=== PATIENT | female | born 1940 | race Caucasian/White ===

== ENCOUNTER → 2017-12-18 16:07 | Outpatient (CLI) | payer MEDICARE, OTHER, SELFPAY ==
[2017-12-18 17:40] LABS: Anion Gap 6 (5-15); BUN 26 mg/dL (7-18); Chloride 103 mmol/L (98-107); Creatinine, Serum 1.04 mg/dL (0.55-1.02); EST Glomerular Filtration Rate 54 mL/min (>60); Est Glom Filt Rate - Afr Amer 66 mL/min (>60); Glucose 92 mg/dL (74-106); Potassium 4.2 mmol/L (3.5-5.1); Sodium Level 139 mmol/L (136-145)
== END ==
PROVIDERS: Family Provider Family Medicine; PCP Family Medicine; Visit Provider Family Medicine
DX: I10 Essential (primary) hypertension (principal)
CPT/HCPCS: 36415; 80048

== ENCOUNTER 2018-02-28 15:30 | Outpatient (RCR) | payer MEDICARE, OTHER, SELFPAY ==
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
--- NOTE | 2018-02-05 16:53 | HP.PTREVAL_ITS ---
Gamal Rey, It has been my pleasure to treat LUANA LITTLE over the last 8 visits for DDD /LBP. Please see the progress note below for an update on the physical therapy plan of care! Subjective: Pt feels that she has made a little bit of improvement. She feels her improvement has been made as far as posture. Her pain is still there when if she sits down and does not have back support so she puts a blanket back there. She wants to continue with therapy as she still feels she is making improvements. Pt reports that she does exercises on the days when she feels good. Pt reports that her balance has been pretty good. Objective/Function: Pt still walks with decrease stride and decreased foot clearance. She also walks with knees bent. She is I HEP and does it when she feels well. FGA: 10. LE MMT: B hip flex 3+/5, Knee flex 4-/5, knee ext 4-/ 5. Pt was standing in the hallway and all the sudden she scissored and corrected balance as she stepped toward the wall. Plan Plan: 2X/ week for 4 weeks to Work on Postural strength, and core stability. Continue to work on LE strength and balance as well especially with gait. Goals Goal 1:: I HEP Goal Time Frame: 4-6 Weeks Goal Progress: Goal Met Goal 2:: Increase B LE strength to 4/5 hip abd, hip flex, knee flex and knee ext Goal Time Frame: 4-6 Weeks Goal 3:: Increase FGA by 5 points to decrease fall risk (improve to score of 13) . Goal Time Frame: 4-6 Weeks Goal Progress: Progressing Goal 4:: Increase gait to be able to walk with increase stride and less vearing with gait Goal Time Frame: 4-6 Weeks Goal Progress: Progressing Goal 5:: Decrease back pain to 1/10 with ADL's Goal Time Frame: 4-6 Weeks Anticipated Interventions Patient/Client Instruction: Educate patient on: Plan of Care For the Purpose of:: To decrease pain, To increase ROM, To improve muscle performance and motor function, To increase tolerance to activity/condition/ position Therapeutic Exercise to Include: Strength training, Balance training, Coordination, Body mechanics, Postural training, Flexibilty training, Gait and locomotor training, Neuromotor development, Passive ROM, Active ROM, Dynamic Lumbar Stabilization, Scapular Strength/Stabilization For the Purpose of:: To decrease pain, To increase ROM, To improve nutrient delivery to tissue, To improve muscle performance and motor function, To improve ability to perform ADL's, To increase tolerance to activity/condition/ position, To improve performance and independence with ADL's, To decrease level of supervision to perform tasks, To improve ability of physical actions for home /community/work/leisure, To improve gait and locomotor functions, To increase flexibility/ROM, To improve balance, To improve safety with gait Functional Training to Include: Gait training For the Purpose of:: To improve gait and locomotor functions, To improve safety with gait Manual Therapy Techniques to Include: Passive ROM, Soft tissue mobilization For the Purpose of:: To decrease pain, To decrease swelling/inflammation, To increase ROM, To improve nutrient delivery to tissue, To improve muscle performance and motor function Thermo therapy (hot pack): Yes For the Purpose of:: To decrease pain, To increase ROM, To improve nutrient delivery to tissue Please do not hesitate to contact me at [phone] by phone or Fax: if you have questions or concerns regarding this new plan of care! Sincerely, Pat Bowen
--- NOTE | 2018-06-14 13:45 | HP.PTDCNRP_ITS ---
HP - Discharge Summary (1) - Patient Information LUNAA LITTLE was seen in my office for initial evaluation on 01/01/18. The following Plan of Care was established for this patient: Initial Frequency: 2x /Week Initial Duration: 4 Weeks - Anticipated Interventions Patient/Client Instruction: Educate patient on: Plan of Care For the Purpose of:: To decrease pain, To increase ROM, To improve muscle performance and motor function, To increase tolerance to activity/condition/ position Therapeutic Exercise to Include: Strength training, Balance training, Coordination, Body mechanics, Postural training, Flexibilty training, Gait and locomotor training, Neuromotor development, Passive ROM, Active ROM, Dynamic Lumbar Stabilization, Scapular Strength/Stabilization For the Purpose of:: To decrease pain, To increase ROM, To improve nutrient delivery to tissue, To improve muscle performance and motor function, To improve ability to perform ADL's, To increase tolerance to activity/condition/ position, To improve performance and independence with ADL's, To decrease level of supervision to perform tasks, To improve ability of physical actions for home /community/work/leisure, To improve gait and locomotor functions, To increase flexibility/ROM, To improve balance, To improve safety with gait Functional Training to Include: Gait training For the Purpose of:: To improve gait and locomotor functions, To improve safety with gait Manual Therapy Techniques to Include: Passive ROM, Soft tissue mobilization For the Purpose of:: To decrease pain, To decrease swelling/inflammation, To increase ROM, To improve nutrient delivery to tissue, To improve muscle performance and motor function Thermo therapy (hot pack): Yes For the Purpose of:: To decrease pain, To increase ROM, To improve nutrient delivery to tissue This patient was last seen in our office 02/28/18. Pertinent comments regarding their Physical therapy will appear below: DC PT as pt will be doing some home health until she gets stronger. DC PT At this point I will be discontinuing this patient from physical therapy. I would be happy to see this patient again in the future if found appropriate by the physician. Thank you! Pat Bowen
== END 2018-02-28 19:00 | disposition home or self-care (01) ==
LOC: PT 15:30
PROVIDERS: Family Provider Family Medicine; PCP Family Medicine; Visit Provider Family Medicine
DX: M50.30 Other cervical disc degeneration, unspecified cervical region (principal); M54.5 Low back pain
CPT/HCPCS: 97110; 97116; 97162

== ENCOUNTER → 2018-03-06 14:46 | Outpatient (CLI) | payer MEDICARE, OTHER, SELFPAY ==
--- NOTE | 2018-03-06 14:51 | RAD_ITS ---
STUDY: X-RAY - LEFT KNEE REASON FOR EXAM: Female, 77 years old. Right-sided knee pain after fall one month ago. TECHNIQUE: Four view(s) of the knee. COMPARISON: None. FINDINGS: There is demineralization of the visualized distal femur. There is demineralization of the tibia and fibula. Normal proximal tibiofibular articulation. There is no demonstrated fracture. Normal medial femorotibial compartment. Normal lateral femorotibial compartment. Normal patellofemoral articulation. There is no demonstrated joint effusion. The soft tissue structures are unremarkable. RAD/Knee 4 or More Views IMPRESSION: Osteopenia without radiographic evidence for healing fracture. Electronically Signed: Jeanette Arnold MD at 9:17 EDT , Service support ,
--- NOTE | 2018-03-06 14:51 | RAD_ITS ---
STUDY: X-RAY - RIGHT KNEE REASON FOR EXAM: Female, 77 years old. Pain, fall TECHNIQUE: 4 view(s) of the knee. COMPARISON: None. FINDINGS: Normal visualized distal femur. Normal visualized proximal tibia and fibula. Normal proximal tibiofibular articulation. Normal medial femorotibial compartment. Normal lateral femorotibial compartment. Normal patellofemoral articulation. The soft tissue structures are unremarkable. RAD/Knee 4 or More Views IMPRESSION: Normal x-ray examination of the knee. Electronically Signed: Papo Vidal DO at 0:01 EDT , Service support ,
== END ==
PROVIDERS: Family Provider Family Medicine; PCP Family Medicine; Visit Provider Family Medicine
DX: M25.561 Pain in right knee (principal); M25.562 Pain in left knee
CPT/HCPCS: 73564

== ENCOUNTER → 2018-04-10 15:10 | Outpatient (CLI) | payer MEDICARE, OTHER, SELFPAY ==
--- NOTE | 2018-04-10 15:13 | BI_ITS ---
MAMMOGRAPHY - BILATERAL SCREENING REASON FOR EXAM: Female, 77 years old. Routine annual screening examination. PERTINENT HISTORY: Sister with breast cancer. Mother with breast cancer. History renal cell carcinoma. TECHNIQUE: Digital bilateral breast yesika (3D mammographic acquisition) in the CC and MLO projections. 2-D mediolateral oblique (MLO) and craniocaudad (CC) views of both breasts were obtained. CAD: Full Field Digital Mammography with Computer Added Detection was performed. COMPARISON: Comparison is made with prior study dated February 28, 2017 and February 07, 2016. FINDINGS: Breast Composition: There are scattered areas of fibroglandular density. There are no dominant masses or suspicious calcifications. No other significant abnormalities are identified. There has been no significant change since the prior study. BI/SCREENING MAMM (CAD), BILAT IMPRESSION: Stable bilateral screening mammogram. Yearly follow-up mammogram recommended. (A) ASSESSMENT CATEGORY: BIRADS Category 1: Negative. A letter regarding these results will be sent to the patient by the facility within 30 days. Approximately 10% of breast cancers are not detected by mammography. A normal mammogram should not delay biopsy of a clinically suspicious abnormality. [id number] Electronically Signed: Tyler Mcdonough MD at 12:41 EDT Tel [phone], Service support ,
== END ==
PROVIDERS: Family Provider Family Medicine; PCP Family Medicine; Visit Provider Family Medicine
DX: Z12.31 Encounter for screening mammogram for malignant neoplasm of breast (principal)
CPT/HCPCS: 77063; 77067

== ENCOUNTER → 2018-04-17 16:46 | Outpatient (CLI) | payer MEDICARE, OTHER, SELFPAY ==
[2018-04-17 18:00] LABS: Hematocrit 42.5 % (37-47); Mean Corp Hgb Conc 32.9 g/gl (32-36); Mean Corpuscular Hgb 30.6 pg (27.0-32.0); Mean Platelet Vol. 13.3 fl (6.2-12.0); Platelet Count 110 K/mm3 (150-450); RBC Distribution Width CV 12.3 % (11.6-14.6); RBC Distribution Width SD 41.3 fl (35.1-43.9); Red Blood Count 4.57 M/mm3 (4.2-5.4)
[2018-04-17 18:11] LABS: Scan Indicated on CBC? Y/N NO
[2018-04-17 18:12] LABS: Anion Gap 9 (5-15); BUN 29 mg/dL (7-18); BUN/Creat Ratio 29.7 RATIO (10-20); Calcium,Total 9.2 mg/dL (8.5-10.1); Chloride 103 mmol/L (98-107); Creatinine, Serum 0.98 mg/dL (0.55-1.02); EST Glomerular Filtration Rate 59 mL/min (>60); Est Glom Filt Rate - Afr Amer 71 mL/min (>60); Glucose 90 mg/dL (74-106); Potassium 3.8 mmol/L (3.5-5.1); Sodium Level 143 mmol/L (136-145)
== END ==
PROVIDERS: Family Provider Family Medicine; PCP Family Medicine; Visit Provider Family Medicine
DX: R60.0 Localized edema (principal)
CPT/HCPCS: 36415; 80048; 85027

== ENCOUNTER → 2018-04-22 10:28 | Outpatient (CLI) | payer MEDICARE, OTHER, SELFPAY ==
--- NOTE | 2018-04-22 10:35 | RAD_ITS ---
STUDY: X-RAY - RIGHT FOOT CLINICAL: Female, 77 years old. Pain TECHNIQUE: 3 view(s) of the foot. COMPARISON: None. FINDINGS: Normal talus, calcaneus, and tarsal bones. Normal visualized subtalar, talonavicular, calcaneocuboid, tarsal and tarsometatarsal articulations. Normal metatarsi. Normal metatarsophalangeal joint of the great toe. Normal tibial and fibular sesamoid bones. Normal interphalangeal joint of the great toe. Normal phalanges of the great toe. Normal second through fifth metatarsophalangeal joints. Normal interphalangeal joints and phalanges of the lesser toes. The soft tissue structures are unremarkable. RAD/Foot min 3 Views IMPRESSION: No fracture. Mild swelling of the dorsum of the foot Electronically Signed: Nicholas Neil, at 7:15 EDT Tel , Service support ,
--- NOTE | 2018-04-22 10:35 | RAD_ITS ---
STUDY: X-RAY - RIGHT ANKLE REASON FOR EXAM: Female, 77 years old. Patient fell. Pain TECHNIQUE: Swelling of the ankle. No fracture. view(s) of the ankle. COMPARISON: None. FINDINGS: There is mild swelling of the ankle especially around the lateral malleolus but no acute fractures or dislocations. The ankle mortise and the subtalar joints are normal RAD/Ankle min 3 Views IMPRESSION: Normal x-ray examination of the ankle. Electronically Signed: Nicholas Neil, at 7:16 EDT Tel , Service support ,
== END ==
PROVIDERS: Family Provider Family Medicine; PCP Family Medicine; Visit Provider Family Medicine
DX: M25.579 Pain in unspecified ankle and joints of unspecified foot (principal)
CPT/HCPCS: 73610; 73630

== ENCOUNTER 2018-06-27 08:00 | Outpatient (RCR) | payer MEDICARE, OTHER, SELFPAY ==
[2018-06-07 10:39] VITALS: BP 144/76; PULSE 67; RESP 16; TEMP 36.7; BMI 29.5
--- NOTE | 2018-06-07 11:34 | PCM.WC.HP ---
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 History of Wound: 27-year-old white female who suffers from extreme GERD that cannot lay flat at all in bed. She sits in a recliner all day and has developed a tiny sore on her left buttocks cheek. From sitting so much she is actually developed a scar tissue area on the edge of her buttocks that has been getting the sores. Have tried to use numerous ointments and treatments without success. We discussed offloading with a pillow under her 1 hip while she sitting in her recliner chair. Patient is on able to tolerate laying in bed with her head elevated and on her side. The area around the sore is not have cellulitis or infection noted. Ghost with family after healing closed the DuoDERM would help every 3 days to keep that from breaking down on her skin. Past Medical History Past Medical History: Decubitus ulcer stage II left buttocks Allergies/Adverse Reactions: Allergies nitrofurantoin macrocrystalline [From Macrodantin] Allergy (Verified 08/25/16 15:17) Unknown phenazopyridine HCl [From Azo] Allergy (Verified 08/25/16 15:17) Unknown Sulfa (Sulfonamide Antibiotics) Allergy (Verified 08/25/16 15:17) Swelling bacitracin [From Neosporin ([id number])] Adverse Reaction (Verified 08/25/16 15:17) Rash neomycin [From Neosporin ([id number])] Adverse Reaction (Verified 08/25/16 15:17) Rash polymyxin B [From Neosporin ([id number])] Adverse Reaction (Verified 08/25/16 15:17) Rash Home Medications: Ambulatory Orders Medication Instructions Recorded Atenolol [Tenormin (beta Chato)] 25 mg PO DAILY 08/25/16 Bacillus/Protease/Amylas/Lipas 1 each PO DAILY 08/25/16 [Digest Adv Intensive Bowel Cap] Calcium Carbonate/Vitamin D3 1 each PO DAILY 08/25/16 [Calcium 600-Vit D3 200 Tablet] Cephalexin [Keflex] 500 mg PO Q6 #20 capsule 08/25/16 Cholecalciferol (Vitamin D3) 2,000 unit PO DAILY 08/25/16 [D3-2000] Cranberry 1 tab PO DAILY 08/25/16 Hydrochlorothiazide [Hctz] 25 mg PO DAILY 08/25/16 Multivit-Min/FA/Lycopen/Lutein 1 each PO DAILY 08/25/16 [Adults 50+ Multivitamin Tablet] Oxybutynin Chloride [Ditropan Xl] 10 mg PO DAILY 08/25/16 Simvastatin [Zocor] 10 mg PO QHS 08/25/16 Vit C/E/Zn/Coppr/Lutein/Zeaxan 1 each PO DAILY 08/25/16 [Preservision Areds 2 Softgel] Lives: With Family Smoking Status: Never smoker Tobacco Use: Non-smoker Alcohol: None Drugs: None Review of Systems Constitutional: Denies: Chills, Fever Eyes: Denies: Blurred vision, Drainage, Pain HEENT: Denies: Difficulty Hearing, Difficulty Swallowing, Sore Throat, Visual Changes Cardiovascular: Denies: Chest Pain, Palpitations, Syncope Respiratory: Denies: Cough, Shortness of Breath Gastrointestinal: Denies: Abdominal Pain, Nausea, Vomiting Genitourinary: Denies: Dysuria, Frequency Musculoskeletal: Denies: Joint Pain, Muscle pain Skin: Reports: Wounds - Cubitus ulcer left buttocks. Denies: Jaundice, Rash Neurological: Denies: Balance problems, Change in Speech, Difficulty swallowing, Focal weakness Psychiatric: Denies: Anxiety, Depression Endocrine: Denies: Change in Body Habitus Hematologic/ Lymphatic: Denies: Adenopathy - Physical Exam Vital Signs Temp Pulse Resp BP 98.0 F 67 16 144/76 H 06/07/18 10:39 06/07/18 10:39 06/07/18 10:39 06/07/18 10:39 General: Oriented x3, Cooperative, Well developed HEENT: Atraumatic, PERRLA Oral: Moist Mucosa Neck: Supple, No JVD Lungs: Clear to auscultation, Normal air movement Cardiovascular: Regular rate, Regular Rhythm Abdomen: Bowel Sounds Present, Soft, Non Tender, No Hepato-splenomegaly Extremities: No clubbing, No edema Skin: Ulcer/ Wound - Decubitus ulcer left buttocks stage II Wound Measurements and Assessment - Nurse 1 - General Ulcer Measurement Start: 06/07/18 10:38 Freq: Status: Active Protocol: Activity Type Activity Date Activity User E-Sign Co-Sign Detail Recorded Client Recorded Date Recorded By Document 06/07/18 10:39 [id number] 06/07/18 11:00 06/07/18 10:39 Wound Center Nurse 1 [Ulcer Assessment] #1 left buttocks -Combined with other wound No -Current Size (cm) - Length 0.2 -Current Size (cm) - Width 0.1 -Current Size (cm) - Depth 0.1 -Total Square Cm 0.02 -Date of Last Picture (Recall this 06/07/18 field) -Photo Taken Yes -Epithelialization Large 67-100% -Tunneling No -Undermining/Tunneling No -Circular Undermining No -Exudate Amt None Present (0 %) -Wound Margin Thickened -Granulation Amt None Present (0 %) -Slough/Fibrin Yes -Necrosis Amt Large (67-100%) -Necrotic Tissue Type Adherent Slough -Moisture (Natalie-wound Skin Appearance Dry/Scaly ) -Color (Natalie-wound Skin Appearance) Assessed -Temperature (Natalie-wound Skin No Abnormality Appearance) (Pt Warm) -Tenderness on Palpation (Natalie-wound No Skin Appearance) -Ulcer Cleansing Rinsed/ Irrigated with Saline -Foul Odor after Cleansing No -Anesthetic Used 4% Lidocaine Solution - Nurse 2 - General Ulcer CM Notes Start: 06/07/18 10:38 Freq: Status: Active Protocol: Activity Type Activity Date Activity User E-Sign Co-Sign Detail Recorded Client Recorded Date Recorded By Document 06/07/18 11:08 JS [id number] 06/07/18 11:10 06/07/18 11:08 Wound Center Nurse 2 [Procedure/Treatment] -Time 11:10 -Correct Patient Yes -Correct Side, Site, Position Yes -Correct Procedure Yes -Procedure Performed Yes -Type of Procedure Debridement -Clinical Debridement Subcutaneous -Post Debridement Size (cm) - Length 0.3 -Post Debridement Size (cm) - Width 0.4 -Post Debridement Size (cm) - Depth 0.2 -Total Square Cm 0.12 -Wound/Ulcer Outcome Not Healed -Ulcer Cleansing Rinsed/ Irrigated with Saline -Foul Odor after Cleansing No -Bioengineered Tissue No -Bleeding Controlled with NA -Treatment Response Procedure Tolerated Well [See Physician Procedure note for Specifics] Pain Scale: 0-10 Numeric [Pain] -Is Patient Pain Free? Yes Musculoskeletal: No Tenderness to Palpation of Joints or Extremities Lymphatic: No Cervical, Supraclavicular, or Inguinal Adenopathy Neurological: Cranial nerves II-XII grossly intact, Neuro grossly intact Psych/Mental Status: Normal Affect, Appropriate, Alert and oriented to time, place, person, mood and affect Debridement Note Post-Debridement Measurements/Treatment WC - Nurse 2 - General Ulcer CM Notes Start: 06/07/18 10:38 Freq: Status: Active Protocol: Activity Type Activity Date Activity User E-Sign Co-Sign Detail Recorded Client Recorded Date Recorded By Document 06/07/18 11:08 TAI [id number] 06/07/18 11:10 TAI 06/07/18 11:08 Wound Center Nurse 2 #1 left buttocks -Time 11:10 -Correct Patient Yes -Correct Side, Site, Position Yes -Correct Procedure Yes -Procedure Performed Yes -Type of Procedure Debridement -Clinical Debridement Subcutaneous -Post Debridement Size (cm) - Length 0.3 -Post Debridement Size (cm) - Width 0.4 -Post Debridement Size (cm) - Depth 0.2 -Total Square Cm 0.12 -Wound/Ulcer Outcome Not Healed -Ulcer Cleansing Rinsed/ Irrigated with Saline -Foul Odor after Cleansing No -Bioengineered Tissue No -Bleeding Controlled with NA -Treatment Response Procedure Tolerated Well Pain Scale: 0-10 Numeric Is Patient Pain Free? Yes Wound debrided: Decubitus ulcer left buttocks cheek Type of Debridement: Excisional debridement Anesthesia Used: 5% Lidocaine Gel Depth: Down to and including healthy tissue, in the subcutaneous layer Percentage of wound debrided: 100 Instrument Used: 5mm curette Tissue Removed: Devitalized tissue Severity: Limited To Skin Breakdown Amount of bleeding with debridement: Mild Bleeding Controlled with: Compression and gauze Patient tolerated procedure well Assessment/Plan Active Problems Decubitus ulcer of left buttock, stage 2 (Acute) GERD (gastroesophageal reflux disease) (Acute) Urine incontinence (Acute) Assessment: Decubitus ulcer left buttocks cheek. Pain in buttocks. Gastric reflux. Urine incontinence Plan: Wash area with Hibiclens. Apply Aquacel silver to the base moistened cover with a 2 x 2 and OpSite twice daily. Offload with pillows under hips and chair follow-up in 1 week. Transfer care to a doctor because patient is getting home health care for residential
--- NOTE | 2018-06-07 11:38 | HP.PCM_ITS ---
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 History of Wound: 27-year-old white female who suffers from extreme GERD that cannot lay flat at all in bed. She sits in a recliner all day and has developed a tiny sore on her left buttocks cheek. From sitting so much she is actually developed a scar tissue area on the edge of her buttocks that has been getting the sores. Have tried to use numerous ointments and treatments without success. We discussed offloading with a pillow under her 1 hip while she sitting in her recliner chair. Patient is on able to tolerate laying in bed with her head elevated and on her side. The area around the sore is not have cellulitis or infection noted. Ghost with family after healing closed the DuoDERM would help every 3 days to keep that from breaking down on her skin. Past Medical History Past Medical History: Decubitus ulcer stage II left buttocks Allergies/Adverse Reactions: Allergies nitrofurantoin macrocrystalline [From Macrodantin] Allergy (Verified 08/25/16 15 :17) Unknown phenazopyridine HCl [From Azo] Allergy (Verified 08/25/16 15:17) Unknown Sulfa (Sulfonamide Antibiotics) Allergy (Verified 08/25/16 15:17) Swelling bacitracin [From Neosporin ([id number])] Adverse Reaction (Verified 08/25/16 15:17) Rash neomycin [From Neosporin ([id number])] Adverse Reaction (Verified 08/25/16 15 :17) Rash polymyxin B [From Neosporin ([id number])] Adverse Reaction (Verified 15:17) Rash Home Medications: Ambulatory Orders Medication Instructions Recorded Atenolol [Tenormin (beta Chato)] 25 mg PO DAILY 08/25/16 Bacillus/Protease/Amylas/Lipas 1 each PO DAILY 08/25/16 [Digest Adv Intensive Bowel Cap] Calcium Carbonate/Vitamin D3 1 each PO DAILY 08/25/16 [Calcium 600-Vit D3 200 Tablet] Cephalexin [Keflex] 500 mg PO Q6 #20 capsule 08/25/16 Cholecalciferol (Vitamin D3) 2,000 unit PO DAILY 08/25/16 [D3-2000] Cranberry 1 tab PO DAILY 08/25/16 Hydrochlorothiazide [Hctz] 25 mg PO DAILY 08/25/16 Multivit-Min/FA/Lycopen/Lutein 1 each PO DAILY 08/25/16 [Adults 50+ Multivitamin Tablet] Oxybutynin Chloride [Ditropan Xl] 10 mg PO DAILY 08/25/16 Simvastatin [Zocor] 10 mg PO QHS 08/25/16 Vit C/E/Zn/Coppr/Lutein/Zeaxan 1 each PO DAILY 08/25/16 [Preservision Areds 2 Softgel] Lives: With Family Smoking Status: Never smoker Tobacco Use: Non-smoker Alcohol: None Drugs: None Review of Systems Constitutional: Denies: Chills, Fever Eyes: Denies: Blurred vision, Drainage, Pain HEENT: Denies: Difficulty Hearing, Difficulty Swallowing, Sore Throat, Visual Changes Cardiovascular: Denies: Chest Pain, Palpitations, Syncope Respiratory: Denies: Cough, Shortness of Breath Gastrointestinal: Denies: Abdominal Pain, Nausea, Vomiting Genitourinary: Denies: Dysuria, Frequency Musculoskeletal: Denies: Joint Pain, Muscle pain Skin: Reports: Wounds - Cubitus ulcer left buttocks. Denies: Jaundice, Rash Neurological: Denies: Balance problems, Change in Speech, Difficulty swallowing , Focal weakness Psychiatric: Denies: Anxiety, Depression Endocrine: Denies: Change in Body Habitus Hematologic/ Lymphatic: Denies: Adenopathy - Physical Exam Vital Signs Temp Pulse Resp BP 98.0 F 67 16 144/76 H 06/07/18 10:39 06/07/18 10:39 06/07/18 10:39 06/07/18 10:39 General: Oriented x3, Cooperative, Well developed HEENT: Atraumatic, PERRLA Oral: Moist Mucosa Neck: Supple, No JVD Lungs: Clear to auscultation, Normal air movement Cardiovascular: Regular rate, Regular Rhythm Abdomen: Bowel Sounds Present, Soft, Non Tender, No Hepato-splenomegaly Extremities: No clubbing, No edema Skin: Ulcer/ Wound - Decubitus ulcer left buttocks stage II Wound Measurements and Assessment - Nurse 1 - General Ulcer Measurement Start: 06/07/18 10:38 Freq: Status: Active Protocol: Activity Type Activity Date Activity User E-Sign Co-Sign Detail Recorded Client Recorded Date Recorded By Document 06/07/18 10:39 [id number] 06/07/18 11:00 06/07/18 10:39 Wound Center Nurse 1 [Ulcer Assessment] #1 left buttocks -Combined with other wound No -Current Size (cm) - Length 0.2 -Current Size (cm) - Width 0.1 -Current Size (cm) - Depth 0.1 -Total Square Cm 0.02 -Date of Last Picture (Recall this 06/07/18 field) -Photo Taken Yes -Epithelialization Large 67-100% -Tunneling No -Undermining/Tunneling No -Circular Undermining No -Exudate Amt None Present (0 %) -Wound Margin Thickened -Granulation Amt None Present (0 %) -Slough/Fibrin Yes -Necrosis Amt Large (67-100%) -Necrotic Tissue Type Adherent Slough -Moisture (Natalie-wound Skin Appearance Dry/Scaly ) -Color (Natalie-wound Skin Appearance) Assessed -Temperature (Natalie-wound Skin No Abnormality Appearance) (Pt Warm) -Tenderness on Palpation (Natalie-wound No Skin Appearance) -Ulcer Cleansing Rinsed/ Irrigated with Saline -Foul Odor after Cleansing No -Anesthetic Used 4% Lidocaine Solution - Nurse 2 - General Ulcer CM Notes Start: 06/07/18 10:38 Freq: Status: Active Protocol: Activity Type Activity Date Activity User E-Sign Co-Sign Detail Recorded Client Recorded Date Recorded By Document 06/07/18 11:08 JS [id number] 06/07/18 11:10 06/07/18 11:08 Wound Center Nurse 2 [Procedure/Treatment] -Time 11:10 -Correct Patient Yes -Correct Side, Site, Position Yes -Correct Procedure Yes -Procedure Performed Yes -Type of Procedure Debridement -Clinical Debridement Subcutaneous -Post Debridement Size (cm) - Length 0.3 -Post Debridement Size (cm) - Width 0.4 -Post Debridement Size (cm) - Depth 0.2 -Total Square Cm 0.12 -Wound/Ulcer Outcome Not Healed -Ulcer Cleansing Rinsed/ Irrigated with Saline -Foul Odor after Cleansing No -Bioengineered Tissue No -Bleeding Controlled with NA -Treatment Response Procedure Tolerated Well [See Physician Procedure note for Specifics] Pain Scale: 0-10 Numeric [Pain] -Is Patient Pain Free? Yes Musculoskeletal: No Tenderness to Palpation of Joints or Extremities Lymphatic: No Cervical, Supraclavicular, or Inguinal Adenopathy Neurological: Cranial nerves II-XII grossly intact, Neuro grossly intact Psych/Mental Status: Normal Affect, Appropriate, Alert and oriented to time, place, person, mood and affect Debridement Note Post-Debridement Measurements/Treatment WC - Nurse 2 - General Ulcer CM Notes Start: 06/07/18 10:38 Freq: Status: Active Protocol: Activity Type Activity Date Activity User E-Sign Co-Sign Detail Recorded Client Recorded Date Recorded By Document 06/07/18 11:08 [email or web address] [id number] 06/07/18 11:10 TAI 06/07/18 11:08 Wound Center Nurse 2 #1 left buttocks -Time 11:10 -Correct Patient Yes -Correct Side, Site, Position Yes -Correct Procedure Yes -Procedure Performed Yes -Type of Procedure Debridement -Clinical Debridement Subcutaneous -Post Debridement Size (cm) - Length 0.3 -Post Debridement Size (cm) - Width 0.4 -Post Debridement Size (cm) - Depth 0.2 -Total Square Cm 0.12 -Wound/Ulcer Outcome Not Healed -Ulcer Cleansing Rinsed/ Irrigated with Saline -Foul Odor after Cleansing No -Bioengineered Tissue No -Bleeding Controlled with NA -Treatment Response Procedure Tolerated Well Pain Scale: 0-10 Numeric Is Patient Pain Free? Yes Wound debrided: Decubitus ulcer left buttocks cheek Type of Debridement: Excisional debridement Anesthesia Used: 5% Lidocaine Gel Depth: Down to and including healthy tissue, in the subcutaneous layer Percentage of wound debrided: 100 Instrument Used: 5mm curette Tissue Removed: Devitalized tissue Severity: Limited To Skin Breakdown Amount of bleeding with debridement: Mild Bleeding Controlled with: Compression and gauze Patient tolerated procedure well Assessment/Plan Active Problems Decubitus ulcer of left buttock, stage 2 (Acute) GERD (gastroesophageal reflux disease) (Acute) Urine incontinence (Acute) Assessment: Decubitus ulcer left buttocks cheek. Pain in buttocks. Gastric reflux. Urine incontinence Plan: Wash area with Hibiclens. Apply Aquacel silver to the base moistened cover with a 2 x 2 and OpSite twice daily. Offload with pillows under hips and chair follow-up in 1 week. Transfer care to a doctor because patient is getting home health care for longterm
[2018-06-13 08:04] VITALS: BP 167/88; PULSE 69; RESP 18; TEMP 37.1; BMI 29.5
--- NOTE | 2018-06-13 08:25 | PCM.WC.HP ---
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 History of Wound: Transfer of care from Kim Diaz NP. Ms Price is a 77yo with PMH significant for sever GERD and Urinary Incontinence who has been managed for Left buttock pressure ulcer. Her ulcers are said to be a result of prolonged sitting due to worsening GERD on laying down. So far, she has had significant progress on current wound care regimen and denies any new complaints at this time. She denoies chils, fever, nausea, vomitting or any change in her bowel habit. Past Medical History Allergies/Adverse Reactions: Allergies nitrofurantoin macrocrystalline [From Macrodantin] Allergy (Verified 08/25/16 15:17) Unknown phenazopyridine HCl [From Azo] Allergy (Verified 08/25/16 15:17) Unknown Sulfa (Sulfonamide Antibiotics) Allergy (Verified 08/25/16 15:17) Swelling bacitracin [From Neosporin ([id number])] Adverse Reaction (Verified 08/25/16 15:17) Rash neomycin [From Neosporin ([id number])] Adverse Reaction (Verified 08/25/16 15:17) Rash polymyxin B [From Neosporin ([id number])] Adverse Reaction (Verified 08/25/16 15:17) Rash Home Medications: Ambulatory Orders Medication Instructions Recorded Atenolol [Tenormin (beta Chato)] 25 mg PO DAILY 08/25/16 Bacillus/Protease/Amylas/Lipas 1 each PO DAILY 08/25/16 [Digest Adv Intensive Bowel Cap] Calcium Carbonate/Vitamin D3 1 each PO DAILY 08/25/16 [Calcium 600-Vit D3 200 Tablet] Cephalexin [Keflex] 500 mg PO Q6 #20 capsule 08/25/16 Cholecalciferol (Vitamin D3) 2,000 unit PO DAILY 08/25/16 [D3-2000] Cranberry 1 tab PO DAILY 08/25/16 Hydrochlorothiazide [Hctz] 25 mg PO DAILY 08/25/16 Multivit-Min/FA/Lycopen/Lutein 1 each PO DAILY 08/25/16 [Adults 50+ Multivitamin Tablet] Oxybutynin Chloride [Ditropan Xl] 10 mg PO DAILY 08/25/16 Simvastatin [Zocor] 10 mg PO QHS 08/25/16 Vit C/E/Zn/Coppr/Lutein/Zeaxan 1 each PO DAILY 08/25/16 [Preservision Areds 2 Softgel] Lives: With Family Smoking Status: Never smoker Tobacco Use: Non-smoker Alcohol: None Drugs: None Review of Systems Constitutional: Denies: Anorexia, Chills, Malaise, Weakness Eyes: Denies: Blurred vision, Pain, Redness HEENT: Denies: Difficulty Hearing, Difficulty Swallowing Cardiovascular: Denies: Chest Pain, Chest Tightness Respiratory: Denies: Cough, Shortness of Breath Gastrointestinal: Denies: Hematemesis, Vomiting Genitourinary: Denies: Hematuria Skin: Denies: Jaundice - Physical Exam Vital Signs Temp Pulse Resp BP 98.8 F 69 18 167/88 H 06/13/18 08:04 06/13/18 08:04 06/13/18 08:04 06/13/18 08:04 General: Alert, Oriented x3, Cooperative, No apparent distress HEENT: Atraumatic Oral: Moist Mucosa Neck: Supple Lungs: Normal air movement Abdomen: Non Tender Extremities: No cyanosis Skin: Ulcer/ Wound Wound Measurements and Assessment WC - Nurse 1 - General Ulcer Measurement Start: 06/07/18 10:38 Freq: Status: Active Protocol: Activity Type Activity Date Activity User E-Sign Co-Sign Detail Recorded Client Recorded Date Recorded By Document 06/13/18 08:04 [facility] [id number] 06/13/18 08:07 [facility] 06/13/18 08:04 Wound Center Nurse 1 [Ulcer Assessment] #1 left buttocks -Combined with other wound No -Current Size (cm) - Length 0.1 -Current Size (cm) - Width 0.1 -Current Size (cm) - Depth 0.1 -Total Square Cm 0.01 -Photo Taken No -Epithelialization Large 67-100% -Texture (Natalie-wound Skin Appearance) Scarring -Moisture (Natalie-wound Skin Appearance Dry/Scaly ) -Color (Natalie-wound Skin Appearance) Erythema -Temperature (Natalie-wound Skin No Abnormality Appearance) (Pt Warm) -Tenderness on Palpation (Natalie-wound No Skin Appearance) -Ulcer Cleansing Rinsed/ Irrigated with Saline -Foul Odor after Cleansing No -Anesthetic Used 4% Lidocaine Solution - Nurse 2 - General Ulcer CM Notes Start: 06/07/18 10:38 Freq: Status: Active Protocol: Activity Type Activity Date Activity User E-Sign Co-Sign Detail Recorded Client Recorded Date Recorded By Document 06/13/18 08:24 [id number] 06/13/18 08:25 06/13/18 08:24 Wound Center Nurse 2 [Procedure/Treatment] -Time 08:24 -Correct Patient Yes -Correct Side, Site, Position Yes -Correct Procedure Yes -Procedure Performed Yes -Type of Procedure Debridement -Clinical Debridement Subcutaneous -Post Debridement Size (cm) - Length 0.1 -Post Debridement Size (cm) - Width 0.1 -Post Debridement Size (cm) - Depth 0.1 -Total Square Cm 0.01 -Wound/Ulcer Outcome Not Healed -Ulcer Cleansing Rinsed/ Irrigated with Saline -Foul Odor after Cleansing No -Bioengineered Tissue No -Bleeding Controlled with NA -Treatment Response Procedure Tolerated Well [See Physician Procedure note for Specifics] Pain Scale: 0-10 Numeric [Pain] -Is Patient Pain Free? Yes Musculoskeletal: No Muscle Wasting Neurological: Cranial nerves II-XII grossly intact Psych/Mental Status: Normal Affect Debridement Note Post-Debridement Measurements/Treatment - Nurse 2 - General Ulcer CM Notes Start: 06/07/18 10:38 Freq: Status: Active Protocol: Activity Type Activity Date Activity User E-Sign Co-Sign Detail Recorded Client Recorded Date Recorded By Document 06/07/18 11:08 [id number] 06/07/18 11:10 Document 06/13/18 08:24 [id number] 06/13/18 08:25 06/07/18 06/13/18 11:08 08:24 Wound Center Nurse 2 #1 left buttocks -Time 11:10 08:24 -Correct Patient Yes Yes -Correct Side, Site, Position Yes Yes -Correct Procedure Yes Yes -Procedure Performed Yes Yes -Type of Procedure Debridement Debridement -Clinical Debridement Subcutaneous Subcutaneous -Post Debridement Size (cm) - Length 0.3 0.1 -Post Debridement Size (cm) - Width 0.4 0.1 -Post Debridement Size (cm) - Depth 0.2 0.1 -Total Square Cm 0.12 0.01 -Wound/Ulcer Outcome Not Healed Not Healed -Ulcer Cleansing Rinsed/ Rinsed/ Irrigated with Irrigated with Saline Saline -Foul Odor after Cleansing No No -Bioengineered Tissue No No -Bleeding Controlled with NA NA -Treatment Response Procedure Procedure Tolerated Well Tolerated Well Pain Scale: 0-10 Numeric Is Patient Pain Free? Yes Yes Wound debrided: Left Buttock Wound Grade/Stage: Stage II Type of Debridement: Excisional debridement Anesthesia Used: 4% Lidocaine Solution Depth: Down to and including healthy tissue, in the subcutaneous layer Percentage of wound debrided: 100 Instrument Used: 3mm curette Tissue Removed: Devitalized tissue Severity: Fat Layer Exposed Amount of bleeding with debridement: Mild Bleeding Controlled with: Pressure Patient tolerated procedure well Assessment/Plan Active Problems Decubitus ulcer of left buttock, stage 2 (Acute) GERD (gastroesophageal reflux disease) (Acute) Urine incontinence (Acute) Assessment: Left Buttocks Decubitus ulcer due to prolonged sitting. Sever GERD. Urinary Incontinence. Plan: Debridement done as documeneted above, procedure was well tolerated. Continue aquacel ag with adaptic over top. Continue barrier dressing and powder for moisture control. Gel Cushions for sitting and low loss air mattress. Increased protein intake recommended. Follow up in 1 week. Advised to call with any questions or concerns.
--- NOTE | 2018-06-13 08:31 | HP.PCM_ITS ---
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 History of Wound: Transfer of care from Kim Diaz NP. Ms Price is a 77yo with PMH significant for sever GERD and Urinary Incontinence who has been managed for Left buttock pressure ulcer. Her ulcers are said to be a result of prolonged sitting due to worsening GERD on laying down. So far, she has had significant progress on current wound care regimen and denies any new complaints at this time. She denoies chils, fever, nausea, vomitting or any change in her bowel habit. Past Medical History Allergies/Adverse Reactions: Allergies nitrofurantoin macrocrystalline [From Macrodantin] Allergy (Verified 08/25/16 15 :17) Unknown phenazopyridine HCl [From Azo] Allergy (Verified 08/25/16 15:17) Unknown Sulfa (Sulfonamide Antibiotics) Allergy (Verified 08/25/16 15:17) Swelling bacitracin [From Neosporin ([id number])] Adverse Reaction (Verified 08/25/16 15:17) Rash neomycin [From Neosporin ([id number])] Adverse Reaction (Verified 08/25/16 15 :17) Rash polymyxin B [From Neosporin ([id number])] Adverse Reaction (Verified 15:17) Rash Home Medications: Ambulatory Orders Medication Instructions Recorded Atenolol [Tenormin (beta Chato)] 25 mg PO DAILY 08/25/16 Bacillus/Protease/Amylas/Lipas 1 each PO DAILY 08/25/16 [Digest Adv Intensive Bowel Cap] Calcium Carbonate/Vitamin D3 1 each PO DAILY 08/25/16 [Calcium 600-Vit D3 200 Tablet] Cephalexin [Keflex] 500 mg PO Q6 #20 capsule 08/25/16 Cholecalciferol (Vitamin D3) 2,000 unit PO DAILY 08/25/16 [D3-2000] Cranberry 1 tab PO DAILY 08/25/16 Hydrochlorothiazide [Hctz] 25 mg PO DAILY 08/25/16 Multivit-Min/FA/Lycopen/Lutein 1 each PO DAILY 08/25/16 [Adults 50+ Multivitamin Tablet] Oxybutynin Chloride [Ditropan Xl] 10 mg PO DAILY 08/25/16 Simvastatin [Zocor] 10 mg PO QHS 08/25/16 Vit C/E/Zn/Coppr/Lutein/Zeaxan 1 each PO DAILY 08/25/16 [Preservision Areds 2 Softgel] Lives: With Family Smoking Status: Never smoker Tobacco Use: Non-smoker Alcohol: None Drugs: None Review of Systems Constitutional: Denies: Anorexia, Chills, Malaise, Weakness Eyes: Denies: Blurred vision, Pain, Redness HEENT: Denies: Difficulty Hearing, Difficulty Swallowing Cardiovascular: Denies: Chest Pain, Chest Tightness Respiratory: Denies: Cough, Shortness of Breath Gastrointestinal: Denies: Hematemesis, Vomiting Genitourinary: Denies: Hematuria Skin: Denies: Jaundice - Physical Exam Vital Signs Temp Pulse Resp BP 98.8 F 69 18 167/88 H 06/13/18 08:04 06/13/18 08:04 06/13/18 08:04 06/13/18 08:04 General: Alert, Oriented x3, Cooperative, No apparent distress HEENT: Atraumatic Oral: Moist Mucosa Neck: Supple Lungs: Normal air movement Abdomen: Non Tender Extremities: No cyanosis Skin: Ulcer/ Wound Wound Measurements and Assessment WC - Nurse 1 - General Ulcer Measurement Start: 06/07/18 10:38 Freq: Status: Active Protocol: Activity Type Activity Date Activity User E-Sign Co-Sign Detail Recorded Client Recorded Date Recorded By Document 06/13/18 08:04 [facility] [id number] 06/13/18 08:07 [facility] 06/13/18 08:04 Wound Center Nurse 1 [Ulcer Assessment] #1 left buttocks -Combined with other wound No -Current Size (cm) - Length 0.1 -Current Size (cm) - Width 0.1 -Current Size (cm) - Depth 0.1 -Total Square Cm 0.01 -Photo Taken No -Epithelialization Large 67-100% -Texture (Natalie-wound Skin Appearance) Scarring -Moisture (Natalie-wound Skin Appearance Dry/Scaly ) -Color (Natalie-wound Skin Appearance) Erythema -Temperature (Natalie-wound Skin No Abnormality Appearance) (Pt Warm) -Tenderness on Palpation (Natalie-wound No Skin Appearance) -Ulcer Cleansing Rinsed/ Irrigated with Saline -Foul Odor after Cleansing No -Anesthetic Used 4% Lidocaine Solution - Nurse 2 - General Ulcer CM Notes Start: 06/07/18 10:38 Freq: Status: Active Protocol: Activity Type Activity Date Activity User E-Sign Co-Sign Detail Recorded Client Recorded Date Recorded By Document 06/13/18 08:24 [id number] 06/13/18 08:25 06/13/18 08:24 Wound Center Nurse 2 [Procedure/Treatment] -Time 08:24 -Correct Patient Yes -Correct Side, Site, Position Yes -Correct Procedure Yes -Procedure Performed Yes -Type of Procedure Debridement -Clinical Debridement Subcutaneous -Post Debridement Size (cm) - Length 0.1 -Post Debridement Size (cm) - Width 0.1 -Post Debridement Size (cm) - Depth 0.1 -Total Square Cm 0.01 -Wound/Ulcer Outcome Not Healed -Ulcer Cleansing Rinsed/ Irrigated with Saline -Foul Odor after Cleansing No -Bioengineered Tissue No -Bleeding Controlled with NA -Treatment Response Procedure Tolerated Well [See Physician Procedure note for Specifics] Pain Scale: 0-10 Numeric [Pain] -Is Patient Pain Free? Yes Musculoskeletal: No Muscle Wasting Neurological: Cranial nerves II-XII grossly intact Psych/Mental Status: Normal Affect Debridement Note Post-Debridement Measurements/Treatment - Nurse 2 - General Ulcer CM Notes Start: 06/07/18 10:38 Freq: Status: Active Protocol: Activity Type Activity Date Activity User E-Sign Co-Sign Detail Recorded Client Recorded Date Recorded By Document 06/07/18 11:08 [id number] 06/07/18 11:10 Document 06/13/18 08:24 [id number] 06/13/18 08:25 06/07/18 06/13/18 11:08 08:24 Wound Center Nurse 2 #1 left buttocks -Time 11:10 08:24 -Correct Patient Yes Yes -Correct Side, Site, Position Yes Yes -Correct Procedure Yes Yes -Procedure Performed Yes Yes -Type of Procedure Debridement Debridement -Clinical Debridement Subcutaneous Subcutaneous -Post Debridement Size (cm) - Length 0.3 0.1 -Post Debridement Size (cm) - Width 0.4 0.1 -Post Debridement Size (cm) - Depth 0.2 0.1 -Total Square Cm 0.12 0.01 -Wound/Ulcer Outcome Not Healed Not Healed -Ulcer Cleansing Rinsed/ Rinsed/ Irrigated with Irrigated with Saline Saline -Foul Odor after Cleansing No No -Bioengineered Tissue No No -Bleeding Controlled with NA NA -Treatment Response Procedure Procedure Tolerated Well Tolerated Well Pain Scale: 0-10 Numeric Is Patient Pain Free? Yes Yes Wound debrided: Left Buttock Wound Grade/Stage: Stage II Type of Debridement: Excisional debridement Anesthesia Used: 4% Lidocaine Solution Depth: Down to and including healthy tissue, in the subcutaneous layer Percentage of wound debrided: 100 Instrument Used: 3mm curette Tissue Removed: Devitalized tissue Severity: Fat Layer Exposed Amount of bleeding with debridement: Mild Bleeding Controlled with: Pressure Patient tolerated procedure well Assessment/Plan Active Problems Decubitus ulcer of left buttock, stage 2 (Acute) GERD (gastroesophageal reflux disease) (Acute) Urine incontinence (Acute) Assessment: Left Buttocks Decubitus ulcer due to prolonged sitting. Sever GERD. Urinary Incontinence. Plan: Debridement done as documeneted above, procedure was well tolerated. Continue aquacel ag with adaptic over top. Continue barrier dressing and powder for moisture control. Gel Cushions for sitting and low loss air mattress. Increased protein intake recommended. Follow up in 1 week. Advised to call with any questions or concerns.
[2018-06-19 12:38] VITALS: BP 145/71; PULSE 62; RESP 16; TEMP 36.4; BMI 29.5
--- NOTE | 2018-06-19 13:04 | PCM.WC.PN ---
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 History of Wound: Transfer of care from Kim Diaz NP. Ms Price is a 77yo with PMH significant for sever GERD and Urinary Incontinence who has been managed for Left buttock pressure ulcer. Her ulcers are said to be a result of prolonged sitting due to worsening GERD on laying down. So far, she has had significant progress on current wound care regimen and denies any new complaints at this time. She denies chils, fever, nausea, vomitting or any change in her bowel habit. Progress of Wound: Improving. - Physical Exam Vital Signs Temp Pulse Resp BP 97.5 F L 62 16 145/71 H 06/19/18 12:38 06/19/18 12:38 06/19/18 12:38 06/19/18 12:38 General: Alert, Oriented x3, Cooperative, No apparent distress HEENT: Atraumatic Oral: Moist Mucosa Neck: Supple Lungs: Normal air movement Abdomen: Non Tender Extremities: No cyanosis Skin: Ulcer/ Wound Wound Measurements and Assessment - Nurse 1 - General Ulcer Measurement Start: 06/07/18 10:38 Freq: Status: Active Protocol: Activity Type Activity Date Activity User E-Sign Co-Sign Detail Recorded Client Recorded Date Recorded By Document 06/19/18 12:38 [id number] 06/19/18 12:49 06/19/18 12:38 Wound Center Nurse 1 [Ulcer Assessment] #1 left buttocks -Combined with other wound No -Current Size (cm) - Length 0.1 -Current Size (cm) - Width 0.1 -Current Size (cm) - Depth 0.1 -Total Square Cm 0.01 -Photo Taken No -Epithelialization Large 67-100% [Edema Assessment] -Lower Limb Edema Present NA WC - Nurse 2 - General Ulcer CM Notes Start: 06/07/18 10:38 Freq: Status: Active Protocol: Activity Type Activity Date Activity User E-Sign Co-Sign Detail Recorded Client Recorded Date Recorded By Document 06/19/18 12:59 MW [id number] 06/19/18 13:02 MW 06/19/18 12:59 Wound Center Nurse 2 [Procedure/Treatment] #1 left buttocks -Time 12:59 -Correct Patient Yes -Correct Side, Site, Position Yes -Correct Procedure No -Procedure Performed No -Post Debridement Size (cm) - Length 0.1 -Post Debridement Size (cm) - Width 0.1 -Post Debridement Size (cm) - Depth 0.1 -Total Square Cm 0.01 -Wound/Ulcer Outcome Not Healed -Ulcer Cleansing Not Cleansed -Foul Odor after Cleansing No -Bioengineered Tissue No -Bleeding Controlled with NA -Treatment Response Procedure Tolerated Well [See Physician Procedure note for Specifics] Pain Scale: 0-10 Numeric [Pain] -Is Patient Pain Free? Yes Musculoskeletal: No Muscle Wasting Neurological: Cranial nerves II-XII grossly intact Psych/Mental Status: Normal Affect Debridement Note Post-Debridement Measurements/Treatment WC - Nurse 2 - General Ulcer CM Notes Start: 06/07/18 10:38 Freq: Status: Active Protocol: Activity Type Activity Date Activity User E-Sign Co-Sign Detail Recorded Client Recorded Date Recorded By Document 06/07/18 11:08 [id number] 06/07/18 11:10 JS Document 06/13/18 08:24 [id number] 06/13/18 08:25 Document 06/19/18 12:59 [id number] 06/19/18 13:02 MW 06/07/18 06/13/18 08 11:08 08:24 12:59 Wound Center Nurse 2 #1 left buttocks -Time 11:10 08:24 12:59 -Correct Patient Yes Yes Yes -Correct Side, Site, Position Yes Yes Yes -Correct Procedure Yes Yes No -Procedure Performed Yes Yes No -Type of Procedure Debridement Debridement -Clinical Debridement Subcutaneous Subcutaneous -Post Debridement Size (cm) - Length 0.3 0.1 0.1 -Post Debridement Size (cm) - Width 0.4 0.1 0.1 -Post Debridement Size (cm) - Depth 0.2 0.1 0.1 -Total Square Cm 0.12 0.01 0.01 -Wound/Ulcer Outcome Not Healed Not Healed Not Healed -Ulcer Cleansing Rinsed/ Rinsed/ Not Cleansed Irrigated with Irrigated with Saline Saline -Foul Odor after Cleansing No No No -Bioengineered Tissue No No No -Bleeding Controlled with NA NA NA -Treatment Response Procedure Procedure Procedure Tolerated Well Tolerated Well Tolerated Well Pain Scale: 0-10 Numeric Is Patient Pain Free? Yes Yes Yes No debridement was completed today Assessment/Plan Active Problems Decubitus ulcer of left buttock, stage 2 (Acute) GERD (gastroesophageal reflux disease) (Acute) Urine incontinence (Acute) Assessment: Left Buttocks Decubitus ulcer due to prolonged sitting. Severe GERD. Urinary Incontinence. Plan: Good improvement in the past week and wound has essentially healed. Mild periwound erythema/Stage 1 pressure ulcer. Continue Moistened aquacel ag to small open area left with adpatic over top. Continue pressure dressing. Zince oxide to peiwound area/ Stage I pressure ulcer areas. Gel Cushions for sitting and low loss air mattress. Increased protein intake recommended. Follow up in 1 week. Advised to call with any questions or concerns.
--- NOTE | 2018-06-19 13:08 | PN.PCM_ITS ---
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 History of Wound: Transfer of care from Kim Diaz NP. Ms Price is a 77yo with PMH significant for sever GERD and Urinary Incontinence who has been managed for Left buttock pressure ulcer. Her ulcers are said to be a result of prolonged sitting due to worsening GERD on laying down. So far, she has had significant progress on current wound care regimen and denies any new complaints at this time. She denies chils, fever, nausea, vomitting or any change in her bowel habit. Progress of Wound: Improving. - Physical Exam Vital Signs Temp Pulse Resp BP 97.5 F L 62 16 145/71 H 06/19/18 12:38 06/19/18 12:38 06/19/18 12:38 06/19/18 12:38 General: Alert, Oriented x3, Cooperative, No apparent distress HEENT: Atraumatic Oral: Moist Mucosa Neck: Supple Lungs: Normal air movement Abdomen: Non Tender Extremities: No cyanosis Skin: Ulcer/ Wound Wound Measurements and Assessment - Nurse 1 - General Ulcer Measurement Start: 06/07/18 10:38 Freq: Status: Active Protocol: Activity Type Activity Date Activity User E-Sign Co-Sign Detail Recorded Client Recorded Date Recorded By Document 06/19/18 12:38 [id number] 06/19/18 12:49 06/19/18 12:38 Wound Center Nurse 1 [Ulcer Assessment] #1 left buttocks -Combined with other wound No -Current Size (cm) - Length 0.1 -Current Size (cm) - Width 0.1 -Current Size (cm) - Depth 0.1 -Total Square Cm 0.01 -Photo Taken No -Epithelialization Large 67-100% [Edema Assessment] -Lower Limb Edema Present NA WC - Nurse 2 - General Ulcer CM Notes Start: 06/07/18 10:38 Freq: Status: Active Protocol: Activity Type Activity Date Activity User E-Sign Co-Sign Detail Recorded Client Recorded Date Recorded By Document 06/19/18 12:59 MW [id number] 06/19/18 13:02 MW 06/19/18 12:59 Wound Center Nurse 2 [Procedure/Treatment] #1 left buttocks -Time 12:59 -Correct Patient Yes -Correct Side, Site, Position Yes -Correct Procedure No -Procedure Performed No -Post Debridement Size (cm) - Length 0.1 -Post Debridement Size (cm) - Width 0.1 -Post Debridement Size (cm) - Depth 0.1 -Total Square Cm 0.01 -Wound/Ulcer Outcome Not Healed -Ulcer Cleansing Not Cleansed -Foul Odor after Cleansing No -Bioengineered Tissue No -Bleeding Controlled with NA -Treatment Response Procedure Tolerated Well [See Physician Procedure note for Specifics] Pain Scale: 0-10 Numeric [Pain] -Is Patient Pain Free? Yes Musculoskeletal: No Muscle Wasting Neurological: Cranial nerves II-XII grossly intact Psych/Mental Status: Normal Affect Debridement Note Post-Debridement Measurements/Treatment WC - Nurse 2 - General Ulcer CM Notes Start: 06/07/18 10:38 Freq: Status: Active Protocol: Activity Type Activity Date Activity User E-Sign Co-Sign Detail Recorded Client Recorded Date Recorded By Document 06/07/18 11:08 [id number] 06/07/18 11:10 JS Document 06/13/18 08:24 [id number] 06/13/18 08:25 Document 06/19/18 12:59 [id number] 06/19/18 13:02 MW 06/07/18 06/13/18 08 11:08 08:24 12:59 Wound Center Nurse 2 #1 left buttocks -Time 11:10 08:24 12:59 -Correct Patient Yes Yes Yes -Correct Side, Site, Position Yes Yes Yes -Correct Procedure Yes Yes No -Procedure Performed Yes Yes No -Type of Procedure Debridement Debridement -Clinical Debridement Subcutaneous Subcutaneous -Post Debridement Size (cm) - Length 0.3 0.1 0.1 -Post Debridement Size (cm) - Width 0.4 0.1 0.1 -Post Debridement Size (cm) - Depth 0.2 0.1 0.1 -Total Square Cm 0.12 0.01 0.01 -Wound/Ulcer Outcome Not Healed Not Healed Not Healed -Ulcer Cleansing Rinsed/ Rinsed/ Not Cleansed Irrigated with Irrigated with Saline Saline -Foul Odor after Cleansing No No No -Bioengineered Tissue No No No -Bleeding Controlled with NA NA NA -Treatment Response Procedure Procedure Procedure Tolerated Well Tolerated Well Tolerated Well Pain Scale: 0-10 Numeric Is Patient Pain Free? Yes Yes Yes No debridement was completed today Assessment/Plan Active Problems Decubitus ulcer of left buttock, stage 2 (Acute) GERD (gastroesophageal reflux disease) (Acute) Urine incontinence (Acute) Assessment: Left Buttocks Decubitus ulcer due to prolonged sitting. Severe GERD. Urinary Incontinence. Plan: Good improvement in the past week and wound has essentially healed. Mild periwound erythema/Stage 1 pressure ulcer. Continue Moistened aquacel ag to small open area left with adpatic over top. Continue pressure dressing. Zince oxide to peiwound area/ Stage I pressure ulcer areas. Gel Cushions for sitting and low loss air mattress. Increased protein intake recommended. Follow up in 1 week. Advised to call with any questions or concerns.
[2018-06-27 08:11] VITALS: BP 153/53; PULSE 66; RESP 18; TEMP 37; BMI 29.5
--- NOTE | 2018-06-27 08:29 | PCM.WC.PN ---
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 History of Wound: Transfer of care from Kim Diaz NP. Ms Price is a 77yo with PMH significant for sever GERD and Urinary Incontinence who has been managed for Left buttock pressure ulcer. Her ulcers are said to be a result of prolonged sitting due to worsening GERD on laying down. So far, she has had significant progress on current wound care regimen and denies any new complaints at this time. She denies chils, fever, nausea, vomitting or any change in her bowel habit. Progress of Wound: Healed. - Physical Exam Vital Signs Temp Pulse Resp BP 98.6 F 66 18 153/53 H 06/27/18 08:11 06/27/18 08:11 06/27/18 08:11 06/27/18 08:11 General: Alert, Oriented x3, Cooperative, No apparent distress HEENT: Atraumatic Oral: Moist Mucosa Neck: Supple Lungs: Normal air movement Abdomen: Non Tender Extremities: No cyanosis Wound Measurements and Assessment WC - Nurse 1 - General Ulcer Measurement Start: 06/07/18 10:38 Freq: Status: Active Protocol: Activity Type Activity Date Activity User E-Sign Co-Sign Detail Recorded Client Recorded Date Recorded By Document 06/27/18 08:11 [id number] 06/27/18 08:19 DL 06/27/18 08:11 Wound Center Nurse 1 [Ulcer Assessment] #1 left buttocks -Current Size (cm) - Length 0 -Current Size (cm) - Width 0 -Current Size (cm) - Depth 0 -Total Square Cm 0 -Photo Taken Yes -Exudate Amt None Present (0 %) -Wound Margin Flat & Intact -Granulation Amt Large (67-100%) -Granulation Quality [place] -Necrosis Amt None Present (0 %) -Structure Exposed N/A -Texture (Natalie-wound Skin Appearance) Scarring -Moisture (Natalie-wound Skin Appearance Weeping ) -Color (Natalie-wound Skin Appearance) No Abnormality -Temperature (Natalie-wound Skin No Abnormality Appearance) (Pt Warm) -Ulcer Cleansing Rinsed/ Irrigated with Saline -Foul Odor after Cleansing No WC - Nurse 2 - General Ulcer CM Notes Start: 06/07/18 10:38 Freq: Status: Active Protocol: Activity Type Activity Date Activity User E-Sign Co-Sign Detail Recorded Client Recorded Date Recorded By Document 06/27/18 08:25 MW [id number] 06/27/18 08:26 MW 06/27/18 08:25 Wound Center Nurse 2 [Procedure/Treatment] -Time 08:25 -Correct Patient Yes -Correct Side, Site, Position Yes -Correct Procedure No -Procedure Performed No -Post Debridement Size (cm) - Length 0 -Post Debridement Size (cm) - Width 0 -Post Debridement Size (cm) - Depth 0 -Total Square Cm 0 -Wound/Ulcer Outcome Healed- Epithelialized -Ulcer Cleansing Not Cleansed -Foul Odor after Cleansing No -Bleeding Controlled with NA -Treatment Response Procedure Tolerated Well [See Physician Procedure note for Specifics] Pain Scale: 0-10 Numeric [Pain] -Is Patient Pain Free? Yes Musculoskeletal: No Muscle Wasting Neurological: Cranial nerves II-XII grossly intact Psych/Mental Status: Normal Affect Debridement Note Post-Debridement Measurements/Treatment WC - Nurse 2 - General Ulcer CM Notes Start: 06/07/18 10:38 Freq: Status: Active Protocol: Activity Type Activity Date Activity User E-Sign Co-Sign Detail Recorded Client Recorded Date Recorded By Document 06/07/18 11:08 JS [id number] 06/07/18 11:10 JS Document 06/13/18 08:24 JS [id number] 06/13/18 08:25 JS Document 06/19/18 12:59 MW [id number] 06/19/18 13:02 MW Document 06/27/18 08:25 MW [id number] 06/27/18 08:26 MW 06/07/18 06/13/18 06/19/18 11:08 08:24 12:59 Wound Center Nurse 2 #1 left buttocks -Time 11:10 08:24 12:59 -Correct Patient Yes Yes Yes -Correct Side, Site, Position Yes Yes Yes -Correct Procedure Yes Yes No -Procedure Performed Yes Yes No -Type of Procedure Debridement Debridement -Clinical Debridement Subcutaneous Subcutaneous -Post Debridement Size (cm) - Length 0.3 0.1 0.1 -Post Debridement Size (cm) - Width 0.4 0.1 0.1 -Post Debridement Size (cm) - Depth 0.2 0.1 0.1 -Total Square Cm 0.12 0.01 0.01 -Wound/Ulcer Outcome Not Healed Not Healed Not Healed -Ulcer Cleansing Rinsed/ Rinsed/ Not Cleansed Irrigated with Irrigated with Saline Saline -Foul Odor after Cleansing No No No -Bioengineered Tissue No No No -Bleeding Controlled with NA NA NA -Treatment Response Procedure Procedure Procedure Tolerated Well Tolerated Well Tolerated Well Pain Scale: 0-10 Numeric Is Patient Pain Free? Yes Yes Yes 06/27/18 08:25 Wound Center Nurse 2 #1 left buttocks -Time 08:25 -Correct Patient Yes -Correct Side, Site, Position Yes -Correct Procedure No -Procedure Performed No -Type of Procedure -Clinical Debridement -Post Debridement Size (cm) - Length 0 -Post Debridement Size (cm) - Width 0 -Post Debridement Size (cm) - Depth 0 -Total Square Cm 0 -Wound/Ulcer Outcome Healed- Epithelialized -Ulcer Cleansing Not Cleansed -Foul Odor after Cleansing No -Bioengineered Tissue -Bleeding Controlled with NA -Treatment Response Procedure Tolerated Well Pain Scale: 0-10 Numeric Is Patient Pain Free? Yes No debridement was completed today Assessment/Plan Active Problems Decubitus ulcer of left buttock, stage 2 (Acute) GERD (gastroesophageal reflux disease) (Acute) Urine incontinence (Acute) Assessment: Left Buttocks Decubitus ulcer due to prolonged sitting. Severe GERD. Urinary Incontinence. Plan: Wound has healed. Continue Zinc Oxide cream/ointment with toiletting. Clean with moist wipes. Gel Cushions for sitting and low loss air mattress. Increased protein intake recommended. Discharged from the wound center. Advised to call with any questions or concerns.
--- NOTE | 2018-06-27 08:33 | PN.PCM_ITS ---
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 History of Wound: Transfer of care from Kim Diaz NP. Ms Price is a 77yo with PMH significant for sever GERD and Urinary Incontinence who has been managed for Left buttock pressure ulcer. Her ulcers are said to be a result of prolonged sitting due to worsening GERD on laying down. So far, she has had significant progress on current wound care regimen and denies any new complaints at this time. She denies chils, fever, nausea, vomitting or any change in her bowel habit. Progress of Wound: Healed. - Physical Exam Vital Signs Temp Pulse Resp BP 98.6 F 66 18 153/53 H 06/27/18 08:11 06/27/18 08:11 06/27/18 08:11 06/27/18 08:11 General: Alert, Oriented x3, Cooperative, No apparent distress HEENT: Atraumatic Oral: Moist Mucosa Neck: Supple Lungs: Normal air movement Abdomen: Non Tender Extremities: No cyanosis Wound Measurements and Assessment WC - Nurse 1 - General Ulcer Measurement Start: 06/07/18 10:38 Freq: Status: Active Protocol: Activity Type Activity Date Activity User E-Sign Co-Sign Detail Recorded Client Recorded Date Recorded By Document 06/27/18 08:11 [id number] 06/27/18 08:19 DL 06/27/18 08:11 Wound Center Nurse 1 [Ulcer Assessment] #1 left buttocks -Current Size (cm) - Length 0 -Current Size (cm) - Width 0 -Current Size (cm) - Depth 0 -Total Square Cm 0 -Photo Taken Yes -Exudate Amt None Present (0 %) -Wound Margin Flat & Intact -Granulation Amt Large (67-100%) -Granulation Quality [place] -Necrosis Amt None Present (0 %) -Structure Exposed N/A -Texture (Natalie-wound Skin Appearance) Scarring -Moisture (Natalie-wound Skin Appearance Weeping ) -Color (Natalie-wound Skin Appearance) No Abnormality -Temperature (Natalie-wound Skin No Abnormality Appearance) (Pt Warm) -Ulcer Cleansing Rinsed/ Irrigated with Saline -Foul Odor after Cleansing No WC - Nurse 2 - General Ulcer CM Notes Start: 06/07/18 10:38 Freq: Status: Active Protocol: Activity Type Activity Date Activity User E-Sign Co-Sign Detail Recorded Client Recorded Date Recorded By Document 06/27/18 08:25 MW [id number] 06/27/18 08:26 MW 06/27/18 08:25 Wound Center Nurse 2 [Procedure/Treatment] -Time 08:25 -Correct Patient Yes -Correct Side, Site, Position Yes -Correct Procedure No -Procedure Performed No -Post Debridement Size (cm) - Length 0 -Post Debridement Size (cm) - Width 0 -Post Debridement Size (cm) - Depth 0 -Total Square Cm 0 -Wound/Ulcer Outcome Healed- Epithelialized -Ulcer Cleansing Not Cleansed -Foul Odor after Cleansing No -Bleeding Controlled with NA -Treatment Response Procedure Tolerated Well [See Physician Procedure note for Specifics] Pain Scale: 0-10 Numeric [Pain] -Is Patient Pain Free? Yes Musculoskeletal: No Muscle Wasting Neurological: Cranial nerves II-XII grossly intact Psych/Mental Status: Normal Affect Debridement Note Post-Debridement Measurements/Treatment WC - Nurse 2 - General Ulcer CM Notes Start: 06/07/18 10:38 Freq: Status: Active Protocol: Activity Type Activity Date Activity User E-Sign Co-Sign Detail Recorded Client Recorded Date Recorded By Document 06/07/18 11:08 JS [id number] 06/07/18 11:10 JS Document 06/13/18 08:24 JS [id number] 06/13/18 08:25 JS Document 06/19/18 12:59 MW [id number] 06/19/18 13:02 MW Document 06/27/18 08:25 MW [id number] 06/27/18 08:26 MW 06/07/18 06/13/18 06/19/18 11:08 08:24 12:59 Wound Center Nurse 2 #1 left buttocks -Time 11:10 08:24 12:59 -Correct Patient Yes Yes Yes -Correct Side, Site, Position Yes Yes Yes -Correct Procedure Yes Yes No -Procedure Performed Yes Yes No -Type of Procedure Debridement Debridement -Clinical Debridement Subcutaneous Subcutaneous -Post Debridement Size (cm) - Length 0.3 0.1 0.1 -Post Debridement Size (cm) - Width 0.4 0.1 0.1 -Post Debridement Size (cm) - Depth 0.2 0.1 0.1 -Total Square Cm 0.12 0.01 0.01 -Wound/Ulcer Outcome Not Healed Not Healed Not Healed -Ulcer Cleansing Rinsed/ Rinsed/ Not Cleansed Irrigated with Irrigated with Saline Saline -Foul Odor after Cleansing No No No -Bioengineered Tissue No No No -Bleeding Controlled with NA NA NA -Treatment Response Procedure Procedure Procedure Tolerated Well Tolerated Well Tolerated Well Pain Scale: 0-10 Numeric Is Patient Pain Free? Yes Yes Yes 06/27/18 08:25 Wound Center Nurse 2 #1 left buttocks -Time 08:25 -Correct Patient Yes -Correct Side, Site, Position Yes -Correct Procedure No -Procedure Performed No -Type of Procedure -Clinical Debridement -Post Debridement Size (cm) - Length 0 -Post Debridement Size (cm) - Width 0 -Post Debridement Size (cm) - Depth 0 -Total Square Cm 0 -Wound/Ulcer Outcome Healed- Epithelialized -Ulcer Cleansing Not Cleansed -Foul Odor after Cleansing No -Bioengineered Tissue -Bleeding Controlled with NA -Treatment Response Procedure Tolerated Well Pain Scale: 0-10 Numeric Is Patient Pain Free? Yes No debridement was completed today Assessment/Plan Active Problems Decubitus ulcer of left buttock, stage 2 (Acute) GERD (gastroesophageal reflux disease) (Acute) Urine incontinence (Acute) Assessment: Left Buttocks Decubitus ulcer due to prolonged sitting. Severe GERD. Urinary Incontinence. Plan: Wound has healed. Continue Zinc Oxide cream/ointment with toiletting. Clean with moist wipes. Gel Cushions for sitting and low loss air mattress. Increased protein intake recommended. Discharged from the wound center. Advised to call with any questions or concerns.
== END 2018-06-28 23:59 ==
LOC: WC 08:00
PROVIDERS: Family Provider Family Medicine; PCP Family Medicine; Visit Provider Internal Medicine
DX: L89.322 Pressure ulcer of left buttock, stage 2 (principal); R32 Unspecified urinary incontinence; K21.9 Gastro-esophageal reflux disease without esophagitis
CPT/HCPCS: 11042; 99212; G0463

== ENCOUNTER → 2018-07-15 13:18 | Outpatient (CLI) | payer MEDICARE, OTHER, SELFPAY ==
--- NOTE | 2018-07-15 13:40 | MRI_ITS ---
STUDY: MRI BRAIN WITHOUT CONTRAST REASON FOR EXAM: Female, 77 years old. Difficulty with word retrieval TECHNIQUE: Standardized multiplanar fat and water weighted pulse sequences were obtained. COMPARISON: CT of the brain on August 25, 2016. FINDINGS: Moderate central atrophy and mild periventricular white matter ischemic changes without evidence for acute infarct. There is disproportionate dilatation of the ventricles to cortical sulci raising question of communicating hydrocephalus or NPH. Normal bilateral basal ganglia. Normal thalami. There is no extra-axial fluid accumulation. Normal flow voids within the major intracranial circulation suggesting patency by spin echo criteria. Normal sella turcica, pituitary gland, infundibular stalk, optic chiasm and hypothalamus. Normal tectal plate and pineal gland. Normal midbrain, phillip and medulla. Normal cerebellum. Normal basal cisterns. Normal bilateral temporal bones. Normal bilateral internal auditory canals. Postsurgical changes of the orbits. Minor mucosal thickening of the ethmoid air cells.. Normal calvarium and skull base. Normal visualized soft tissue structures. Normal visualized upper cervical spine. MRI/Brain without Contrast IMPRESSION: Atrophy and minor periventricular white matter ischemic changes without evidence for acute infarct. Finding which also may be consistent with normal pressure hydrocephalus however clinical correlation is recommended. Electronically Signed: Sharif Bhatt MD at 16:17 EDT , Service support ,
== END ==
PROVIDERS: Family Provider Family Medicine; PCP Family Medicine; Visit Provider Family Medicine
DX: R47.89 Other speech disturbances (principal)
CPT/HCPCS: 70551

== ENCOUNTER → 2018-08-14 11:25 | Outpatient (CLI) | payer MEDICARE, OTHER, SELFPAY ==
--- NOTE | 2018-08-14 11:30 | RAD_ITS ---
STUDY: X-RAY - RIGHT KNEE REASON FOR EXAM: Female, 77 years old. Right knee pain after fall TECHNIQUE: 3 view(s) of the knee. Weight-bearing COMPARISON: None. FINDINGS: Normal visualized distal femur. Normal visualized proximal tibia and fibula. Normal proximal tibiofibular articulation. Normal medial femorotibial compartment. Normal lateral femorotibial compartment. Normal patellofemoral articulation. There is no demonstrated joint effusion. No significant joint space height loss. The soft tissue structures are unremarkable. RAD/Knee 1 or 2 Views IMPRESSION: No acute findings Electronically Signed: Manuel Padilla DO at 11:19 EDT Tel , Service support ,
--- NOTE | 2018-08-14 11:30 | RAD_ITS ---
STUDY: X-RAY - LUMBAR SPINE REASON FOR EXAM: Female, 77 years old. Back pain after fall TECHNIQUE: 4 view(s) of the lumbar spine were obtained. COMPARISON: None FINDINGS: There is an exaggerated lumbar lordosis. There is no substantial scoliosis. There is multilevel endplate spondylosis of the lumbar vertebrae. There is multi-level degenerative disc disease with multi-level disc space narrowing. There is no demonstrated fracture. The soft tissue structures are unremarkable. RAD/L/S Spine Min 4 Views IMPRESSION: Severely exaggerated lumbar lordosis. No evidence of acute findings Electronically Signed: Manuel Padilla DO at 11:51 EDT Tel , Service support ,
--- NOTE | 2018-08-14 11:30 | RAD_ITS ---
STUDY: X-RAY - THORACIC SPINE REASON FOR EXAM: Female, 77 years old. Back pain after fall TECHNIQUE: 2 view(s) of the thoracic spine were obtained. COMPARISON: None. FINDINGS: There is an increase in the normal thoracic kyphosis. There is no substantial scoliosis. There is multilevel endplate spondylosis of the thoracic vertebrae. There is multilevel disc space narrowing of the thoracic spine. The soft tissue structures are unremarkable. RAD/Thoracic Spine 2 Views IMPRESSION: No acute findings Electronically Signed: Manuel Padilla DO at 11:51 EDT Tel , Service support ,
== END ==
PROVIDERS: Family Provider Family Medicine; PCP Family Medicine; Referring Provider Family Medicine; Visit Provider Family Medicine
DX: M54.9 Dorsalgia, unspecified (principal); M25.561 Pain in right knee; W19.XXXA Unspecified fall, initial encounter
CPT/HCPCS: 72070; 72110; 73560

== ENCOUNTER 2018-08-22 11:00 | Outpatient (RCR) | payer MEDICARE, OTHER, SELFPAY ==
[2018-08-08 10:39] VITALS: BP 143/45; PULSE 62; RESP 16; TEMP 36.4; BMI 25.6
--- NOTE | 2018-08-08 15:55 | PCM.WC.HP ---
(1) Decubitus ulcer of left buttock, stage 2 Status: Acute Current Visit: No Code(s): L89.322 - Pressure ulcer of left buttock, stage 2 History of Present Illness Chief Complaint: Decubitus ulcer of buttock. History of Wound: Ms Price is a 77yo with PMH significant for severe GERD and Urinary Incontinence who has been managed for Left buttock said to be a result of prolonged sitting due to worsening GERD on laying down. She was discharged from the wound center over a month ago however now represents with a new ulcer. Has had at home wound care nurse, over with minimal improvement. She feels well otherwise denies chills, fever or any change in her bowel habit. Past Medical History Allergies/Adverse Reactions: Allergies nitrofurantoin macrocrystalline [From Macrodantin] Allergy (Verified 08/25/16 15:17) Unknown phenazopyridine HCl [From Azo] Allergy (Verified 08/25/16 15:17) Unknown Sulfa (Sulfonamide Antibiotics) Allergy (Verified 08/25/16 15:17) Swelling bacitracin [From Neosporin ([id number])] Adverse Reaction (Verified 08/25/16 15:17) Rash neomycin [From Neosporin ([id number])] Adverse Reaction (Verified 08/25/16 15:17) Rash polymyxin B [From Neosporin ([id number])] Adverse Reaction (Verified 08/25/16 15:17) Rash Home Medications: Ambulatory Orders Medication Instructions Recorded Atenolol [Tenormin (beta Chato)] 25 mg PO DAILY 08/25/16 Multivit-Min/FA/Lycopen/Lutein 1 each PO DAILY 08/25/16 [Adults 50+ Multivitamin Tablet] Oxybutynin Chloride [Ditropan Xl] 10 mg PO DAILY 08/25/16 Simvastatin [Zocor] 10 mg PO QHS 08/25/16 Escitalopram Oxalate [Lexapro] 10 mg PO DAILY 08/08/18 Fexofenadine HCl 60 mg PO BID 08/08/18 Furosemide [Lasix] 20 mg PO BIDLX 08/08/18 Potassium Chloride [Klor-Con] 20 meq PO DAILY 08/08/18 Smoking Status: Never smoker Review of Systems Constitutional: Denies: Anorexia, Chills, Fever Eyes: Denies: Blurred vision, Pain, Redness HEENT: Denies: Difficulty Hearing Cardiovascular: Denies: Chest Pain, Chest Tightness Respiratory: Denies: Cough, Hemoptysis Gastrointestinal: Denies: Abdominal Pain, Hematemesis, Vomiting Skin: Denies: Jaundice - Physical Exam Vital Signs Temp Pulse Resp BP 97.5 F L 62 16 143/45 H 08/08/18 10:39 08/08/18 10:39 08/08/18 10:39 08/08/18 10:39 General: Alert, Oriented x3, Cooperative, No apparent distress HEENT: Atraumatic Oral: Moist Mucosa Neck: Supple Lungs: Normal air movement Abdomen: Soft, Non Tender Extremities: No cyanosis Skin: Ulcer/ Wound Wound Measurements and Assessment WC - Nurse 1 - General Ulcer Measurement Start: 08/08/18 10:38 Freq: Status: Active Protocol: Activity Type Activity Date Activity User E-Sign Co-Sign Detail Recorded Client Recorded Date Recorded By Document 08/08/18 10:39 [facility] [id number] 08/08/18 10:53 [facility] 08/08/18 10:39 Wound Center Nurse 1 [Ulcer Assessment] #2- LT BUTTOCKS -Combined with other wound No -Current Size (cm) - Length 0.1 -Current Size (cm) - Width 0.1 -Current Size (cm) - Depth 0.1 -Total Square Cm 0.01 -Date of Last Picture (Recall this 08/08/18 field) -Photo Taken Yes -Tunneling No -Undermining/Tunneling No -Circular Undermining No -Structure Exposed N/A -Texture (Natalie-wound Skin Appearance) Scarring Rash -Moisture (Natalie-wound Skin Appearance Dry/Scaly ) -Color (Natalie-wound Skin Appearance) Assessed -Temperature (Natalie-wound Skin No Abnormality Appearance) (Pt Warm) -Tenderness on Palpation (Natalie-wound No Skin Appearance) -Ulcer Cleansing Rinsed/ Irrigated with Saline -Foul Odor after Cleansing No -Anesthetic Used 5% Lidocaine Gel WC - Nurse 2 - General Ulcer CM Notes Start: 08/08/18 10:38 Freq: Status: Active Protocol: Activity Type Activity Date Activity User E-Sign Co-Sign Detail Recorded Client Recorded Date Recorded By Document 08/08/18 11:09 [id number] 08/08/18 11:14 MW 08/08/18 11:09 Wound Center Nurse 2 [Procedure/Treatment] -Time 11:09 -Correct Patient Yes -Correct Side, Site, Position Yes -Correct Procedure Yes -Procedure Performed Yes -Type of Procedure Debridement -Clinical Debridement Subcutaneous -Post Debridement Size (cm) - Length 1.0 -Post Debridement Size (cm) - Width 1.0 -Post Debridement Size (cm) - Depth 0.1 -Total Square Cm 1.00 -Wound/Ulcer Outcome Not Healed -Ulcer Cleansing Rinsed/ Irrigated with Saline -Foul Odor after Cleansing No -Bioengineered Tissue No -Bleeding Controlled with Pressure -Treatment Response Procedure Tolerated Well [See Physician Procedure note for Specifics] Pain Scale: 0-10 Numeric [Pain] -Is Patient Pain Free? Yes Musculoskeletal: No Muscle Wasting Neurological: Cranial nerves II-XII grossly intact Psych/Mental Status: Normal Affect Debridement Note Post-Debridement Measurements/Treatment WC - Nurse 2 - General Ulcer CM Notes Start: 08/08/18 10:38 Freq: Status: Active Protocol: Activity Type Activity Date Activity User E-Sign Co-Sign Detail Recorded Client Recorded Date Recorded By Document 08/08/18 11:09 MW [id number] 08/08/18 11:14 MW 08/08/18 11:09 Wound Center Nurse 2 #2- LT BUTTOCKS -Time 11:09 -Correct Patient Yes -Correct Side, Site, Position Yes -Correct Procedure Yes -Procedure Performed Yes -Type of Procedure Debridement -Clinical Debridement Subcutaneous -Post Debridement Size (cm) - Length 1.0 -Post Debridement Size (cm) - Width 1.0 -Post Debridement Size (cm) - Depth 0.1 -Total Square Cm 1.00 -Wound/Ulcer Outcome Not Healed -Ulcer Cleansing Rinsed/ Irrigated with Saline -Foul Odor after Cleansing No -Bioengineered Tissue No -Bleeding Controlled with Pressure -Treatment Response Procedure Tolerated Well Pain Scale: 0-10 Numeric Is Patient Pain Free? Yes Wound debrided: Left buttock Wound Grade/Stage: Stage II Type of Debridement: Excisional debridement Anesthesia Used: 4% Lidocaine Solution Depth: Down to and including healthy tissue, in the subcutaneous layer Percentage of wound debrided: 100 Instrument Used: 7mm curette, #15 blade, Forceps Tissue Removed: Devitalized tissue Severity: Fat Layer Exposed Amount of bleeding with debridement: Mild Bleeding Controlled with: Pressure Patient tolerated procedure well Assessment/Plan Assessment: Left Buttocks Decubitus ulcer due to prolonged sitting. Severe GERD. Urinary Incontinence. Plan: Returns with new decubitus left buttock ulcer. Home care with no significant improvement. Debridement done as documented above. Procedure was well-tolerated. Promogran with Adaptic over top. OptiForm over top. Change daily. Offload area regularly. Gel cushions for sitting and low loss air mattress. Optimal/increased protein intake recommended. Follow-up in 2 weeks. All her questions were answered and they were advised to call with any further questions or concerns. This note was generated with [employer] dictation software. It may contain incorrect words, spelling, and punctuation that were not noted in checking the note before signing.
--- NOTE | 2018-08-08 16:00 | HP.PCM_ITS ---
(1) Decubitus ulcer of left buttock, stage 2 Status: Acute Current Visit: No Code(s): L89.322 - Pressure ulcer of left buttock, stage 2 History of Present Illness Chief Complaint: Decubitus ulcer of buttock. History of Wound: Ms Price is a 77yo with PMH significant for severe GERD and Urinary Incontinence who has been managed for Left buttock said to be a result of prolonged sitting due to worsening GERD on laying down. She was discharged from the wound center over a month ago however now represents with a new ulcer. Has had at home wound care nurse, over with minimal improvement. She feels well otherwise denies chills, fever or any change in her bowel habit. Past Medical History Allergies/Adverse Reactions: Allergies nitrofurantoin macrocrystalline [From Macrodantin] Allergy (Verified 08/25/16 15:17) Unknown phenazopyridine HCl [From Azo] Allergy (Verified 08/25/16 15:17) Unknown Sulfa (Sulfonamide Antibiotics) Allergy (Verified 08/25/16 15:17) Swelling bacitracin [From Neosporin ([id number])] Adverse Reaction (Verified 08/25/16 15:17) Rash neomycin [From Neosporin ([id number])] Adverse Reaction (Verified 08/25/16 15:17) Rash polymyxin B [From Neosporin ([id number])] Adverse Reaction (Verified 08/25/16 15:17) Rash Home Medications: Ambulatory Orders Medication Instructions Recorded Atenolol [Tenormin (beta Chato)] 25 mg PO DAILY 08/25/16 Multivit-Min/FA/Lycopen/Lutein 1 each PO DAILY 08/25/16 [Adults 50+ Multivitamin Tablet] Oxybutynin Chloride [Ditropan Xl] 10 mg PO DAILY 08/25/16 Simvastatin [Zocor] 10 mg PO QHS 08/25/16 Escitalopram Oxalate [Lexapro] 10 mg PO DAILY 08/08/18 Fexofenadine HCl 60 mg PO BID 08/08/18 Furosemide [Lasix] 20 mg PO BIDLX 08/08/18 Potassium Chloride [Klor-Con] 20 meq PO DAILY 08/08/18 Smoking Status: Never smoker Review of Systems Constitutional: Denies: Anorexia, Chills, Fever Eyes: Denies: Blurred vision, Pain, Redness HEENT: Denies: Difficulty Hearing Cardiovascular: Denies: Chest Pain, Chest Tightness Respiratory: Denies: Cough, Hemoptysis Gastrointestinal: Denies: Abdominal Pain, Hematemesis, Vomiting Skin: Denies: Jaundice - Physical Exam Vital Signs Temp Pulse Resp BP 97.5 F L 62 16 143/45 H 08/08/18 10:39 08/08/18 10:39 08/08/18 10:39 08/08/18 10:39 General: Alert, Oriented x3, Cooperative, No apparent distress HEENT: Atraumatic Oral: Moist Mucosa Neck: Supple Lungs: Normal air movement Abdomen: Soft, Non Tender Extremities: No cyanosis Skin: Ulcer/ Wound Wound Measurements and Assessment WC - Nurse 1 - General Ulcer Measurement Start: 08/08/18 10:38 Freq: Status: Active Protocol: Activity Type Activity Date Activity User E-Sign Co-Sign Detail Recorded Client Recorded Date Recorded By Document 08/08/18 10:39 [facility] [id number] 08/08/18 10:53 [facility] 08/08/18 10:39 Wound Center Nurse 1 [Ulcer Assessment] #2- LT BUTTOCKS -Combined with other wound No -Current Size (cm) - Length 0.1 -Current Size (cm) - Width 0.1 -Current Size (cm) - Depth 0.1 -Total Square Cm 0.01 -Date of Last Picture (Recall this 08/08/18 field) -Photo Taken Yes -Tunneling No -Undermining/Tunneling No -Circular Undermining No -Structure Exposed N/A -Texture (Natalie-wound Skin Appearance) Scarring Rash -Moisture (Natalie-wound Skin Appearance Dry/Scaly ) -Color (Natalie-wound Skin Appearance) Assessed -Temperature (Natalie-wound Skin No Abnormality Appearance) (Pt Warm) -Tenderness on Palpation (Natalie-wound No Skin Appearance) -Ulcer Cleansing Rinsed/ Irrigated with Saline -Foul Odor after Cleansing No -Anesthetic Used 5% Lidocaine Gel WC - Nurse 2 - General Ulcer CM Notes Start: 08/08/18 10:38 Freq: Status: Active Protocol: Activity Type Activity Date Activity User E-Sign Co-Sign Detail Recorded Client Recorded Date Recorded By Document 08/08/18 11:09 [id number] 08/08/18 11:14 MW 08/08/18 11:09 Wound Center Nurse 2 [Procedure/Treatment] -Time 11:09 -Correct Patient Yes -Correct Side, Site, Position Yes -Correct Procedure Yes -Procedure Performed Yes -Type of Procedure Debridement -Clinical Debridement Subcutaneous -Post Debridement Size (cm) - Length 1.0 -Post Debridement Size (cm) - Width 1.0 -Post Debridement Size (cm) - Depth 0.1 -Total Square Cm 1.00 -Wound/Ulcer Outcome Not Healed -Ulcer Cleansing Rinsed/ Irrigated with Saline -Foul Odor after Cleansing No -Bioengineered Tissue No -Bleeding Controlled with Pressure -Treatment Response Procedure Tolerated Well [See Physician Procedure note for Specifics] Pain Scale: 0-10 Numeric [Pain] -Is Patient Pain Free? Yes Musculoskeletal: No Muscle Wasting Neurological: Cranial nerves II-XII grossly intact Psych/Mental Status: Normal Affect Debridement Note Post-Debridement Measurements/Treatment WC - Nurse 2 - General Ulcer CM Notes Start: 08/08/18 10:38 Freq: Status: Active Protocol: Activity Type Activity Date Activity User E-Sign Co-Sign Detail Recorded Client Recorded Date Recorded By Document 08/08/18 11:09 MW [id number] 08/08/18 11:14 MW 08/08/18 11:09 Wound Center Nurse 2 #2- LT BUTTOCKS -Time 11:09 -Correct Patient Yes -Correct Side, Site, Position Yes -Correct Procedure Yes -Procedure Performed Yes -Type of Procedure Debridement -Clinical Debridement Subcutaneous -Post Debridement Size (cm) - Length 1.0 -Post Debridement Size (cm) - Width 1.0 -Post Debridement Size (cm) - Depth 0.1 -Total Square Cm 1.00 -Wound/Ulcer Outcome Not Healed -Ulcer Cleansing Rinsed/ Irrigated with Saline -Foul Odor after Cleansing No -Bioengineered Tissue No -Bleeding Controlled with Pressure -Treatment Response Procedure Tolerated Well Pain Scale: 0-10 Numeric Is Patient Pain Free? Yes Wound debrided: Left buttock Wound Grade/Stage: Stage II Type of Debridement: Excisional debridement Anesthesia Used: 4% Lidocaine Solution Depth: Down to and including healthy tissue, in the subcutaneous layer Percentage of wound debrided: 100 Instrument Used: 7mm curette, #15 blade, Forceps Tissue Removed: Devitalized tissue Severity: Fat Layer Exposed Amount of bleeding with debridement: Mild Bleeding Controlled with: Pressure Patient tolerated procedure well Assessment/Plan Assessment: Left Buttocks Decubitus ulcer due to prolonged sitting. Severe GERD. Urinary Incontinence. Plan: Returns with new decubitus left buttock ulcer. Home care with no significant improvement. Debridement done as documented above. Procedure was well-tolerated. Promogran with Adaptic over top. OptiForm over top. Change daily. Offload area regularly. Gel cushions for sitting and low loss air mattress. Optimal/increased protein intake recommended. Follow-up in 2 weeks. All her questions were answered and they were advised to call with any further questions or concerns. This note was generated with [employer] dictation software. It may contain incorrect words, spelling, and punctuation that were not noted in checking the note before signing.
[2018-08-22 11:19] VITALS: BP 147/84; PULSE 67; RESP 16; TEMP 37.2; BMI 25.6
--- NOTE | 2018-08-22 12:19 | PCM.WC.PN ---
(1) Decubitus ulcer of left buttock, stage 2 Status: Acute Current Visit: No Code(s): L89.322 - Pressure ulcer of left buttock, stage 2 Type of Wound Chief Complaint: Decubitus ulcer of buttock. History of Wound: Ms Price is a 77yo with PMH significant for severe GERD and Urinary Incontinence who has been managed for Left buttock said to be a result of prolonged sitting due to worsening GERD on laying down. She was discharged from the wound center over a month ago however now represents with a new ulcer. Has had at home wound care nurse, over with minimal improvement. She feels well otherwise denies chills, fever or any change in her bowel habit. Progress of Wound: Healed. - Physical Exam Vital Signs Temp Pulse Resp BP 98.9 F 67 16 147/84 H 08/22/18 11:19 08/22/18 11:19 08/22/18 11:19 08/22/18 11:19 General: Alert, Oriented x3, Cooperative, No apparent distress HEENT: Atraumatic Neck: Supple Lungs: Normal air movement Abdomen: Non Tender Extremities: No cyanosis Wound Measurements and Assessment WC - Nurse 1 - General Ulcer Measurement Start: 08/08/18 10:38 Freq: Status: Active Protocol: Activity Type Activity Date Activity User E-Sign Co-Sign Detail Recorded Client Recorded Date Recorded By Document 08/22/18 11:19 [id number] 08/22/18 11:21 08/22/18 11:19 Wound Center Nurse 1 [Ulcer Assessment] #2- LT BUTTOCKS -Combined with other wound No -Current Size (cm) - Length 0.1 -Current Size (cm) - Width 0.1 -Current Size (cm) - Depth 0.1 -Total Square Cm 0.01 -Epithelialization Large 67-100% -Tunneling No -Undermining/Tunneling No -Circular Undermining No -Exudate Amt None Present (0 %) -Wound Margin Flat & Intact -Granulation Amt None Present (0 %) -Slough/Fibrin No -Necrosis Amt None Present (0 %) -Structure Exposed N/A -Texture (Natalie-wound Skin Appearance) Assessed Scarring -Moisture (Natalie-wound Skin Appearance Assessed ) Dry/Scaly -Color (Natalie-wound Skin Appearance) No Abnormality Assessed -Temperature (Natalie-wound Skin No Abnormality Appearance) (Pt Warm) -Tenderness on Palpation (Natalie-wound No Skin Appearance) -Ulcer Cleansing Rinsed/ Irrigated with Saline -Foul Odor after Cleansing No [Edema Assessment] -Lower Limb Edema Present No WC - Nurse 2 - General Ulcer CM Notes Start: 08/08/18 10:38 Freq: Status: Active Protocol: Activity Type Activity Date Activity User E-Sign Co-Sign Detail Recorded Client Recorded Date Recorded By Document 08/22/18 11:23 MW [id number] 08/22/18 11:28 MW 08/22/18 11:23 Wound Center Nurse 2 [Procedure/Treatment] #2- LT BUTTOCKS -Time 11:24 -Correct Patient Yes -Correct Side, Site, Position Yes -Correct Procedure Yes -Procedure Performed No -Post Debridement Size (cm) - Length 0 -Post Debridement Size (cm) - Width 0 -Post Debridement Size (cm) - Depth 0 -Total Square Cm 0 -Wound/Ulcer Outcome Healed- Epithelialized -Ulcer Cleansing Not Cleansed -Foul Odor after Cleansing No -Bioengineered Tissue No -Bleeding Controlled with NA -Treatment Response Procedure Tolerated Well [See Physician Procedure note for Specifics] Pain Scale: 0-10 Numeric [Pain] -Is Patient Pain Free? Yes Musculoskeletal: No Muscle Wasting Neurological: Cranial nerves II-XII grossly intact Psych/Mental Status: Normal Affect Debridement Note Post-Debridement Measurements/Treatment WC - Nurse 2 - General Ulcer CM Notes Start: 08/08/18 10:38 Freq: Status: Active Protocol: Activity Type Activity Date Activity User E-Sign Co-Sign Detail Recorded Client Recorded Date Recorded By Document 08/08/18 11:09 MW [id number] 08/08/18 11:14 MW Document 08/22/18 11:23 MW [id number] 08/22/18 11:28 MW 08/08/18 08/22/18 11:09 11:23 Wound Center Nurse 2 #2- LT BUTTOCKS -Time 11:09 11:24 -Correct Patient Yes Yes -Correct Side, Site, Position Yes Yes -Correct Procedure Yes Yes -Procedure Performed Yes No -Type of Procedure Debridement -Clinical Debridement Subcutaneous -Post Debridement Size (cm) - Length 1.0 0 -Post Debridement Size (cm) - Width 1.0 0 -Post Debridement Size (cm) - Depth 0.1 0 -Total Square Cm 1.00 0 -Wound/Ulcer Outcome Not Healed Healed- Epithelialized -Ulcer Cleansing Rinsed/ Not Cleansed Irrigated with Saline -Foul Odor after Cleansing No No -Bioengineered Tissue No No -Bleeding Controlled with Pressure NA -Treatment Response Procedure Procedure Tolerated Well Tolerated Well Pain Scale: 0-10 Numeric Is Patient Pain Free? Yes Yes No debridement was completed today Assessment/Plan Assessment: Left Buttocks Decubitus ulcer due to prolonged sitting. Severe GERD. Urinary Incontinence. Plan: Wound is healed. Moisturize area with Aquaphor/Vaseline. OptiForm over area for 2 more weeks. Continue to offload area regularly. Gel cushions for sitting and low loss air mattress. Optimal/increased protein intake recommended. All her questions were answered and they were advised to call with any further questions or concerns. Discharged from the wound clinic. This note was generated with [employer] software. It may contain incorrect words, spelling, and punctuation that were not noted in checking the note before signing.
== END 2018-08-28 23:59 ==
LOC: WC 11:00
PROVIDERS: Family Provider Family Medicine; PCP Family Medicine; Visit Provider Internal Medicine
DX: L89.322 Pressure ulcer of left buttock, stage 2 (principal); K21.9 Gastro-esophageal reflux disease without esophagitis; R32 Unspecified urinary incontinence; Z79.899 Other long term (current) drug therapy
CPT/HCPCS: 11042; 99213; G0463

== ENCOUNTER → 2018-12-25 16:33 | Outpatient (CLI) | payer MEDICARE, OTHER, SELFPAY ==
[2018-12-25 18:20] LABS: Absolute Lymphocyte Count 1.36 X10^3/ul (0.83-4.51); Absolute Neutrophil Count 2.6 X10^3/uL (2.0-7.7); Basophil# 0.02 X10^3/uL; Basophil% 0.4 % (0-1); Eosinophil# 0.07 X10^3/uL; Eosinophils% 1.6 % (0-5); Hematocrit 44.2 % (37-47); Lymphocyte # 1.36 X10^3/ul (4.0); Lymphocyte % 30.2 % (19-41); Mean Corp Hgb Conc 31.7 g/gl (32-36); Mean Corpuscular Volume 94.8 fL (81-99); Mean Platelet Vol. 13.4 fl (6.2-12.0); Monocyte# 0.46 X10^3/uL; Monocyte% 10.2 % (0-10); Neutrophil # 2.58 X10^3/uL (2.7-7.7); Neutrophil % 57.4 % (47-70); Platelet Count 109 K/mm3 (150-450); RBC Distribution Width CV 12.8 % (11.6-14.6); Red Blood Count 4.66 M/mm3 (4.2-5.4); White Blood Count 4.5 K/mm3 (4.4-11.0)
[2018-12-25 18:22] LABS: POSITIVE COUNT NO; POSITIVE DIFFERENTIAL NO; POSITIVE MORPHOLOGY NO
[2018-12-25 18:54] LABS: Vitamin B12 1084 pg/mL (211-911); Vitamin D,25 Hydroxy 59.4 ng/mL (29.95-100.01)
[2018-12-25 19:13] LABS: ALB/GLOB Ratio 1.2 RATIO (0.9-2.4); AST(SGOT) 14 U/L (15-37); Alanine Aminotransfer ALT/SGPT 23 U/L (13-56); Albumin, Serum 3.8 g/dL (3.2-5.0); Alkaline Phosphatase 49 U/L (45-117); Anion Gap 9 (5-15); BUN 29 mg/dL (7-18); BUN/Creat Ratio 32.2 RATIO (10-20); Calcium,Total 8.9 mg/dL (8.5-10.1); Chloride 105 mmol/L (98-107); EST Glomerular Filtration Rate 64 mL/min (>60); Est Glom Filt Rate - Afr Amer 77 mL/min (>60); Globulin 3.1 g/dL (2.2-4.2); Glucose 84 mg/dL (74-106); Potassium 3.7 mmol/L (3.5-5.1); Protein, Total 6.9 g/dL (6.4-8.2); Sodium Level 145 mmol/L (136-145); Thyroid Stim Hormone (TSH) 2.53 uIU/mL (0.358-3.74)
== END ==
PROVIDERS: Family Provider Family Medicine; PCP Family Medicine; Referring Provider Family Medicine; Visit Provider Family Medicine
DX: R41.3 Other amnesia (principal); M85.80 Other specified disorders of bone density and structure, unspecified site; I10 Essential (primary) hypertension; L98.429 Non-pressure chronic ulcer of back with unspecified severity
CPT/HCPCS: 36415; 80053; 82306; 82607; 84443; 85025

== ENCOUNTER → 2019-02-19 | Outpatient (CLI) | payer MEDICARE, OTHER, SELFPAY ==
--- NOTE | 2019-02-19 15:37 | RAD_ITS ---
STUDY: X-RAY - THORACIC SPINE REASON FOR EXAM: Female, 78 years old. Follow-up week ago. Severe mid back pain. TECHNIQUE: 2 view(s) of the thoracic spine were obtained. COMPARISON: None. FINDINGS: Normal kyphosis of the thoracic spine. There is no substantial scoliosis. There is demineralization of the thoracic spine with endplate spondylosis. There is multilevel disc space narrowing of the thoracic spine. There is no evidence of acute fracture or loss of vertebral axial height. There are calcified lymph nodes in the AP window. RAD/Thoracic Spine 2 Views IMPRESSION: Degenerative changes of the thoracic spine without fracture or subluxation. Electronically Signed: Babak Rivera DO at 23:52 EDT Tel [phone], Service support ,
--- NOTE | 2019-02-19 15:38 | RAD_ITS ---
STUDY: X-RAY - LUMBAR SPINE REASON FOR EXAM: Female, 78 years old. Fall one week ago. Severe mid back pain. TECHNIQUE: 3 view(s) of the lumbar spine were obtained. COMPARISON: August 14, 2018. FINDINGS: There is an exaggerated lumbar lordosis. There is a mild dextroscoliosis of the thoracolumbar spine with convexity at T12. There is a normal alignment of the vertebrae. There is generalized demineralization of the vertebral bodies. There is minimal disc space narrowing, most marked at L2-3. There is no evidence of acute fracture or loss of vertebral axial height. There is diffuse surgical clips in the left retroperitoneum and pelvis RAD/Lumbar Spine 2 or 3 Views IMPRESSION: Stable degenerative changes of the lumbar lordosis with exaggerated stenosis. Findings appear essentially unchanged. Electronically Signed: Babak Rivera DO at 23:43 EDT Tel [phone], Service support ,
== END | disposition home or self-care (01) ==
LOC: MTRAD 15:32
PROVIDERS: Family Provider Family Medicine; PCP Family Medicine; Referring Provider Family Medicine; Visit Provider Family Medicine
DX: M54.5 Low back pain (principal); M54.6 Pain in thoracic spine
CPT/HCPCS: 72070; 72100

== ENCOUNTER → 2019-04-03 | Outpatient (CLI) | payer MEDICARE, OTHER, SELFPAY | END | disposition home or self-care (01) | PROVIDERS: Family Provider Family Medicine; PCP Family Medicine; Referring Provider Family Medicine; Visit Provider Family Medicine | DX: R30.0 Dysuria (principal) | CPT/HCPCS: 87086; 87088 ==

== ENCOUNTER → 2019-05-22 | Outpatient (CLI) | payer MEDICARE, OTHER, SELFPAY ==
--- NOTE | 2019-05-22 14:46 | BI_ITS ---
MAMMOGRAPHY - BILATERAL SCREENING 3-D TOMOSYNTHESIS REASON FOR EXAM: Female, 78 years old. Bilateral Screening 3-D tomosynthesis PERTINENT HISTORY: Sister and mother with breast cancer.. TECHNIQUE: 2-D mammograms and 3-D Tomosynthesis of the breast (s) were performed. CAD was performed. COMPARISON: 04/10/2018 FINDINGS: The breast composition is composed of scattered fibroglandular density. Scattered benign calcifications are seen. No dense spiculated masses or suspicious microcalcifications are identified. No architectural distortion is identified. There is no skin thickening or retraction. There has been no significant change since the prior study. BI/SCREEN MAMM (CAD) W/REGINALD BILAT IMPRESSION: No mammographic signs of malignancy. Routine yearly mammograms recommended. ASSESSMENT CATEGORY: BIRADS Category 1: Negative. A letter regarding these results will be sent to the patient by the facility within 30 days. FOLLOW UP RECOMMENDATION: Yearly follow up mammogram recommended. (A) Approximately 10% of breast cancers are not detected by mammography. A normal mammogram should not delay biopsy of a clinically suspicious abnormality. Electronically Signed: Hiram Brooks MD at 7:51 EDT , Service support ,
== END | disposition home or self-care (01) ==
PROVIDERS: Family Provider Family Medicine; PCP Family Medicine; Referring Provider Family Medicine; Visit Provider Family Medicine
DX: Z12.31 Encounter for screening mammogram for malignant neoplasm of breast (principal)
CPT/HCPCS: 77063; 77067

== ENCOUNTER → 2019-06-26 | Outpatient (CLI) | payer MEDICARE, OTHER, SELFPAY ==
[2019-06-26 15:50] LABS: Absolute Lymphocyte Count 1.09 X10^3/uL (0.83-4.51); Absolute Neutrophil Count 3.3 X10^3/uL (2.0-7.7); Basophil# 0.02 X10^3/uL; Basophil% 0.4 % (0-1); Eosinophil# 0.13 X10^3/uL; Eosinophils% 2.5 % (0-5); Hematocrit 40.7 % (37-47); Lymphocyte # 1.09 X10^3/ul (4.0); Lymphocyte % 20.9 % (19-41); Mean Corp Hgb Conc 31.9 g/dL (32-36); Mean Corpuscular Hgb 30.2 pg (27.0-32.0); Mean Corpuscular Volume 94.7 fL (81-99); Mean Platelet Vol. 13.7 fl (6.2-12.0); Monocyte# 0.63 X10^3/uL; Monocyte% 12.1 % (0-10); NRBC Flagged by Analyzer 0 % (0-5); Neutrophil # 3.33 X10^3/uL (2.7-7.7); Neutrophil % 63.9 % (47-70); Platelet Count 100 K/mm3 (150-450); RBC Distribution Width CV 12.3 % (11.6-14.6); RBC Distribution Width SD 42.7 fl (35.1-43.9); White Blood Count 5.2 K/mm3 (4.4-11.0)
[2019-06-26 16:11] LABS: AST(SGOT) 11 U/L (15-37); Alanine Aminotransfer ALT/SGPT 24 U/L (13-56); Albumin, Serum 3.6 g/dL (3.2-5.0); Alkaline Phosphatase 45 U/L (45-117); Anion Gap 3 (5-15); BUN 36 mg/dL (7-18); BUN/Creat Ratio 41.4 RATIO (10-20); Calcium,Total 8.9 mg/dL (8.5-10.1); Chloride 108 mmol/L (98-107); Creatinine, Serum 0.87 mg/dL (0.55-1.02); EST Glomerular Filtration Rate 67 mL/min (>60); Est Glom Filt Rate - Afr Amer 81 mL/min (>60); Globulin 3.7 g/dL (2.2-4.2); Glucose 84 mg/dL (74-106); Potassium 3.7 mmol/L (3.5-5.1); Protein, Total 7.3 g/dL (6.4-8.2); Sodium Level 142 mmol/L (136-145); Thyroid Stim Hormone (TSH) 2.55 uIU/mL (0.358-3.74)
== END | disposition home or self-care (01) ==
LOC: MFPLAB 14:23
PROVIDERS: Family Provider Family Medicine; PCP Family Medicine; Referring Provider Family Medicine; Visit Provider Family Medicine
DX: R10.9 Unspecified abdominal pain (principal); R60.0 Localized edema
CPT/HCPCS: 36415; 80053; 84443; 85025

== ENCOUNTER → 2019-07-08 | Outpatient (CLI) | payer MEDICARE, OTHER, SELFPAY ==
--- NOTE | 2019-07-08 13:57 | CT_ITS ---
STUDY: CT BRAIN WITHOUT CONTRAST REASON FOR EXAM: Female, 78 years old. Mental status change RADIATION DOSAGE (If Supplied By Facility): CTDIvol = ( 44.99 ) mGy, DLP = ( 812.98 ) mGycm TECHNIQUE: Transaxial CT imaging of the brain was performed without administration of intravenous contrast material. Individualized dose optimization techniques were used for this CT. COMPARISON: 08/25/2016 FINDINGS: Normal soft tissue structures. Normal calvarium. There is mild cerebral atrophy with widening of the extra-axial spaces and ventricular dilatation. There is mild diffuse white matter disease, stable. Normal basal ganglia and thalami. Normal brainstem. There is mild cerebellar atrophy. There is no intracranial hemorrhage. There are no findings of an acute ischemic infarction. Normal visualized paranasal sinuses. CT/Brain/Head without Contrast IMPRESSION: Chronic involutional changes of the brain, stable. No abnormality. Electronically Signed: Herbert Hudson MD at 15:40 EDT , Service support ,
== END | disposition home or self-care (01) ==
LOC: CT 13:53
PROVIDERS: Family Provider Family Medicine; PCP Family Medicine; Referring Provider Family Medicine; Visit Provider Family Medicine
DX: G91.2 (Idiopathic) normal pressure hydrocephalus (principal)
CPT/HCPCS: 70450

== ENCOUNTER → 2019-07-09 | Outpatient (CLI) | payer MEDICARE, OTHER, SELFPAY | END | disposition home or self-care (01) | LOC: LABSPEC 10:27 | PROVIDERS: Family Provider Family Medicine; PCP Family Medicine; Referring Provider Nurse Practitioner Adult Health; Visit Provider Nurse Practitioner Adult Health | DX: N76.0 Acute vaginitis (principal) | CPT/HCPCS: 87070; 87077; 87205 ==

== ENCOUNTER 2019-07-17 12:20 | Inpatient (IN) | payer MEDICARE, OTHER, SELFPAY ==
[2019-07-17 12:22] VITALS: BP 139/68; PULSE 59; RESP 18; TEMP 37.2; O2SAT 96; BMI 22.3
--- NOTE | 2019-07-17 12:58 | EKG12_ITS ---
Test Reason : ALT LOC Blood Pressure : / mmHG Vent. Rate : 061 BPM Atrial Rate : 061 BPM P-R Int : 124 ms QRS Dur : 132 ms QT Int : 458 ms P-R-T Axes : -20 -55 090 degrees QTc Int : 461 ms Normal sinus rhythm Left axis deviation Left bundle branch block Abnormal ECG Confirmed by DOUGLAS MCNALLY, BELLE ([id number]), city editor PIPO WHITE ([id number]) on 07/18/2019 1:25:21 PM Referred By: Vineet Mckay Confirmed By:PADMINI COLE MD
--- NOTE | 2019-07-17 12:58 | CT_ITS ---
STUDY: CT ABDOMEN AND PELVIS WITHOUT CONTRAST REASON FOR EXAM: Female, 78 years old. Abdominal pain. Hypertension. History of renal carcinoma. RADIATION DOSAGE (If Supplied By Facility): CTDIvol = ( 14.28 ) mGy, DLP = ( 745.49 ) mGycm TECHNIQUE: Transaxial images were obtained from the dome of the diaphragm to the symphysis pubis without oral contrast, and without intravenous contrast. Sagittal and coronal images were reconstructed. Individualized dose optimization techniques were used for this CT. COMPARISON: None. FINDINGS: Increased markings with areas of confluence in the lower lobe suggestive of atelectasis and/or infiltrate. Coronary artery calcification. Normal liver. There are surgical clips in the gallbladder fossa consistent with a prior cholecystectomy. Normal spleen. Normal pancreas. Normal bilateral adrenal glands. Normal right kidney. Prior left nephrectomy. Normal visualized stomach. Normal small intestine. There are multiple colonic diverticula consistent with diverticulosis. The appendix is visualized and appears normal. There is diffuse atherosclerotic calcification of the abdominal aorta, without a demonstrated aneurysm. Normal inferior vena cava. Normal retroperitoneum. Distended urinary bladder. There is absence of the uterus consistent with a prior hysterectomy. Small benign-appearing bilateral inguinal lymph nodes. Normal abdominal wall. Increased lordosis. CT/Abdomen/Pelvis without Cont IMPRESSION: Status post left nephrectomy. Sigmoid diverticulosis. Electronically Signed: Tyler Mcdonough, at 13:53 EDT , Service support ,
--- NOTE | 2019-07-17 13:05 | RAD_ITS ---
STUDY: X-RAY CHEST REASON FOR EXAM: Female, 78 years old. Abdominal pain. Decreased level of consciousness. Recent switch and medication. TECHNIQUE: Single AP portable view of the chest. COMPARISON: None. FINDINGS: The lungs are clear and expanded. There is no demonstrated pleural abnormality. Normal size heart. Calcified left hilar lymph nodes. Normal visualized pulmonary arteries. There is atherosclerotic tortuosity of the aortic arch and descending thoracic aorta. Normal visualized thoracic spine. Normal visualized ribs, clavicles, and shoulders. Surgical clips are seen in the epigastric region. RAD/Chest 1 View (Portable) IMPRESSION: No acute abnormality is seen. Electronically Signed: Tyler Mcdonough, at 13:21 EDT , Service support ,
[2019-07-17 13:21] VITALS: BP 142/66; PULSE 71; RESP 18; O2SAT 95
[2019-07-17 13:22] LABS: Absolute Lymphocyte Count 1.12 X10^3/uL (0.83-4.51); Absolute Neutrophil Count 6.4 X10^3/uL (2.0-7.7); Basophil# 0.04 X10^3/uL; Basophil% 0.5 % (0-1); Eosinophil# 0.14 X10^3/uL; Eosinophils% 1.6 % (0-5); Hematocrit 43.1 % (37-47); Hemoglobin 13.9 g/dL (12.0-15.0); Lymphocyte # 1.12 X10^3/ul (4.0); Lymphocyte % 12.9 % (19-41); Mean Corp Hgb Conc 32.3 g/dL (32-36); Mean Corpuscular Hgb 30.6 pg (27.0-32.0); Mean Corpuscular Volume 94.9 fL (81-99); Mean Platelet Vol. 12.9 fl (6.2-12.0); Monocyte# 0.94 X10^3/uL; Monocyte% 10.8 % (0-10); NRBC Flagged by Analyzer 0 % (0-5); Neutrophil # 6.43 X10^3/uL (2.7-7.7); Neutrophil % 73.9 % (47-70); Platelet Count 116 K/mm3 (150-450); RBC Distribution Width CV 12.2 % (11.6-14.6); RBC Distribution Width SD 43.2 fl (35.1-43.9); Red Blood Count 4.54 M/mm3 (4.2-5.4); White Blood Count 8.7 K/mm3 (4.4-11.0)
[2019-07-17 13:36] LABS: BUN 27 mg/dL (7-18); Creatinine, Serum 1.03 mg/dL (0.55-1.02); Estimated Creatinine Clearance 46.28 ml/min; Glucose 103 mg/dL (74-106)
[2019-07-17 13:37] LABS: ALB/GLOB Ratio 0.9 RATIO (0.9-2.4); AST(SGOT) 11 U/L (15-37); Alanine Aminotransfer ALT/SGPT 20 U/L (13-56); Albumin, Serum 3.4 g/dL (3.2-5.0); Alkaline Phosphatase 45 U/L (45-117); Anion Gap 8 (5-15); BUN/Creat Ratio 26.2 RATIO (10-20); Calcium,Total 8.8 mg/dL (8.5-10.1); Chloride 110 mmol/L (98-107); EST Glomerular Filtration Rate 55 mL/min (>60); Est Glom Filt Rate - Afr Amer 66 mL/min (>60); Globulin 3.8 g/dL (2.2-4.2); Potassium 3.9 mmol/L (3.5-5.1); Protein, Total 7.2 g/dL (6.4-8.2); Sodium Level 145 mmol/L (136-145)
[2019-07-17] MEDS: 0.9% Normal Saline 1,000 ML 150 ML IV (13:55)
[2019-07-17 13:59] LABS: Bacteria 0 SEEN /hpf (None Seen); Mucous, Urine 0 SEEN /hpf (<or=2+); Red Blood Cells-Urine 0 SEEN /hpf (0-5); Squamous Epithelial Cells - UA 0 SEEN /hpf (5-10); White Blood Cells 0 SEEN /hpf (0-5)
[2019-07-17 14:00] VITALS: BP 129/93; PULSE 63; RESP 18; O2SAT 95
[2019-07-17 14:06] LABS: Color, Urine Yellow (Yellow); Glucose, Dipstick Normal (Normal); Ketone-Dipstick Negative (Negative); Leukocyte Esterase-Dipstick Negative /ul (Negative); Nitrite-Dipstick Negative (Negative); Occult Blood-Urine Negative /ul (Negative); Protein-Dipstick Negative (Negative); Specific Gravity, Urine 1.015 (1.002-1.030); Urine Bilirubin Dipstick Negative (Negative); Urine Clarity Clear (Clear); Urine Urobilinogen Normal (Normal)
--- NOTE | 2019-07-17 14:27 | ED.VISSUMM ---
- ER Visit Summary Date of Service: 07/17/19 Chief Complaint: [Weakness] History of Present Illness: The patient is a 78 F [presents to the emergency department with increased weakness and lethargy over the last 2 days. Patient states that this morning he could not feed herself which is unusual for her. Patient's been sleeping more. Patient lives with her daughter and states that over the last 2 days there is been a significant decline. Patient had no falls. No fevers. Patient was seen by her primary care physician yesterday and diagnosed with psychosis and depression. Patient is rather a poor historian and will open her eyes at times it really does not answer any questions. Patient is normally verbal but has not spoken any words last 24 hours. Daughter states the patient had a CT scan of her brain about 9 days ago that was unremarkable. Patient is not on any blood thinners. Patient does have history of dementia, UTIs, hypertension, high cholesterol.] Physical Examination: [HEENT-PERRLA, EOMI. Cranial nerves II through XII grossly intact. TMs clear. Mucous membranes moist. No adenopathy. Cardiovascular-regular rate and rhythm without murmur or ectopy Lungs-clear to auscultation, chest wall stable without crepitus or subcu emphysema Abdomen-normoactive bowel sounds, soft. Patient has some tenderness palpation over lower abdomen diffusely. There is no rebound, rigidity, or perineal signs. Patient does grimace when you palpate the abdomen. Extremities-intact ?4, normal range of motion, normal pulses, atraumatic] Test Results: [EKG obtained arrival shows sinus rhythm with a ventricular rate 61 bpm with left bundle branch block. CBC with differential was normal. Chemistries unremarkable. Urinalysis was normal. Troponin is less than 0.015.] Emergency Department Course and Treatment: [Patient had an IV line established and was given normal saline.] Treatment Plan: [Admit] Disposition: [Admit] Impression: [Generalized weakness Dementia Failure to thrive] This note was generated with [employer] dictation software. It may contain incorrect words, spelling, and punctuation that were not noted in review of the chart prior to signing ED Disposition - Plan for ED Patient: Referrals: Arik Rey MD [Primary Care Provider] -
[2019-07-17 14:46] VITALS: BMI 22.3
[2019-07-17 15:22] VITALS: BMI 23.1
[2019-07-17] MEDS: 0.9% Normal Saline 1,000 ML 100 ML IV ×2 (17:16→20:46)
[2019-07-17 17:26] LABS: Vitamin B12 874 pg/mL (211-911)
--- NOTE | 2019-07-17 17:54 | PCM.HP.STD ---
Problem List (1) Dementia Status: Acute (2) Hypertension Status: Chronic (3) Depression Status: Acute (4) GERD (gastroesophageal reflux disease) Status: Acute (5) Urine incontinence Status: Acute History of Present Illness Date of Admission: 07/17/19 Chief Complaint: Worsening dementia The patient is a 78 year old F with PMH as below who presents from home with worsening signs of dementia. She was a poor historian and noncommunicative and therefore the majority of the history was taken from the daughters, 1 of which is an CERTIFIED FIRST ASSISTANT in the community. Per the daughter's she has over the last 3 weeks had a significant decline where she had previously been stable. And today she required significant prompting to eat and even then would spit out her food and she has not been having great intake for the last couple of days. Over the last 3 weeks she is seen multiple physicians including her daughter who is an CERTIFIED FIRST ASSISTANT, in the office for a brain CT about 9 days ago for possible normal pressure hydrocephalus which was normal, and she was treated for yeast infection recently as well. Per the daughter, there is no new medications, other than a low dose Seroquel because of her , but she had only taken 1 pill yesterday. The daughter said also noticed that she had been having some grimacing in with abdominal palpation by the ER physician and therefore CT scan of the abdomen was obtained which was essentially normal, vital signs have also been normal and all lab work has been unremarkable. Past Medical History Past Medical History (Chronic Problems): Chronic Problems Hypertension (Chronic) Allergies nitrofurantoin macrocrystalline [From Macrodantin] Allergy (Verified 08/25/16 15:17) Unknown phenazopyridine HCl [From Azo] Allergy (Verified 08/25/16 15:17) Unknown Sulfa (Sulfonamide Antibiotics) Allergy (Verified 08/25/16 15:17) Swelling bacitracin [From Neosporin ([id number])] Adverse Reaction (Verified 08/25/16 15:17) Rash neomycin [From Neosporin ([id number])] Adverse Reaction (Verified 08/25/16 15:17) Rash polymyxin B [From Neosporin ([id number])] Adverse Reaction (Verified 08/25/16 15:17) Rash Home Medications: Ambulatory Orders Medication Instructions Recorded Atenolol [Tenormin (beta Chato)] 25 mg PO DAILY 08/25/16 Multivit-Min/FA/Lycopen/Lutein 1 each PO DAILY 08/25/16 [Adults 50+ Multivitamin Tablet] Oxybutynin Chloride [Ditropan Xl] 10 mg PO DAILY 08/25/16 Simvastatin [Zocor] 10 mg PO QHS 08/25/16 Fexofenadine HCl 60 mg PO BID 08/08/18 Furosemide [Lasix] 20 mg PO BIDLX 08/08/18 Potassium Chloride [Klor-Con] 20 meq PO DAILY 08/08/18 Bacillus Coagulans [Digestive 1 ea PO QODAY 07/17/19 Advantage] Biotin 5 mg PO QODAY 07/17/19 Calcitonin,[place],Synthetic 1 spray NARES QHS 07/17/19 [Calcitonin-[place]] Calcium Carb/Vitamin D 1 tab PO DAILY@0800 07/17/19 [Caltrate-600 With Vit D Tab] Cholecalciferol (Vitamin D3) 2,000 unit PO DAILY 07/17/19 [Vitamin D3] Escitalopram Oxalate 15 mg PO DAILY 07/17/19 Memantine HCl 10 mg PO BID 07/17/19 Omeprazole [Prilosec] 20 mg PO DAILY 07/17/19 Ondansetron HCl [Zofran] 4 mg PO DAILY PRN PRN 07/17/19 Quetiapine Fumarate [Seroquel] 12.5 mg PO DAILY 07/17/19 Vit A/Vit C/Vit E/Zinc/Copper 1 ea PO BID 07/17/19 [Preservision Areds Tablet] Surgical History: no surgical history Smoking Status: Never smoker Tobacco Use: Secondhand Alcohol: None Drugs: None - *Family History Maternal History Items: Cancer Paternal History Items: Heart Disease Review of Systems Unable to obtain accurate/complete ROS d/t: Dementia VTE Information - Inpt Only VTE Present on Admission: No Patient Problems: Active and Suspected Problems Dementia (Acute) Depression (Acute) - Physical Exam General: No apparent distress, Confused, Disoriented HEENT: Atraumatic, PERRLA, EOMI, Normocephalic Oral: Dry Mucosa Neck: Supple, No JVD Lungs: Clear to auscultation, Normal air movement, No rhonchi, No wheeze, No rales, Diminished Cardiovascular: Regular rate, Regular Rhythm, Normal S1, Normal S2, No murmurs Abdomen: Soft, Non-Distended, No Hepato-splenomegaly, Tender - Some grimacing with deep palpation in all quadrants Extremities: No edema, Capillary Refill Less than 3 Seconds Skin: No rashes, No breakdown Neurological: - - She was not alert enough to participate in any meaningful neurological exam Psych/Mental Status: - - She was not alert enough for mental status or psych exam Vital Signs Temp Pulse Resp BP Pulse Ox 98.9 F 63 18 129/93 H 95 07/17/19 12:22 07/17/19 14:00 07/17/19 14:00 07/17/19 14:00 07/17/19 14:00 Oxygen Delivery Method Room Air Weight: 157 lb Body Mass Index (BMI) 23.1 Intake and Output for Last 24 Hours 07/15/19 07/16/19 07/17/19 23:59 23:59 23:59 Intake Total 505 / 505 Balance 505 / 505 Laboratory Tests Past 24 Hrs 07/17/19 07/17/19 07/17/19 12:40 12:40 12:40 WBC 8.7 RBC 4.54 Hgb 13.9 Hct 43.1 MCV 94.9 MCH 30.6 MCHC 32.3 RDW Std Deviation 43.2 RDW Coeff of Michael 12.2 Plt Count 116 L MPV 12.9 H Immature Gran % (Auto) 0.300 Neut % (Auto) 73.9 H Lymph % (Auto) 12.9 L [place] % (Auto) 10.8 H Eos % (Auto) 1.6 Baso % (Auto) 0.5 Absolute Neuts (auto) 6.4 Absolute Lymphs (auto) 1.12 Nucleated RBC % 0 Sodium 145 Potassium 3.9 Chloride 110 H Carbon Dioxide 27.0 Anion Gap 8 BUN 27 H Creatinine 1.03 H Estim Creat Clear Calc 46.28 Est GFR (MDRD) Af Amer 66 Est GFR (MDRD) Non-Af 55 L BUN/Creatinine Ratio 26.2 H Glucose 103 Calcium 8.8 Total Bilirubin 0.50 AST 11 L ALT 20 Alkaline Phosphatase 45 Troponin I < 0.015 Total Protein 7.2 Albumin 3.4 Globulin 3.8 Albumin/Globulin Ratio 0.9 Vitamin B12 874 Urine Color Urine Clarity Urine pH Ur Specific [place] Urine Protein Urine Glucose (UA) Urine Ketones Urine Occult Blood Urine Nitrite Urine Bilirubin Urine Urobilinogen Ur Leukocyte Esterase Urine RBC Urine WBC Ur Squamous Epith Cells Urine Bacteria Urine Mucus 07/17/19 13:57 WBC RBC Hgb Hct MCV MCH MCHC RDW Std Deviation RDW Coeff of Michael Plt Count MPV Immature Gran % (Auto) Neut % (Auto) Lymph % (Auto) [place] % (Auto) Eos % (Auto) Baso % (Auto) Absolute Neuts (auto) Absolute Lymphs (auto) Nucleated RBC % Sodium Potassium Chloride Carbon Dioxide Anion Gap BUN Creatinine Estim Creat Clear Calc Est GFR (MDRD) Af Amer Est GFR (MDRD) Non-Af BUN/Creatinine Ratio Glucose Calcium Total Bilirubin AST ALT Alkaline Phosphatase Troponin I Total Protein Albumin Globulin Albumin/Globulin Ratio Vitamin B12 Urine Color Yellow Urine Clarity Clear Urine pH 6.0 Ur Specific [place] 1.015 Urine Protein Negative Urine Glucose (UA) Normal Urine Ketones Negative Urine Occult Blood Negative Urine Nitrite Negative Urine Bilirubin Negative Urine Urobilinogen Normal Ur Leukocyte Esterase Negative Urine RBC 0 SEEN Urine WBC 0 SEEN Ur Squamous Epith Cells 0 SEEN Urine Bacteria 0 SEEN Urine Mucus 0 SEEN Assessment/Plan All Active Problems Decubitus ulcer of left buttock, stage 2 (Acute) GERD (gastroesophageal reflux disease) (Acute) Urine incontinence (Acute) Dementia (Acute) Depression (Acute) 1. Worsening dementia/depression -Unsure as to the etiology, family is requesting an MRI to rule out stroke -I also ordered a B12 and a TSH, the B12 has come back as normal -CT scan as an outpatient 9 days ago was negative for any normal pressure hydrocephalus or any other findings other than chronic age-appropriate changes -Urine was negative for a UTI, and she had been recently treated for UTI empirically a couple weeks ago when this had all started -Had an extensive discussion for over 20 minutes about advanced care planning and the differences in CODE STATUS between full code, DNR CC and a DNR CCA. Discussed with the family that if the MRI is negative and even if it is positive for stroke and this becomes her new baseline that they may want to consider transitioning to hospice care which they do appear to be agreeable to, pending final studies. They also feel that given her extensive weakness debility and inability to follow commands anymore, that she has become too difficult to be able to manage at home. There is only has a daughter who lives with her and she is unable to keep up with 24-hour care and would like placement if possible. -We will discontinue the Seroquel for now -Would also hold her oxybutynin for now -Continue with Celexa and memantine 2. Hypertension/hyperlipidemia -Blood pressure is stable -Continue with atenolol and simvastatin -We will hold Lasix for now while she is receiving fluids for possible dehydration 3. GERD -Stable -continue with PPI DVT: SCDs Code Visit OBSV E&M: 79484 Initial observation care L3 Procedures: 10907 Advncd Care Plan 30 Min
[2019-07-17 20:26] VITALS: BP 165/67; PULSE 88; RESP 16; TEMP 37.1; O2SAT 98
[2019-07-17] MEDS: 0.9% NaCl Peripheral Flush Adult/Peds IV (20:36)
[2019-07-17] MEDS: Ketorolac 15 MG/ML Vial IV (20:36)
--- NOTE | 2019-07-17 22:55 | NURSING ---
Pt's daughter, who is a Nurse Practitioner, told Alyssa RIGGS that she felt that there were some subtle changes around the left side of her mother's mouth and also around her left eyelid. I went back to evaluate the pt as well and did not notice any obvious changes. The pt's hand grasps were strong and equal and she was able to raise her arms and hold them up. Some parts of the neurological assessment were difficult to complete because the pt would not always follow the commands that were requested. Neither Alyssa nor I were able to see the deficits to the left side of her mouth or the left eyelid. I told the family that I did not feel I could call a Stroke Alert based on what we were seeing but could certainly have the MD come look at the pt. They agreed that a Stroke Alert would not be appropriate and the Nurse Practitioner said an MRI was already scheduled for tomorrow. They felt that these changes were not acute and were uncertain as to when the alleged changes might have occurred. Dr. Haider did follow up and see the pt. No new orders.
[2019-07-18 02:30] VITALS: BP 164/95; PULSE 71; RESP 16; TEMP 36.5; O2SAT 94
[2019-07-18 02:33] VITALS: BP 148/81
--- NOTE | 2019-07-18 05:55 | MRI_ITS ---
STUDY: MRI BRAIN WITHOUT CONTRAST REASON FOR EXAM: Female, 78 years old. Cognitive decline x 3 weeks. TECHNIQUE: Standardized multiplanar fat and water weighted pulse sequences were obtained. COMPARISON: July 08, 2019 FINDINGS: There is disproportionate ventricular enlargement with prominence of the anterior horns and temporal tips of the bilateral lateral ventricles. There is confluent periventricular hyperintensity cloaking the lateral ventricles. There is thinning with bowing of the corpus callosum. . The findings are suggestive of normal pressure hydrocephalus (NPH). There are a limited number of small white matter hyperintensities, distributed throughout the deep white matter tracts of the cerebral hemispheres, consistent with mild chronic white matter ischemic changes. Normal bilateral basal ganglia. Normal thalami. There is no extra-axial fluid accumulation. Normal flow voids within the major intracranial circulation suggesting patency by spin echo criteria. Normal sella turcica, pituitary gland, infundibular stalk, optic chiasm and hypothalamus. Normal tectal plate and pineal gland. Normal midbrain, phillip and medulla. Normal cerebellum. Normal basal cisterns. MRI/Brain without Contrast IMPRESSION: No acute intracranial abnormality. Findings suggestive of NPH in the appropriate clinical setting. Electronically Signed: Guilherme Montes MD at 9:50 EDT Tel , Service support ,
[2019-07-18] MEDS: 0.9% Normal Saline 1,000 ML 100 ML IV ×2 (06:42→21:46)
[2019-07-18 07:59] LABS: Anion Gap 4 (5-15); BUN 18 mg/dL (7-18); BUN/Creat Ratio 26.9 RATIO (10-20); Calcium,Total 8.4 mg/dL (8.5-10.1); Chloride 113 mmol/L (98-107); Creatinine, Serum 0.67 mg/dL (0.55-1.02); EST Glomerular Filtration Rate 90 mL/min (>60); Est Glom Filt Rate - Afr Amer 109 mL/min (>60); Estimated Creatinine Clearance 47.67 ml/min; Glucose 81 mg/dL (74-106); Potassium 3.7 mmol/L (3.5-5.1); Sodium Level 144 mmol/L (136-145); Thyroid Stim Hormone (TSH) 3.32 uIU/mL (0.358-3.74)
[2019-07-18 08:20] VITALS: BP 163/76; PULSE 66; RESP 16; TEMP 36.9; O2SAT 92
[2019-07-18 08:30] LABS: Absolute Lymphocyte Count 1.29 X10^3/uL (0.83-4.51); Absolute Neutrophil Count 4.4 X10^3/uL (2.0-7.7); Basophil# 0.04 X10^3/uL; Basophil% 0.6 % (0-1); Eosinophil# 0.19 X10^3/uL; Eosinophils% 2.9 % (0-5); Hematocrit 42.4 % (37-47); Hemoglobin 13.8 g/dL (12.0-15.0); Lymphocyte # 1.29 X10^3/ul (4.0); Lymphocyte % 19.7 % (19-41); Mean Corp Hgb Conc 32.5 g/dL (32-36); Mean Corpuscular Hgb 30.5 pg (27.0-32.0); Mean Corpuscular Volume 93.6 fL (81-99); Mean Platelet Vol. 13.1 fl (6.2-12.0); Monocyte# 0.63 X10^3/uL; Monocyte% 9.6 % (0-10); NRBC Flagged by Analyzer 0 % (0-5); Platelet Count 101 K/mm3 (150-450); RBC Distribution Width SD 41.7 fl (35.1-43.9); Red Blood Count 4.53 M/mm3 (4.2-5.4); White Blood Count 6.6 K/mm3 (4.4-11.0)
[2019-07-18] MEDS: Acetaminophen 650 MG Suppository RECTAL ×2 (10:23→18:25)
--- NOTE | 2019-07-18 10:30 | CASEMGMT ---
RN CM CREATIVE ART THERAPIST CM to room to for initial transition planning/care coordination assessment. ONEIL MOREIRA introduced self and role at [facility]. Per H/P, pt has history of dementia. Daughter, Jaclyn, present in room and voices understanding and consents to assessment at this time. Pt resting in bed w/eyes closed and did not open eyes during RN CM assessment/conversation with Jaclyn. Care providers, pharmacy, and demographics verified/updated at this time. PCP: Krissy Specialists: None Preferred Pharmacy: [facility] Insurance: [facility], [facility] Prescription Benefit: Yes Living Will/HPOA: Jaclyn states pt has LW and HCPOA, who is pt's daughter, Bina Su. Jaclyn states thought that copies of AD were on file @ [facility]. She was made aware copies not found on e-chart and asked her if these could be brought in. She states she will try to have them brought in. LNOK: 3 daughters: Bina Su/HCPSOPHIA, Jaclyn Bocanegra, and Catie Price. Living Arrangements: Pt lives with daughter, Catie. Jaclyn states pt has been declining over the past 3 weeks, with even more of a decline the past 3 days. Prior to decline, pt was able to use a walker and was eating independently. Jaclyn states that her and her 2 sisters have had a discussion re: next level of care for patient. She states they are all in agreeance that they are not able to care for her in the home/provide 24-hr care and are interested in SNF @ discharge. Discussed 3 [place] qualifying stay per [facility] guidelines and that pt is currently OBS status. She states if pt does not get the 3 [place] qualifying stay, that they are able to pay [id number] for a SNF. She states TCU would be their 1st choice. She also states her and her sisters have been looking into Long-term care for pt and that pt is currently on a waiting list @ [facility]. Hilda UMRPHY, made aware that family requesting SNF placement @ discharge. Advised Jaclyn to ask for KATHERINE/LILLIE if she has any further questions/concerns/needs arise. Voices understanding. PLAN: SNF Alexis CONDON RN, CM
--- NOTE | 2019-07-18 10:59 | PCM.CONS.GEN ---
Reason for Consult Date of Consultation: 07/18/19 Reason for Consultation: confusion History of Present Illness: The patient is a 78 year old F lives at home with daughter, who reports quit driving several years ago due to minor incidents, minor errors with cooking several months ago, now admitted with sudden worsening of gait and speech over past 3 weeks, then accelerated over past 3 days. only recieved one dose of seroquel wed, 3 days ago. found to have urinary retention 500cc on bladder scan, also complaining of bladder pain over past three weeks. per admit note:The patient is a 78 year old F with PMH as below who presents from home with worsening signs of dementia. She was a poor historian and noncommunicative and therefore the majority of the history was taken from the daughters, 1 of which is an ETHICS INSTRUCTOR in the community. Per the daughter's she has over the last 3 weeks had a significant decline where she had previously been stable. And today she required significant prompting to eat and even then would spit out her food and she has not been having great intake for the last couple of days. Over the last 3 weeks she is seen multiple physicians including her daughter who is an ETHICS INSTRUCTOR, in the office for a brain CT about 9 days ago for possible normal pressure hydrocephalus which was normal, and she was treated for yeast infection recently as well. Per the daughter, there is no new medications, other than a low dose Seroquel because of her , but she had only taken 1 pill yesterday. The daughter said also noticed that she had been having some grimacing in with abdominal palpation by the ER physician and therefore CT scan of the abdomen was obtained which was essentially normal, vital signs have also been normal and all lab work has been unremarkable. Past Medical History Past Medical History (Chronic Problems): Chronic Problems Hypertension (Chronic) Allergies nitrofurantoin macrocrystalline [From Macrodantin] Allergy (Verified 08/25/16 15:17) Unknown phenazopyridine HCl [From Azo] Allergy (Verified 08/25/16 15:17) Unknown Sulfa (Sulfonamide Antibiotics) Allergy (Verified 08/25/16 15:17) Swelling bacitracin [From Neosporin ([id number])] Adverse Reaction (Verified 08/25/16 15:17) Rash neomycin [From Neosporin ([id number])] Adverse Reaction (Verified 08/25/16 15:17) Rash polymyxin B [From Neosporin ([id number])] Adverse Reaction (Verified 08/25/16 15:17) Rash Home Medications: Ambulatory Orders Medication Instructions Recorded Atenolol [Tenormin (beta Chato)] 25 mg PO DAILY 08/25/16 Multivit-Min/FA/Lycopen/Lutein 1 each PO DAILY 08/25/16 [Adults 50+ Multivitamin Tablet] Oxybutynin Chloride [Ditropan Xl] 10 mg PO DAILY 08/25/16 Simvastatin [Zocor] 10 mg PO QHS 08/25/16 Fexofenadine HCl 60 mg PO BID 08/08/18 Furosemide [Lasix] 20 mg PO BIDLX 08/08/18 Potassium Chloride [Klor-Con] 20 meq PO DAILY 08/08/18 Bacillus Coagulans [Digestive 1 ea PO QODAY 07/17/19 Advantage] Biotin 5 mg PO QODAY 07/17/19 Calcitonin,[place],Synthetic 1 spray NARES QHS 07/17/19 [Calcitonin-[place]] Calcium Carb/Vitamin D 1 tab PO DAILY@0800 07/17/19 [Caltrate-600 With Vit D Tab] Cholecalciferol (Vitamin D3) 2,000 unit PO DAILY 07/17/19 [Vitamin D3] Escitalopram Oxalate 15 mg PO DAILY 07/17/19 Memantine HCl 10 mg PO BID 07/17/19 Omeprazole [Prilosec] 20 mg PO DAILY 07/17/19 Ondansetron HCl [Zofran] 4 mg PO DAILY PRN PRN 07/17/19 Quetiapine Fumarate [Seroquel] 12.5 mg PO DAILY 07/17/19 Vit A/Vit C/Vit E/Zinc/Copper 1 ea PO BID 07/17/19 [Preservision Areds Tablet] Surgical History: no surgical history Smoking Status: Never smoker Tobacco Use: Secondhand Alcohol: None Drugs: None - *Family History Maternal History Items: Cancer Paternal History Items: Heart Disease Review of Systems Unable to obtain accurate/complete ROS d/t: see hpi obtained from daughter Patient Problems: Active and Suspected Problems Dementia (Acute) Depression (Acute) - Physical Exam General: Alert, No apparent distress, Confused HEENT: PERRMOLLY EOMI Neurological: Cranial nerves II-XII grossly intact - ble severe spasticity Vital Signs Temp Pulse Resp BP Pulse Ox 36.9 C 66 16 163/76 H 92 07/18/19 08:20 07/18/19 08:20 07/18/19 08:20 07/18/19 08:20 07/18/19 08:20 Oxygen Delivery Method Room Air Weight: 71.214 kg Body Mass Index (BMI) 23.1 Intake and Output for Last 24 Hours 07/16/19 07/17/19 07/18/19 23:59 23:59 23:59 Intake Total 855 / 855 1161.66 / 1161.66 Output Total 850 / 850 Balance 855 / 5 311.66 / 311.66 Laboratory Tests Past 24 Hrs 07/17/19 07/17/19 07/17/19 12:40 12:40 12:40 WBC 8.7 RBC 4.54 Hgb 13.9 Hct 43.1 MCV 94.9 MCH 30.6 MCHC 32.3 RDW Std Deviation 43.2 RDW Coeff of Michael 12.2 Plt Count 116 L MPV 12.9 H Immature Gran % (Auto) 0.300 Neut % (Auto) 73.9 H Lymph % (Auto) 12.9 L Cannon % (Auto) 10.8 H Eos % (Auto) 1.6 Baso % (Auto) 0.5 Absolute Neuts (auto) 6.4 Absolute Lymphs (auto) 1.12 Nucleated RBC % 0 Sodium 145 Potassium 3.9 Chloride 110 H Carbon Dioxide 27.0 Anion Gap 8 BUN 27 H Creatinine 1.03 H Estim Creat Clear Calc 46.28 Est GFR (MDRD) Af Amer 66 Est GFR (MDRD) Non-Af 55 L BUN/Creatinine Ratio 26.2 H Glucose 103 Calcium 8.8 Total Bilirubin 0.50 AST 11 L ALT 20 Alkaline Phosphatase 45 Troponin I < 0.015 Total Protein 7.2 Albumin 3.4 Globulin 3.8 Albumin/Globulin Ratio 0.9 Vitamin B12 874 TSH Urine Color Urine Clarity Urine pH Ur Specific [place] Urine Protein Urine Glucose (UA) Urine Ketones Urine Occult Blood Urine Nitrite Urine Bilirubin Urine Urobilinogen Ur Leukocyte Esterase Urine RBC Urine WBC Ur Squamous Epith Cells Urine Bacteria Urine Mucus 07/17/19 07/18/19 07/18/19 13:57 06:18 06:18 WBC 6.6 RBC 4.53 Hgb 13.8 Hct 42.4 MCV 93.6 MCH 30.5 MCHC 32.5 RDW Std Deviation 41.7 RDW Coeff of Michael 12.0 Plt Count 101 L MPV 13.1 H Immature Gran % (Auto) 0.200 Neut % (Auto) 67.0 Lymph % (Auto) 19.7 Cannon % (Auto) 9.6 Eos % (Auto) 2.9 Baso % (Auto) 0.6 Absolute Neuts (auto) 4.4 Absolute Lymphs (auto) 1.29 Nucleated RBC % 0 Sodium 144 Potassium 3.7 Chloride 113 H Carbon Dioxide 27.0 Anion Gap 4 L BUN 18 Creatinine 0.67 Estim Creat Clear Calc 47.67 Est GFR (MDRD) Af Amer 109 Est GFR (MDRD) Non-Af 90 BUN/Creatinine Ratio 26.9 H Glucose 81 Calcium 8.4 L Total Bilirubin AST ALT Alkaline Phosphatase Troponin I Total Protein Albumin Globulin Albumin/Globulin Ratio Vitamin B12 TSH 3.32 Urine Color Yellow Urine Clarity Clear Urine pH 6.0 Ur Specific [place] 1.015 Urine Protein Negative Urine Glucose (UA) Normal Urine Ketones Negative Urine Occult Blood Negative Urine Nitrite Negative Urine Bilirubin Negative Urine Urobilinogen Normal Ur Leukocyte Esterase Negative Urine RBC 0 SEEN Urine WBC 0 SEEN Ur Squamous Epith Cells 0 SEEN Urine Bacteria 0 SEEN Urine Mucus 0 SEEN Current Home Med List Medication Instructions Recorded Confirmed Type Atenolol [Tenormin (beta Chato)] 25 mg PO DAILY 08/25/16 07/17/19 History Multivit-Min/FA/Lycopen/Lutein 1 each PO DAILY 08/25/16 07/17/19 History [Adults 50+ Multivitamin Tablet] Oxybutynin Chloride [Ditropan Xl] 10 mg PO DAILY 08/25/16 07/17/19 History Simvastatin [Zocor] 10 mg PO QHS 08/25/16 07/17/19 History Fexofenadine HCl 60 mg PO BID 08/08/18 07/17/19 History Furosemide [Lasix] 20 mg PO BIDLX 08/08/18 07/17/19 History Potassium Chloride [Klor-Con] 20 meq PO DAILY 08/08/18 07/17/19 History Bacillus Coagulans [Digestive 1 ea PO QODAY 07/17/19 07/17/19 History Advantage] Biotin 5 mg PO QODAY 07/17/19 07/17/19 History Calcitonin,[place],Synthetic 1 spray NARES QHS 07/17/19 07/17/19 History [Calcitonin-[place]] Calcium Carb/Vitamin D 1 tab PO DAILY@0800 07/17/19 07/17/19 History [Caltrate-600 With Vit D Tab] Cholecalciferol (Vitamin D3) 2,000 unit PO DAILY 07/17/19 07/17/19 History [Vitamin D3] Escitalopram Oxalate 15 mg PO DAILY 07/17/19 07/17/19 History Memantine HCl 10 mg PO BID 07/17/19 07/17/19 History Omeprazole [Prilosec] 20 mg PO DAILY 07/17/19 07/17/19 History Ondansetron HCl [Zofran] 4 mg PO DAILY PRN PRN 07/17/19 07/17/19 History Quetiapine Fumarate [Seroquel] 12.5 mg PO DAILY 07/17/19 07/17/19 History Vit A/Vit C/Vit E/Zinc/Copper 1 ea PO BID 07/17/19 07/17/19 History [Preservision Areds Tablet] Current Medications Generic Name Dose Route Start Last Admin Trade Name Freq PRN Reason Stop Dose Admin Acetaminophen 650 mg 07/17/19 20:01 07/18/19 10:23 Tylenol RECTAL 650 mg Q6H PRN PRN Administration PAIN Atenolol 25 mg 07/18/19 10:00 Tenormin (Beta Chato) PO DAILY [facility] Atorvastatin Calcium 5 mg 07/17/19 22:00 07/17/19 23:00 Lipitor PO Not Given QHS [facility] Calcitonin [place] 1 spray 07/17/19 22:00 07/17/19 23:21 Miacalcin Nasal [place] NARES Not Given QHS [facility] Calcium/Vitamin D 1 tablet 07/18/19 08:00 Os-Preet 500mg + D PO DAILY@0800 [facility] Cholecalciferol 2,000 unit 07/18/19 10:00 Vitamin D PO DAILY [facility] Escitalopram Oxalate 15 mg 07/18/19 10:00 Lexapro PO DAILY [facility] Sodium Chloride 1,000 mls @ 100 mls/hr 07/17/19 16:53 07/18/19 09:50 IV 100 mls/hr .Q10H [facility] Infusion Sodium Chloride 250 mls @ 15 mls/hr 07/17/19 17:40 IV .[id number] PRN SALINE FLUSH Lactobacillus Acidophilus 1 tablet 07/19/19 10:00 Acidophilus PO QODAY [facility] Loratadine 10 mg 07/18/19 10:00 Claritin PO DAILY [facility] Memantine 10 mg 07/17/19 22:00 07/17/19 23:00 Namenda PO Not Given BID [facility] Multivitamins/Minerals 1 tablet 07/18/19 08:00 Multivitamin With Minerals PO DAILYCM [facility] Ondansetron HCl 4 mg 07/17/19 20:46 Zofran Odt PO DAILY PRN PRN NAUSEA Pantoprazole Sodium 20 mg 07/18/19 10:00 Protonix PO DAILY [facility] Sodium Chloride 10 - 40 ml 07/17/19 17:40 07/17/19 20:36 IV 10 ml UD PRN Administration SALINE FLUSH Assessment/Plan All Active Problems Decubitus ulcer of left buttock, stage 2 (Acute) GERD (gastroesophageal reflux disease) (Acute) Urine incontinence (Acute) Dementia (Acute) Depression (Acute) dementia with superimposed encephalopathy, concerned for underlying cervical stenosis recommend continued evaluation for underlying causes, including ammonia, mri c-spine. history and mri in my opinion are not consistent with NPH
--- NOTE | 2019-07-18 11:15 | MRI_ITS ---
STUDY: MRI CERVICAL SPINE WITHOUT CONTRAST REASON FOR EXAM: Female, 78 years old. Severe spinal stenosis functional decline TECHNIQUE: Standardized fat and water weighted pulse sequences were obtained in the sagittal and axial planes. COMPARISON: [address] FINDINGS: Examination is mildly to moderately degraded, in part due to motion artifact. Transverse pulse sequences are severely degraded. Diagnostic information is available from sagittal pulse sequences. Canal patency is assessable. Foraminal patency cannot be assessed. Paraspinous soft tissues cannot be seen. Craniocervical junction is intact and aligned. There is grade 1 degenerative anterolisthesis of C4 and C5, less than 2 mm. The rest of the spine is aligned. Diffuse marrow is normal. Spinal canal is patent at all levels. Spinal cord is normal in size and in shape likely with normal signal. Signal evaluation is mildly to moderately technically degraded. Appearance is similar to prior. MRI/Spine Cervical (Routine) IMPRESSION: 1. Patent spinal canal, no cervical spinal cord compression. Electronically Signed: Easton Barker, at 16:52 EDT Tel , Service support ,
--- NOTE | 2019-07-18 13:08 | CASEMGMT ---
Addendum entered by Hilda Lockwood 07/18/19 15:57: Pt daughter Jaclyn back in room and SW talked with her about discharge plan. She is agreeable to d/c to [facility] when medically ready and understanding of possible private pay. MAXINE Nelson Addendum entered by Hilda Lockwood 07/18/19 15:49: SW called [facility] and they state they can take pt and they have spoke with pt daughter Jaclyn about private pay. Pt can be discharged to [facility] over the weekend if she is medically ready. SW attempted to meet with dgt and pt however dgt and pt out of room at procedure. HENS 7000 completed and placed on chart. Plan: [facility] Original Note: Social Work Received referral from KIM Nagel. SW met with pt dgts Jaclyn and Catie. They state they are unable to care for pt any longer and vermin exterminator placement is needed. Per family, pt was placed on the waiting list last week at [facility]. [facility] is family's first choice and TCU second. SW explained that if pt does not have three day qualifying hospital stay, pt will be private pay. Family expresses understanding of this. Referral made to [facility]. Leslie stating that they may have a bed available, will review clinical information and let SW know if they can accept. Spoke with Yanel[facility] in TCU and they will not have a bed available until Sunday. SW will await determination from [facility]. MAXINE Nelson
[2019-07-18 14:20] VITALS: BP 150/73; PULSE 70; RESP 16; TEMP 37.1; O2SAT 94
--- NOTE | 2019-07-18 14:37 | PN_ITS ---
Patient Problems: Active and Suspected Problems Dementia (Acute) Depression (Acute) Subjective: Patient was seen and examined. Daughter at the bedside. She is nonverbal. MRI of the brain was done today and was suggestive of NPH. Neurology was consulted; does not think this is NPH. Recommend an MRI of the C-spine. Objective: Physical Exam General: No apparent distress, Confused, Disoriented HEENT: Atraumatic, PERRLA, EOMI, Normocephalic Oral: Dry Mucosa Neck: Supple, No JVD Lungs: Clear to auscultation, Normal air movement, No rhonchi, No wheeze, No rales, Diminished Cardiovascular: Regular rate, Regular Rhythm, Normal S1, Normal S2, No murmurs Abdomen: Soft, Non-Distended, No Hepato-splenomegaly, nontender on exam Extremities: No edema, Capillary Refill Less than 3 Seconds Skin: No rashes, No breakdown Neurological: - - She was not alert enough to participate in any meaningful neurological exam Psych/Mental Status: - - She was not alert enough for mental status or psych exam Vitals/I&O's: Vital Signs Temp Pulse Resp BP Pulse Ox 98.8 F 70 16 150/73 H 94 07/18/19 14:20 07/18/19 14:20 07/18/19 14:20 07/18/19 14:20 07/18/19 14:20 Oxygen Delivery Method Room Air Weight: 71.214 kg Body Mass Index (BMI) 23.1 Intake and Output for Last 24 Hours 07/16/19 07/17/19 07/18/19 23:59 23:59 23:59 Intake Total 855 / 855 1544.99 / 1544.99 Output Total 850 / 850 Balance 855 / 5 694.99 / 694.99 Laboratory Results 07/17/19 12:40: Vitamin B12 874 07/18/19 06:18: WBC 6.6, RBC 4.53, Hgb 13.8, Hct 42.4, MCV 93.6, MCH 30.5, MCHC 32.5, RDW Std Deviation 41.7, RDW Coeff of Michael 12.0, Plt Count 101 L, MPV 13.1 H , Immature Gran % (Auto) 0.200, Neut % (Auto) 67.0, Lymph % (Auto) 19.7, [place] % (Auto) 9.6, Eos % (Auto) 2.9, Baso % (Auto) 0.6, Absolute Neuts (auto) 4.4, Absolute Lymphs (auto) 1.29, Nucleated RBC % 0 07/18/19 06:18: Sodium 144, Potassium 3.7, Chloride 113 H, Carbon Dioxide 27.0, Anion Gap 4 L, BUN 18, Creatinine 0.67, Estim Creat Clear Calc 47.67, Est GFR (MDRD) Af Amer 109, Est GFR (MDRD) Non-Af 90, BUN/Creatinine Ratio 26.9 H, Glucose 81, Calcium 8.4 L, TSH 3.32 Current Medications Acetaminophen (Tylenol) 650 mg RECTAL Q6H PRN PRN PRN Reason: PAIN Last Admin: 07/18/19 10:23 Dose: 650 mg Documented by: Atenolol (Tenormin (Beta Chato)) 25 mg PO DAILY [facility] Atorvastatin Calcium (Lipitor) 5 mg PO QHS [facility] Last Admin: 07/17/19 23:00 Dose: Not Given Documented by: Calcitonin [place] (Miacalcin Nasal [place]) 1 spray NARES QHS [facility] Last Admin: 07/17/19 23:21 Dose: Not Given Documented by: Calcium/Vitamin D (Os-Preet 500mg + D) 1 tablet PO DAILY@0800 [facility] Cholecalciferol (Vitamin D) 2,000 unit PO DAILY [facility] Escitalopram Oxalate (Lexapro) 15 mg PO DAILY [facility] Sodium Chloride () 1,000 mls @ 100 mls/hr IV .Q10H [facility] Last Infusion: 07/18/19 13:40 Dose: 0 mls/hr Documented by: Sodium Chloride () 250 mls @ 15 mls/hr IV .[id number] PRN PRN Reason: SALINE FLUSH Lactobacillus Acidophilus (Acidophilus) 1 tablet PO QODAY [facility] Loratadine (Claritin) 10 mg PO DAILY [facility] Memantine (Namenda) 10 mg PO BID [facility] Last Admin: 07/17/19 23:00 Dose: Not Given Documented by: Multivitamins/Minerals (Multivitamin With Minerals) 1 tablet PO DAILYCM [facility] Ondansetron HCl (Zofran Odt) 4 mg PO DAILY PRN PRN PRN Reason: NAUSEA Pantoprazole Sodium (Protonix) 20 mg PO DAILY [facility] Sodium Chloride () 10 - 40 ml IV UD PRN PRN Reason: SALINE FLUSH Last Admin: 07/17/19 20:36 Dose: 10 ml Documented by: Medical Necessity - Tobacco Use Smoking Status: Never smoker Tobacco Use: Secondhand Assessment/Plan All Active Problems Decubitus ulcer of left buttock, stage 2 (Acute) GERD (gastroesophageal reflux disease) (Acute) Urine incontinence (Acute) Dementia (Acute) Depression (Acute) 1. Progressive dementia, unclear etiology, TSH, B12 negative. CT scan negative. MRI suggestive of NPH, neurology consulted, does not concur Continue on Namenda when patient is 2. Possible cervical stenosis, MRI C-spine ordered, will follow-up on results 3. Hypertension, uncontrolled, will monitor with Hydrallazine prn 4. GERD, on PPI 5. Dysphagia secondary to encephalopathy, patient kept n.p.o. until speech therapy evaluates 6. DVT PPx- Heparin SC Code Visit Inpatient E&M: 34738 Subs Hosp L2
[2019-07-18] MEDS: Atenolol 25 MG Tablet PO (16:32)
--- NOTE | 2019-07-18 16:54 | CASEMGMT ---
ONEIL MOREIRA NOTE: Family questioned OBS status @ admission. ONEIL MOREIRA explained to them that [facility] rules/regulations have been followed. Family provided with [facility] contact information for follow-up. Alexis CONDON RN, CM
[2019-07-18 20:20] VITALS: BP 160/75; PULSE 60; RESP 16; TEMP 36.7; O2SAT 94
[2019-07-18] MEDS: Heparin Injection (Vial) 5,000 UNIT/ML VIAL 5000 UNIT SC (21:47)
[2019-07-19 02:59] VITALS: BP 155/72; PULSE 64; RESP 18; TEMP 36.4; O2SAT 94
[2019-07-19] MEDS: Heparin Injection (Vial) 5,000 UNIT/ML VIAL 5000 UNIT SC ×3 (05:53→21:24)
[2019-07-19] MEDS: Acetaminophen 650 MG Suppository RECTAL (06:36)
[2019-07-19 09:37] VITALS: BP 144/73; PULSE 67; RESP 16; TEMP 36.8; O2SAT 95
[2019-07-19] MEDS: Loratadine 10 MG Tablet PO (09:42)
[2019-07-19] MEDS: Memantine Hydrochloride 10 MG Tablet PO ×2 (09:42→21:25)
[2019-07-19] MEDS: Atenolol 25 MG Tablet PO (09:42)
[2019-07-19] MEDS: Escitalopram Oxalate 10 MG Tablet 15 MG PO (09:42)
--- NOTE | 2019-07-19 10:53 | PN_ITS ---
Patient Problems: Active and Suspected Problems Dementia (Acute) Depression (Acute) Subjective: Patient was seen and examined. She is more awake and alert. Seen sitting the chair. She is alert oriented to herself, but not to place or time. Seen by speech therapy and placed on mechanical soft diet. She denied any complaints. No more pain. Vitals/I&O's: Vital Signs Temp Pulse Resp BP Pulse Ox 98.3 F 67 16 144/73 H 95 07/19/19 09:37 07/19/19 09:37 07/19/19 09:37 07/19/19 09:37 07/19/19 09:37 Oxygen Delivery Method Room Air Weight: 71.214 kg Body Mass Index (BMI) 23.1 Intake and Output for Last 24 Hours 07/17/19 07/18/19 07/19/19 23:59 23:59 23:59 Intake Total 855 / 855 2258.33 / 2258.33 645 / 645 Output Total 850 / 850 Balance 855 / 5 1408.33 / 1408.33 645 / 645 General: Alert, Cooperative, No apparent distress, - - Oriented to person but not place or time HEENT: Atraumatic, PERRLA, EOMI, Normocephalic Oral: Moist Mucosa Neck: Supple Lungs: Clear to auscultation, Normal air movement Cardiovascular: Regular rate, Regular Rhythm, Normal S1, Normal S2, No murmurs Abdomen: Bowel Sounds Present, Soft, Non Tender, Non-Distended, No Hepato- splenomegaly Extremities: No edema Skin: No rashes, No breakdown Musculoskeletal: No Tenderness to Palpation of Joints or Extremities Lymphatic: No Cervical, Supraclavicular, or Inguinal Adenopathy Neurological: Cranial nerves II-XII grossly intact Psych/Mental Status: Normal Affect, Appropriate Current Medications Acetaminophen (Tylenol) 650 mg RECTAL Q6H PRN PRN PRN Reason: PAIN Last Admin: 07/19/19 06:36 Dose: 650 mg Documented by: Atenolol (Tenormin (Beta Chato)) 25 mg PO DAILY [facility] Last Admin: 07/19/19 09:42 Dose: 25 mg Documented by: Atorvastatin Calcium (Lipitor) 5 mg PO QHS [facility] Last Admin: 07/18/19 21:31 Dose: Not Given Documented by: Calcitonin [place] (Miacalcin Nasal [place]) 1 spray NARES QHS [facility] Last Admin: 07/18/19 22:47 Dose: Not Given Documented by: Calcium/Vitamin D (Os-Preet 500mg + D) 1 tablet PO DAILY@0800 [facility] Last Admin: 07/19/19 08:02 Dose: Not Given Documented by: Cholecalciferol (Vitamin D) 2,000 unit PO DAILY [facility] Last Admin: 07/18/19 15:17 Dose: Not Given Documented by: Escitalopram Oxalate (Lexapro) 15 mg PO DAILY [facility] Last Admin: 07/19/19 09:42 Dose: 15 mg Documented by: Heparin Sodium (Porcine) (Heparin Na) 5,000 unit SC Q8 [facility] Last Admin: 07/19/19 05:53 Dose: 5,000 unit Documented by: Hydralazine HCl (Apresoline Iv) 5 mg IV Q4H PRN PRN PRN Reason: hypertension Sodium Chloride () 250 mls @ 15 mls/hr IV .[id number] PRN PRN Reason: SALINE FLUSH Pantoprazole Sodium 40 mg/ (Sodium Chloride) 110 mls @ 330 mls/hr IV Q24 [facility] Last Infusion: 07/19/19 10:05 Dose: Infused Documented by: Dextrose () 1,000 mls @ 50 mls/hr IV .Q20H [facility] Last Infusion: 07/19/19 10:05 Dose: 50 mls/hr Documented by: Lactobacillus Acidophilus (Acidophilus) 1 tablet PO QODAY [facility] Last Admin: 07/19/19 09:42 Dose: 1 tablet Documented by: Loratadine (Claritin) 10 mg PO DAILY [facility] Last Admin: 07/19/19 09:42 Dose: 10 mg Documented by: Memantine (Namenda) 10 mg PO BID [facility] Last Admin: 07/19/19 09:42 Dose: 10 mg Documented by: Multivitamins/Minerals (Multivitamin With Minerals) 1 tablet PO DAILYCM [facility] Last Admin: 07/19/19 08:01 Dose: Not Given Documented by: Ondansetron HCl (Zofran Odt) 4 mg PO DAILY PRN PRN PRN Reason: NAUSEA Sodium Chloride () 10 - 40 ml IV UD PRN PRN Reason: SALINE FLUSH Last Admin: 07/17/19 20:36 Dose: 10 ml Documented by: Medical Necessity - Tobacco Use Smoking Status: Never smoker Tobacco Use: Secondhand Assessment/Plan All Active Problems Decubitus ulcer of left buttock, stage 2 (Acute) GERD (gastroesophageal reflux disease) (Acute) Urine incontinence (Acute) Dementia (Acute) Depression (Acute) 1. Acute metabolic encephalopathy, present on admission, appears much improved, likely medication related vs ELIZABETH History of dementia, unclear etiology, TSH, B12 negative. CT scan negative. MRI suggestive of NPH, neurology consulted, does not concur Patient appears more alert. Likely contributing factor could be the oxybutynin and Seroquel which has since been held Will continue to monitor off these medications. Family would like patient to be discharged to intermediate for long-term placement 2. Acute kidney injury secondary to dehydration, admitting creatinine is 1.03, creatinine today 0.67, improved with IV fluids, encourage oral hydration, trend labs in a.m. 3. Possible cervical stenosis, MRI C-spine showed patent spinal cord, no cervical spinal cord compression 4. Hypertension, better controlled, resumed on atenolol, continue hydralazine as needed 5. GERD, on PPI 6. 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 DVT PPx- Heparin SC Code Visit Inpatient E&M: 98630 Subs Hosp L2
--- NOTE | 2019-07-19 14:10 | CASEMGMT ---
Social Work Patient family requesting to speak with social worker masters. Patient family wanting clarification on whether or not patient is accepted at [facility]. This social worker masters confirming that per social work note patient has been accepted at [facility] and is able to discharge once patient is medically cleared. Patient family wanting patient to stay until three day stay is in but educated that patient needs to qualify medically for a three day stay to occur, patient family voicing understanding. Patient family also stating to believe that patient should have been inpatient for first day of stay at hospital and to be contacting someone about this. This social worker masters offering patient advocate information, patient family declining. Patient family with pleasant affect and appropriate when speaking with this socia worker. Patient family stating to want to advocate for patient mother and see patient mother being taken care of. Patient family confirming to have spoken with [facility] about private pay in the event that patient does not qualify for three day stay. Support provided. Nursing staff updated. Green Sheet on chart. Social work to follow up if any further needs arise. Kumar Blankenship MSW, BRITTANY
[2019-07-19 14:41] VITALS: BP 146/56; PULSE 61; PULSE 80; RESP 16; TEMP 36.4; O2SAT 97
--- NOTE | 2019-07-19 15:04 | PCA ---
PATIENT FAMILY BROUGHT IN POWER OF POULTRY BARN MANAGER AND LIVING WILL PAPERWORK COPIED AND PLACED INTO CHART
[2019-07-19] MEDS: 0.9% NaCl Peripheral Flush Adult/Peds IV (19:01)
[2019-07-19] MEDS: Atorvastatin Calcium 10 MG Tablet 5 MG PO (21:25)
[2019-07-19 21:30] VITALS: BP 141/68; PULSE 68; RESP 16; TEMP 36.8; O2SAT 97
[2019-07-20] VITALS (7 sets, daily range): BP systolic 99–158; BP diastolic 57–79; PULSE 65–82; RESP 16–18; TEMP 36.7–37.1; O2SAT 89–98
--- NOTE | 2019-07-20 01:14 | NURSING ---
PATIENT BLADDER SCANNED FOR 173ML. HAVING FREQUENT URINATION. WILL CONTINUE TO MONITOR.
[2019-07-20] MEDS: Heparin Injection (Vial) 5,000 UNIT/ML VIAL 5000 UNIT SC ×3 (06:04→23:08)
[2019-07-20 06:44] LABS: Absolute Lymphocyte Count 1.96 X10^3/uL (0.83-4.51); Absolute Neutrophil Count 3.9 X10^3/uL (2.0-7.7); Basophil# 0.03 X10^3/uL; Basophil% 0.4 % (0-1); Eosinophil# 0.25 X10^3/uL; Eosinophils% 3.7 % (0-5); Hematocrit 42.7 % (37-47); Hemoglobin 13.8 g/dL (12.0-15.0); Lymphocyte # 1.96 X10^3/ul (4.0); Mean Corp Hgb Conc 32.3 g/dL (32-36); Mean Corpuscular Hgb 29.7 pg (27.0-32.0); Mean Corpuscular Volume 91.8 fL (81-99); Monocyte# 0.57 X10^3/uL; Monocyte% 8.4 % (0-10); NRBC Flagged by Analyzer 0 % (0-5); Neutrophil # 3.94 X10^3/uL (2.7-7.7); Neutrophil % 58.4 % (47-70); Platelet Count 114 K/mm3 (150-450); RBC Distribution Width SD 40.4 fl (35.1-43.9); Red Blood Count 4.65 M/mm3 (4.2-5.4); White Blood Count 6.8 K/mm3 (4.4-11.0)
[2019-07-20 06:47] LABS: Anion Gap 8 (5-15); BUN 20 mg/dL (7-18); BUN/Creat Ratio 23.3 RATIO (10-20); Calcium,Total 8.4 mg/dL (8.5-10.1); Chloride 110 mmol/L (98-107); Creatinine, Serum 0.86 mg/dL (0.55-1.02); EST Glomerular Filtration Rate 68 mL/min (>60); Est Glom Filt Rate - Afr Amer 82 mL/min (>60); Estimated Creatinine Clearance 55.43 ml/min; Glucose 94 mg/dL (74-106); Potassium 3.5 mmol/L (3.5-5.1); Sodium Level 143 mmol/L (136-145)
[2019-07-20] MEDS: Escitalopram Oxalate 10 MG Tablet 15 MG PO (09:09)
[2019-07-20] MEDS: Memantine Hydrochloride 10 MG Tablet PO (09:09)
[2019-07-20] MEDS: Multivitamins,Ther W-Minerals Tablet 1 TABLET PO (09:11)
[2019-07-20] MEDS: Pantoprazole Sodium 20 MG Tablet PO (09:11)
[2019-07-20] MEDS: Atenolol 25 MG Tablet PO (09:11)
[2019-07-20] MEDS: Calcium Carb/Vitamin D 1 TABLET Tablet PO (09:12)
[2019-07-20] MEDS: Loratadine 10 MG Tablet PO (09:12)
[2019-07-20] MEDS: Menthol/Lanolin/Calamine/Znox 113 GM Tube 1 APPLIC TOPICAL ×3 (10:29→22:55)
--- NOTE | 2019-07-20 13:32 | PCM.PN.HOSP ---
Patient Problems: Active and Suspected Problems Dementia (Acute) Depression (Acute) Subjective: Patient was seen and examined. Had episodes of urine incontinence yesterday. No acute events overnight. Patient slept soundly. Daughter who is a nurse practitioner, Bina was at the bedside. She had earlier on asked for oxybutynin to be restarted; discussed the highly anticholinergic properties of oxybutynin and told her I would not recommend restarting medication. She will be referred for BODY ART TECHNICIAN urology evaluation on discharge. Patient denied any new complaints. Denied any fever or chills. She was seen sitting up in bed eating her breakfast. Objective: Physical exam: General: Alert, Cooperative, No apparent distress, - - Oriented to person but not place or time HEENT: Atraumatic, PERRLA, EOMI, Normocephalic Oral: Moist Mucosa Neck: Supple Lungs: Clear to auscultation, Normal air movement Cardiovascular: Regular rate, Regular Rhythm, Normal S1, Normal S2, No murmurs Abdomen: Bowel Sounds Present, Soft, Non Tender, Non-Distended, No Hepato-splenomegaly Extremities: No edema Skin: No rashes, No breakdown Musculoskeletal: No Tenderness to Palpation of Joints or Extremities Lymphatic: No Cervical, Supraclavicular, or Inguinal Adenopathy Neurological: Cranial nerves II-XII grossly intact Psych/Mental Status: Normal Affect, Appropriate Vitals/I&O's: Vital Signs Temp Pulse Resp BP Pulse Ox 98.2 F 80 18 149/68 H 98 07/20/19 09:07 07/20/19 10:08 07/20/19 09:07 07/20/19 09:07 07/20/19 09:07 Oxygen Delivery Method Room Air Weight: 71.214 kg Body Mass Index (BMI) 23.1 Intake and Output for Last 24 Hours 07/18/19 07/19/19 07/20/19 23:59 23:59 23:59 Intake Total 2258.33 / 2258.33 1343.33 / 1763.33 880 / 880 Output Total 850 / 850 500 / 500 200 / 200 Balance 1408.33 / 1408.33 843.33 / 1263.33 680 / 680 Laboratory Results 07/20/19 05:35: WBC 6.8, RBC 4.65, Hgb 13.8, Hct 42.7, MCV 91.8, MCH 29.7, MCHC 32.3, RDW Std Deviation 40.4, RDW Coeff of Michael 12.0, Plt Count 114 L, MPV 13.0 H, Immature Gran % (Auto) 0.100, Neut % (Auto) 58.4, Lymph % (Auto) 29.0, [place] % (Auto) 8.4, Eos % (Auto) 3.7, Baso % (Auto) 0.4, Absolute Neuts (auto) 3.9, Absolute Lymphs (auto) 1.96, Nucleated RBC % 0 07/20/19 05:35: Sodium 143, Potassium 3.5, Chloride 110 H, Carbon Dioxide 25.0, Anion Gap 8, BUN 20 H, Creatinine 0.86, Estim Creat Clear Calc 55.43, Est GFR (MDRD) Af Amer 82, Est GFR (MDRD) Non-Af 68, BUN/Creatinine Ratio 23.3 H, Glucose 94, Calcium 8.4 L Current Medications Atenolol (Tenormin (Beta Chato)) 25 mg PO DAILY REPLACED BY [facility] Last Admin: 07/20/19 09:11 Dose: 25 mg Documented by: Atorvastatin Calcium (Lipitor) 5 mg PO QHS REPLACED BY [facility] Last Admin: 07/19/19 21:25 Dose: 5 mg Documented by: Calamine/Phenol (Calmoseptine Ointment) 1 applic TOPICAL TID REPLACED BY [facility]; Protocol Last Admin: 07/20/19 10:29 Dose: 1 applicatio Documented by: Calcitonin [place] (Miacalcin Nasal [place]) 1 spray NARES QHS REPLACED BY [facility] Last Admin: 07/19/19 21:34 Dose: Not Given Documented by: Calcium/Vitamin D (Os-Preet 500mg + D) 1 tablet PO DAILY@0800 REPLACED BY [facility] Last Admin: 07/20/19 09:12 Dose: 1 tablet Documented by: Cholecalciferol (Vitamin D) 2,000 unit PO DAILY REPLACED BY [facility] Last Admin: 07/20/19 09:09 Dose: 2,000 unit Documented by: Escitalopram Oxalate (Lexapro) 15 mg PO DAILY REPLACED BY [facility] Last Admin: 07/20/19 09:09 Dose: 15 mg Documented by: Heparin Sodium (Porcine) (Heparin Na) 5,000 unit SC Q8 REPLACED BY [facility] Last Admin: 07/20/19 06:04 Dose: 5,000 unit Documented by: Hydralazine HCl (Apresoline Iv) 5 mg IV Q4H PRN PRN PRN Reason: hypertension Sodium Chloride () 250 mls @ 15 mls/hr IV .[id number] PRN PRN Reason: SALINE FLUSH Lactobacillus Acidophilus (Acidophilus) 1 tablet PO QODAY REPLACED BY [facility] Last Admin: 07/20/19 10:39 Dose: Not Given Documented by: Loratadine (Claritin) 10 mg PO DAILY REPLACED BY [facility] Last Admin: 07/20/19 09:12 Dose: 10 mg Documented by: Memantine (Namenda) 10 mg PO BID REPLACED BY [facility] Last Admin: 07/20/19 09:09 Dose: 10 mg Documented by: Multivitamins/Minerals (Multivitamin With Minerals) 1 tablet PO DAILYCM REPLACED BY [facility] Last Admin: 07/20/19 09:11 Dose: 1 tablet Documented by: Nutritional Formula (Lactose Free) (Ensure Enlive) 120 ml PO 4X/DAY REPLACED BY [facility] Last Admin: 07/20/19 09:16 Dose: 120 ml Documented by: Ondansetron HCl (Zofran Odt) 4 mg PO DAILY PRN PRN PRN Reason: NAUSEA Pantoprazole Sodium (Protonix) 20 mg PO DAILY REPLACED BY [facility] Last Admin: 07/20/19 09:11 Dose: 20 mg Documented by: Sodium Chloride () 10 - 40 ml IV UD PRN PRN Reason: SALINE FLUSH Last Admin: 07/19/19 19:01 Dose: 10 ml Documented by: Medical Necessity - Tobacco Use Smoking Status: Never smoker Tobacco Use: Secondhand Assessment/Plan All Active Problems Decubitus ulcer of left buttock, stage 2 (Acute) GERD (gastroesophageal reflux disease) (Acute) Urine incontinence (Acute) Dementia (Acute) Depression (Acute) Summary of CARE/off service note: Day 3 of hospital stay 78-year-old female with past medical history of dementia, unclear etiology. who was admitted on 07/17/19 with progressive confusion and lethargy. Her work-up so far has been unremarkable. MRI of the brain showed NPH. Neurology consulted, does not think patient has NPH. Her oxybutynin and Seroquel were held. Patient was remarkably improved the next day after her admission. 1. Acute metabolic encephalopathy, present on admission, improved Likely medication-related vs ELIZABETH, likely contributing factor could be the oxybutynin and Seroquel which has since been held History of dementia, unclear etiology, TSH, B12 are negative. CT scan negative. MRI suggestive of NPH, neurology consulted, does not concur Will continue to monitor off these medications. Family would like patient to be discharged to half-way for long-term placement 2. Acute kidney injury secondary to dehydration, admitting creatinine is 1.03, creatinine remains improved, Cr 0.86 encourage oral hydration, trend labs in a.m. 3. Urine incontinence, mixed, patient also has episodes of urine retention Plan: Continue off oxybutynin, will need referral to BODY ART TECHNICIAN urology at discharge 4. Cervical stenosis ruled out from negative MRI 4. Hypertension, better controlled, on atenolol, continue hydralazine as needed 5. GERD, on PPI 6. 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 DVT PPx- Heparin SC Code Visit Inpatient E&M: 95456 Subs Hosp L2
[2019-07-20] MEDS: Acetaminophen 325 MG Tablet 650 MG PO (16:55)
[2019-07-20] MEDS: Tamsulosin HCl 0.4 MG Capsule PO (17:15)
[2019-07-20] MEDS: 0.9% NaCl Peripheral Flush Adult/Peds IV (22:51)
[2019-07-20] MEDS: Dextrose 5%/0.9% NaCl 1,000 ML 75 ML IV (23:08)
[2019-07-21] VITALS (8 sets, daily range): BP systolic 155–171; BP diastolic 68–81; PULSE 65–88; RESP 16–18; TEMP 36.3–37.2; O2SAT 93–96
[2019-07-21] MEDS: Heparin Injection (Vial) 5,000 UNIT/ML VIAL 5000 UNIT SC ×3 (04:41→22:14)
[2019-07-21] MEDS: Menthol/Lanolin/Calamine/Znox 113 GM Tube 1 APPLIC TOPICAL ×4 (04:43→22:13)
[2019-07-21] MEDS: Atenolol 25 MG Tablet PO (08:48)
[2019-07-21] MEDS: Pantoprazole Sodium 20 MG Tablet PO (08:55)
[2019-07-21] MEDS: Memantine Hydrochloride 10 MG Tablet PO (08:56)
[2019-07-21] MEDS: Escitalopram Oxalate 10 MG Tablet 15 MG PO (08:56)
[2019-07-21] MEDS: Loratadine 10 MG Tablet PO (08:56)
--- NOTE | 2019-07-21 11:17 | CASEMGMT ---
Addendum entered by Maggie Qiu 07/21/19 15:08: Green sheet, transportation form and HENS on pt's chart. Addendum entered by Maggie Qiu 07/21/19 12:32: KATHERINE met with pt and pt's daughters Jaclyn and Priscila present in room. Per advanced directives pt's daughter Bina is HCPOA. KATHERINE updated Jaclyn and Priscila that [facility] is able to accept pt once pt is medically cleared and pt does have qualifying stay under Medicare for SNF. Jaclyn and Priscila state understanding. SW did place a call to pt's daughter Bina who is HCPOA and updated her that pt is able to discharge to [facility] whenever medically cleared and pt does have qualifying stay under Medicare. Bina state understanding. Plan: [facility] today Original Note: Social Work Note Per previous notes, pt's family would like pt to go to [facility] at discharge. Pt does have qualifying stay for Medicare to pay for SNF. KATHERINE received message from Leslie at [facility] asking for updated clinicals and if pt will be discharged today. KATHERINE spoke with physician. Per physician urology has been consulted and pt can discharge today if urology gives the ok. KATHERINE faxed updated clinicals to [facility]. KATHERINE placed a call to Leslie at [facility] and left her a message regarding referral and that pt may be discharged today pending urology. Plan: [facility] today Maggie Qiu SIZE STAMPER, NETWORK OPERATIONS CENTER TECHNICIAN
[2019-07-21] MEDS: Dextrose 5%/0.9% NaCl 1,000 ML 999 ML IV (12:02)
[2019-07-21] MEDS: Dextrose 5%/0.9% NaCl 1,000 ML 125 ML IV ×2 (12:33→20:45)
--- NOTE | 2019-07-21 12:41 | PN_ITS ---
Patient Problems: Active and Suspected Problems Dementia (Acute) Depression (Acute) Subjective: Patient seen and examined. She still remains lethargic and weak. She didnt really answer any questions, so unable to do comprehensive review of systems. PEr her nurse, patient has had poor urine output overnight. Catheter was flushed at hospitalist;s request, but was still not draining urine. Labs and vitals reviewed. Vitals/I&O's: Vital Signs Temp Pulse Resp BP Pulse Ox 98.6 F 76 18 169/81 H 96 07/21/19 08:28 07/21/19 08:28 07/21/19 08:28 07/21/19 08:28 07/21/19 08:54 Oxygen Flow Rate (L/min) 3 Oxygen Delivery Method Room Air Weight: 157 lb Body Mass Index (BMI) 23.1 Intake and Output for Last 24 Hours 07/19/19 07/20/19 07/21/19 23:59 23:59 23:59 Intake Total 1343.33 / 1763.33 880 / 880 1542.85 / 1542.85 Output Total 500 / 500 200 / 220 30 / 30 Balance 843.33 / 1263.33 680 / 660 1512.85 / 1512.85 General: Alert, No apparent distress, Lethargic HEENT: Atraumatic, PERRLA, EOMI, Normocephalic Oral: Dry Mucosa Neck: Supple, No JVD, Negative Carotid Bruits Lungs: Clear to auscultation, Normal air movement, No rhonchi, No wheeze Cardiovascular: Regular rate, Regular Rhythm, Normal S1, Normal S2, No murmurs Abdomen: Bowel Sounds Present, Soft, Non Tender, Non-Distended, No Hepato- splenomegaly Extremities: No clubbing, No cyanosis, No edema, Capillary Refill Less than 3 Seconds Skin: No rashes, No breakdown Musculoskeletal: No Tenderness to Palpation of Joints or Extremities Lymphatic: No Cervical, Supraclavicular, or Inguinal Adenopathy Neurological: Cranial nerves II-XII grossly intact, Neuro grossly intact, Motor Exam 5/5 strength throughout Psych/Mental Status: Normal Affect, Appropriate, Alert and oriented to time, place, person, mood and affect Current Medications Acetaminophen (Tylenol) 650 mg PO Q6H PRN PRN PRN Reason: PAIN Last Admin: 07/20/19 16:55 Dose: 650 mg Documented by: Atenolol (Tenormin (Beta Chato)) 25 mg PO DAILY [facility] Last Admin: 07/21/19 08:48 Dose: 25 mg Documented by: Atorvastatin Calcium (Lipitor) 5 mg PO QHS [facility] Last Admin: 07/20/19 22:56 Dose: Not Given Documented by: Calamine/Phenol (Calmoseptine Ointment) 1 applic TOPICAL TID [facility]; Protocol Last Admin: 07/21/19 08:48 Dose: 1 applicatio Documented by: Calcitonin [place] (Miacalcin Nasal [place]) 1 spray NARES QHS [facility] Last Admin: 07/20/19 22:56 Dose: Not Given Documented by: Calcium/Vitamin D (Os-Preet 500mg + D) 1 tablet PO DAILY@0800 [facility] Last Admin: 07/21/19 10:08 Dose: Not Given Documented by: Cholecalciferol (Vitamin D) 2,000 unit PO DAILY [facility] Last Admin: 07/21/19 09:12 Dose: 2,000 unit Documented by: Escitalopram Oxalate (Lexapro) 15 mg PO DAILY [facility] Last Admin: 07/21/19 08:56 Dose: 15 mg Documented by: Heparin Sodium (Porcine) (Heparin Na) 5,000 unit SC Q8 [facility] Last Admin: 07/21/19 04:41 Dose: 5,000 unit Documented by: Hydralazine HCl (Apresoline Iv) 5 mg IV Q4H PRN PRN PRN Reason: hypertension Sodium Chloride () 250 mls @ 15 mls/hr IV .[id number] PRN PRN Reason: SALINE FLUSH Dextrose/Sodium Chloride (Dextrose 5%/0.9% Nacl) 1,000 mls @ 125 mls/hr IV .Q8H [facility] Last Admin: 07/21/19 12:33 Dose: 125 mls/hr Documented by: Lactobacillus Acidophilus (Acidophilus) 1 tablet PO QODAY [facility] Last Admin: 07/21/19 08:55 Dose: 1 tablet Documented by: Loratadine (Claritin) 10 mg PO DAILY [facility] Last Admin: 07/21/19 08:56 Dose: 10 mg Documented by: Memantine (Namenda) 10 mg PO BID [facility] Last Admin: 07/21/19 08:56 Dose: 10 mg Documented by: Multivitamins/Minerals (Multivitamin With Minerals) 1 tablet PO DAILYCM [facility] Last Admin: 07/21/19 10:08 Dose: Not Given Documented by: Nutritional Formula (Lactose Free) (Ensure Enlive) 120 ml PO 4X/DAY [facility] Last Admin: 07/21/19 10:09 Dose: Not Given Documented by: Ondansetron HCl (Zofran Odt) 4 mg PO DAILY PRN PRN PRN Reason: NAUSEA Pantoprazole Sodium (Protonix) 20 mg PO DAILY [facility] Last Admin: 07/21/19 08:55 Dose: 20 mg Documented by: Sodium Chloride () 10 - 40 ml IV UD PRN PRN Reason: SALINE FLUSH Last Admin: 07/20/19 22:51 Dose: 10 ml Documented by: Tamsulosin HCl (Flomax) 0.4 mg PO DAILY@1730 [facility] Last Admin: 07/20/19 17:15 Dose: 0.4 mg Documented by: Medical Necessity - Tobacco Use Smoking Status: Never smoker Tobacco Use: Secondhand Assessment/Plan All Active Problems Decubitus ulcer of left buttock, stage 2 (Acute) GERD (gastroesophageal reflux disease) (Acute) Urine incontinence (Acute) Dementia (Acute) Depression (Acute) 1. Acute metabolic encephalopathy due to medications and uremia from ELIZABETH * improved. Patient is still lethargic * CT of the head was negative; MRI of hte brain suggested NPH, but neurology didnt agree with these findings. * TSH, vitamin B12 were WNL * seroquel and oxybutinin on hold * 2. Urine incontinence * has episodes of urine retention as well. * urology consulted; will await rec's * catheter in place; urine output is minimal today * will give IVF NS and monitor urine output * started on flomax yesterday. Will hold flomax for now * 3. ELIZABETH due to dehydration * resolved. 4. Hypertension: Fairly controlled. On atenolol. Hydralazine PRN. 5. Dysphagia: Speech therapy on board. Mechanical soft diet 6. GERD: on PPI DVT prophylaxis: heparin Disposition: awaiting placement Code Visit Inpatient E&M: 49951 [facility] Hosp L2
[2019-07-21] MEDS: Acetaminophen 650 MG Suppository RECTAL (13:50)
--- NOTE | 2019-07-21 15:48 | CHAPLAIN ---
Type of Pastoral Visit _x__ Initial Visit ___ Follow-up Visit ___ On-call Visit ___ General Patient Visit ___ Spiritual Assessment ___ Family Conference ___ Bereavement ___ Rapid Response ___ Code Blue ___ Other (describe below) Pastoral Care Referral From _x__ Patient ___ Family ___ Nurse ___ Physician ___ Airplane Pilot Chief ___ Kayak Maker ___ Other (describe below) Sacrament/Intervention _x__ Active listening ___ Anointing ___ Taoism ___ Bereavement ___ Communion _x__ Lilia exploration ___ _x__ Life review _x__ Prayer ___ Reconciliation ___ Sacrament of Sick _x__ Supportive presence ___ Wedding ___ Other (describe below) Pastoral Comments daughter is with patient; daughter gives background of situation and pt affirms the description; pt seeks spiritual support and prayer; pt has had a rapid decline in her health according to daughter; pt used to be member of a [employer] synagogue but has not been to synagogue in a long time;
--- NOTE | 2019-07-21 15:55 | PCM.CONS.GEN ---
Problem List (1) Urine incontinence Status: Acute Reason for Consult Date of Consultation: 07/21/19 Reason for Consultation: Urinary incontinence History of Present Illness: The patient is a 78 year old F [who is admitted with increasing dementia and issues with mental status. She had improved post admission day 1 and 2 and has now lost those improvements. The history is obtained from the chart and from the patient's daughter who is at bedside. The patient has been on oxybutynin for years for her urinary incontinence. She has been recently treated for a urinary tract infection. The plan will be to discharge to rehab if the able.] Past Medical History Past Medical History (Chronic Problems): Chronic Problems Hypertension (Chronic) Allergies nitrofurantoin macrocrystalline [From Macrodantin] Allergy (Verified 08/25/16 15:17) Unknown phenazopyridine HCl [From Azo] Allergy (Verified 08/25/16 15:17) Unknown Sulfa (Sulfonamide Antibiotics) Allergy (Verified 08/25/16 15:17) Swelling bacitracin [From Neosporin ([id number])] Adverse Reaction (Verified 08/25/16 15:17) Rash neomycin [From Neosporin ([id number])] Adverse Reaction (Verified 08/25/16 15:17) Rash polymyxin B [From Neosporin ([id number])] Adverse Reaction (Verified 08/25/16 15:17) Rash Home Medications: Ambulatory Orders Medication Instructions Recorded Atenolol [Tenormin (beta Chato)] 25 mg PO DAILY 08/25/16 Multivit-Min/FA/Lycopen/Lutein 1 each PO DAILY 08/25/16 [Adults 50+ Multivitamin Tablet] Oxybutynin Chloride [Ditropan Xl] 10 mg PO DAILY 08/25/16 Simvastatin [Zocor] 10 mg PO QHS 08/25/16 Fexofenadine HCl 60 mg PO BID 08/08/18 Furosemide [Lasix] 20 mg PO BIDLX 08/08/18 Potassium Chloride [Klor-Con] 20 meq PO DAILY 08/08/18 Bacillus Coagulans [Digestive 1 ea PO QODAY 07/17/19 Advantage] Biotin 5 mg PO QODAY 07/17/19 Calcitonin,[place],Synthetic 1 spray NARES QHS 07/17/19 [Calcitonin-[place]] Calcium Carb/Vitamin D 1 tab PO DAILY@0800 07/17/19 [Caltrate-600 With Vit D Tab] Cholecalciferol (Vitamin D3) 2,000 unit PO DAILY 07/17/19 [Vitamin D3] Escitalopram Oxalate 15 mg PO DAILY 07/17/19 Memantine HCl 10 mg PO BID 07/17/19 Omeprazole [Prilosec] 20 mg PO DAILY 07/17/19 Ondansetron HCl [Zofran] 4 mg PO DAILY PRN PRN 07/17/19 Quetiapine Fumarate [Seroquel] 12.5 mg PO DAILY 07/17/19 Vit A/Vit C/Vit E/Zinc/Copper 1 ea PO BID 07/17/19 [Preservision Areds Tablet] Surgical History: no surgical history Smoking Status: Never smoker Tobacco Use: Secondhand Alcohol: None Drugs: None - *Family History Maternal History Items: Cancer Paternal History Items: Heart Disease Review of Systems Constitutional: Reports: - - Difficulty swallowing, not responsive to questions, not oriented Gastrointestinal: Reports: - - Not eating, not swallowing well, question of abdominal pain Genitourinary: Reports: Incontinence Musculoskeletal: Reports: - - Not ambulatory at present Skin: Reports: Wounds - Decubitus ulcer Neurological: Reports: Confusion, Difficulty swallowing Patient Problems: Active and Suspected Problems Dementia (Acute) Depression (Acute) - Physical Exam General: Confused, - - The patient is lying in bed with her eyes closed and not communicative HEENT: Atraumatic, Normocephalic Neck: Trachea Midline Lungs: Normal air movement Cardiovascular: Regular rate Abdomen: Soft Skin: Ulcer/ Wound Comment: Bladder scan post void residuals have been documented at 173cc Vital Signs Temp Pulse Resp BP Pulse Ox 98.6 F 76 18 169/81 H 96 07/21/19 08:28 07/21/19 08:28 07/21/19 08:28 07/21/19 08:28 07/21/19 08:54 Oxygen Flow Rate (L/min) 3 Oxygen Delivery Method Room Air Weight: 71.214 kg Body Mass Index (BMI) 23.1 Intake and Output for Last 24 Hours 07/19/19 07/20/19 07/21/19 23:59 23:59 23:59 Intake Total 1343.33 / 1763.33 880 / 880 1542.85 / 1542.85 Output Total 500 / 500 200 / 220 30 / 30 Balance 843.33 / 1263.33 680 / 660 1512.85 / 1512.85 Assessment/Plan All Active Problems Decubitus ulcer of left buttock, stage 2 (Acute) GERD (gastroesophageal reflux disease) (Acute) Urine incontinence (Acute) Dementia (Acute) Depression (Acute) At a postvoid residual of 173 cc I would not recommend Flomax. I do not feel this is significant enough to warrant treatment for urinary retention. It is more likely that she is having increased residuals due to her mental status, voiding in supine position, etc. I discussed with the daughter that this will be a difficult situation secondary to the mental status concerns. She also has a decubitus ulcer which is of concern with her urinary incontinence. If the family decides to treat her incontinence due to the wound, we can resume anticholinergics but I would not recommend oxybutynin. Toviaz 4 mg would be a better choice secondary to it not crossing the blood-brain barrier. Will still have the same side effects of dry mouth and constipation which may be an issue as well. I feel the best option at present would be to avoid medications until mental status either improves, or doesn't, determine what her goals for treatment will be and then proceed with treatment. I will be available and have given my phone number to the family.
[2019-07-21] MEDS: hydrALAZINE 20 MG/ML Vial 5 MG IV (16:31)
--- NOTE | 2019-07-21 23:10 | RAD_ITS ---
STUDY: X-RAY CHEST REASON FOR EXAM: Female, 78 years old. Increased secretions TECHNIQUE: Single AP portable view of the chest. COMPARISON: Prior study of 07/17/2019 FINDINGS: The lungs are clear and expanded. There is no demonstrated pleural abnormality. Normal size heart. There are calcified left hilar/mediastinal nodes. Normal visualized pulmonary arteries. Normal visualized aortic arch and descending thoracic aorta. Normal visualized thoracic spine. Normal visualized ribs, clavicles, and shoulders. There are multiple surgical clips in the upper mid abdomen. RAD/Chest 1 View (Portable) IMPRESSION: Calcified left hilar/mediastinal nodes. Multiple surgical clips noted in the mid upper abdomen. No acute cardiopulmonary disease process is seen. Chest findings are stable in the interval. Electronically Signed: True Armando MD at 23:27 EDT , Service support ,
[2019-07-22 02:32] VITALS: BP 118/66; PULSE 71; RESP 14; TEMP 36.9; O2SAT 94
[2019-07-22] MEDS: Dextrose 5%/0.9% NaCl 1,000 ML 125 ML IV (04:38)
[2019-07-22] MEDS: Heparin Injection (Vial) 5,000 UNIT/ML VIAL 5000 UNIT SC (05:34)
[2019-07-22] MEDS: Menthol/Lanolin/Calamine/Znox 113 GM Tube 1 APPLIC TOPICAL ×2 (05:35→15:21)
[2019-07-22 05:52] LABS: Absolute Lymphocyte Count 1.41 X10^3/uL (0.83-4.51); Absolute Neutrophil Count 3.2 X10^3/uL (2.0-7.7); Basophil# 0.03 X10^3/uL; Basophil% 0.6 % (0-1); Eosinophil# 0.22 X10^3/uL; Eosinophils% 4.1 % (0-5); Hemoglobin 13.2 g/dL (12.0-15.0); Lymphocyte # 1.41 X10^3/ul (4.0); Lymphocyte % 26.3 % (19-41); Mean Corp Hgb Conc 32.2 g/dL (32-36); Mean Corpuscular Hgb 30.1 pg (27.0-32.0); Mean Corpuscular Volume 93.6 fL (81-99); Monocyte# 0.48 X10^3/uL; Monocyte% 8.9 % (0-10); NRBC Flagged by Analyzer 0 % (0-5); Neutrophil # 3.22 X10^3/uL (2.7-7.7); Neutrophil % 59.9 % (47-70); Platelet Count 102 K/mm3 (150-450); RBC Distribution Width SD 41.7 fl (35.1-43.9); Red Blood Count 4.38 M/mm3 (4.2-5.4); White Blood Count 5.4 K/mm3 (4.4-11.0)
[2019-07-22 06:15] LABS: Anion Gap 5 (5-15); BUN 8 mg/dL (7-18); Calcium,Total 7.9 mg/dL (8.5-10.1); Chloride 115 mmol/L (98-107); Creatinine, Serum 0.67 mg/dL (0.55-1.02); EST Glomerular Filtration Rate 90 mL/min (>60); Est Glom Filt Rate - Afr Amer 109 mL/min (>60); Estimated Creatinine Clearance 47.67 ml/min; Glucose 114 mg/dL (74-106); Sodium Level 146 mmol/L (136-145)
[2019-07-22 07:17] VITALS: O2SAT 95
[2019-07-22 08:17] LABS: Magnesium 1.6 mg/dL (1.6-2.6)
[2019-07-22] MEDS: Calcium Carb/Vitamin D 1 TABLET Tablet PO (09:06)
[2019-07-22] MEDS: Escitalopram Oxalate 10 MG Tablet 15 MG PO (09:06)
[2019-07-22] MEDS: Loratadine 10 MG Tablet PO (09:06)
[2019-07-22] MEDS: Multivitamins,Ther W-Minerals Tablet 1 TABLET PO (09:06)
[2019-07-22] MEDS: Atenolol 25 MG Tablet PO (09:07)
[2019-07-22] MEDS: Memantine Hydrochloride 10 MG Tablet PO (09:07)
[2019-07-22] MEDS: Pantoprazole Sodium 20 MG Tablet PO (09:08)
[2019-07-22] MEDS: Acetaminophen 325 MG Tablet 650 MG PO (09:15)
[2019-07-22 09:16] VITALS: BP 148/75; PULSE 69; RESP 18; TEMP 36.6; O2SAT 96
--- NOTE | 2019-07-22 09:39 | TREXTCAR_ITS ---
- Diet 07/19/19 09:01 Diet: Regular Diet Food consistency:: Mechanical Soft/Ground Liquid Consistency:: Regular/Thin Is pt able to select menu?: No Diet Comments: Supervision by staff / family; medications whole w/ purees. - Routine Orders/Code Status Enema Type: Fleetz Enema Frequency: Daily PRN Suppository Type: Dulcolax 10mg Suppository Frequency: Daily PRN O2 Frequency: PRN Keep PO Greater than or Equal to (%): 92 Code Status: [facility] - Wound(s) RIGHT BUTTOX Wound Type: Stasis Ulcer - Therapies Weight Bearing: Weight bearing as tolerated Physical Therapy: Eval and Treat Occupational Therapy: Eval and Treat - Allergies/Procedures Done in Hospital Allergies/Adverse Reactions: Allergies nitrofurantoin macrocrystalline [From Macrodantin] Allergy (Verified 08/25/16 15:17) Unknown phenazopyridine HCl [From Azo] Allergy (Verified 08/25/16 15:17) Unknown Sulfa (Sulfonamide Antibiotics) Allergy (Verified 08/25/16 15:17) Swelling bacitracin [From Neosporin ([id number])] Adverse Reaction (Verified 08/25/16 15:17) Rash neomycin [From Neosporin ([id number])] Adverse Reaction (Verified 08/25/16 15:17) Rash polymyxin B [From Neosporin ([id number])] Adverse Reaction (Verified 08/25/16 15:17) Rash Procedures: None - Type of Care/Length of Stay Estimated LOS: More Than 30 Days Type of Care Needed: Skilled Rehab Potential: Fair Prognosis: Fair - Additional Orders/Day of Discharge Day of Discharge: 07/22/19 - Dietary and Speech Recommendations Dietitian Recommendations/Changes: When medically appropriate, recommend a r egular diet with modifications from [employer]. Will provide ONS bid when diet resumes - Follow Up Care Primary Care Physician: Arik Rey MD [Primary Care Provider] - Please follow up with your Primary Care Physician in: one week Please Follow Up With: Naz Caba MD When: one week
--- NOTE | 2019-07-22 09:42 | PCM.DC.SUM ---
Discharge Date and Diagnosis - Problem List Patient Problems: Active and Suspected Problems Dementia (Acute) Depression (Acute) Date of Admission: 07/17/19 Date of Discharge: 07/22/19 - Primary Discharge Diagnosis Active and Suspected Problems acute metabolic encephalopathy due to medications ELIZABETH dysphagia urine incontinence - Secondary Discharge Diagnosis Chronic Problems Hypertension (Chronic) Hospital Course and Treatment Imaging Results: Diagnostic Data Abdomen/Pelvis CT 07/17/19 12:58 IMPRESSION: Status post left nephrectomy. Sigmoid diverticulosis. Electronically Signed: Tyler Mcdonough, at 13:53 EDT , Service support , Brain MRI 07/18/19 05:55 IMPRESSION: No acute intracranial abnormality. Findings suggestive of NPH in the appropriate clinical setting. Electronically Signed: Guilherme Montes MD at 9:50 EDT Tel , Service support , Cervical Spine MRI 07/18/19 11:15 IMPRESSION: 1. Patent spinal canal, no cervical spinal cord compression. Electronically Signed: Easton Barker, at 16:52 EDT Tel , Service support , Chest X-Ray 07/21/19 23:10 IMPRESSION: Calcified left hilar/mediastinal nodes. Multiple surgical clips noted in the mid upper abdomen. No acute cardiopulmonary disease process is seen. Chest findings are stable in the interval. Electronically Signed: True Armando MD at 23:27 EDT , Service support , neurology- Dr Valderrama Operations: None Procedures: None Summary of Care Provided: The patient is a 78 year old F with a PMH as listed. She was admitted on 07/17/19 with a complaint of worsening dementia. Patient was admitted from home a history was taken from her daughters. According to patient's daughter, she had had a significant decline over the past 3 weeks was lethargic and not eating very well. She had been started on Seroquel on account of sundowning. Review of systems otherwise negative. She had had a CT scan of the brain on outpatient basis about 9 days prior to admission which was negative for any normal pressure hydrocephalus. Urine was negative for UTI. She was admitted and managed for acute metabolic encephalopathy possibly due to medication induced as well as worsening dementia and depression. Her Seroquel was discontinued. Patient had also been on oxybutynin for urine retention and this was discontinued. Patient's mentation did improve subsequently. Neurology was consulted on account of MRI of the brain done on admission which was suggestive of NPH. However neurology did not think that his symptoms and the features of the MRI was commensurate with NPH. Patient also started having dysphagia and so she was kept n.p.o. for speech therapy evaluation. She was subsequently started on mechanical soft diet which she tolerated. Of note, MRI of the cervical spine done due to suspicion for possible cervical stenosis was negative for any stenosis or cord compression. She is to follow-up with her primary care doctor and neurology as well as urology. Urology was consulted on account of episodic urine retention. However they advised against starting a continuing Flomax and also resuming oxybutynin. Patient remained stable and was discharged to long-term on 07/22/2019. Seroquel and oxybutynin were discontinued at time of discharge., Potassium was also low on the day of discharge and was successfully replaced. Patient seen and examined prior to discharge. She was much more alert today and communicative and had no problems. She was eating breakfast at time of review. Review of systems otherwise negative. Labs and vitals reviewed. Home medication reviewed and reconciled. o/e: [] Vital Signs Height 5 ft 9 in Weight: 157 lb Weight in Pounds 157.0 lbs Pulse Ox 96 Temperature 97.8 F Pulse Rate 69 Respiratory Rate 18 Blood Pressure [BP] 155/77 Blood Pressure 148/75 Blood Pressure Position [BP] Semi-Fowlers Blood Pressure Position Semi-Fowlers General: Alert, No apparent distress HEENT: Atraumatic, PERRLA, EOMI, Normocephalic Oral: Dry Mucosa Neck: Supple, No JVD, Negative Carotid Bruits Lungs: Clear to auscultation, Normal air movement, No rhonchi, No wheeze Cardiovascular: Regular rate, Regular Rhythm, Normal S1, Normal S2, No murmurs Abdomen: Bowel Sounds Present, Soft, Non Tender, Non-Distended, No Hepato-splenomegaly Extremities: No clubbing, No cyanosis, No edema, Capillary Refill Less than 3 Seconds Skin: No rashes, No breakdown Musculoskeletal: No Tenderness to Palpation of Joints or Extremities Lymphatic: No Cervical, Supraclavicular, or Inguinal Adenopathy Neurological: Cranial nerves II-XII grossly intact, Neuro grossly intact, Motor Exam 5/5 strength throughout Psych/Mental Status: Normal Affect, Appropriate, Alert and oriented to time, place, person, mood and affect Plan as above Patient Problems: Active and Suspected Problems Dementia (Acute) Depression (Acute) - Physical Exam Vital Signs Temp Pulse Resp BP Pulse Ox 97.8 F 69 18 148/75 H 96 07/22/19 09:16 07/22/19 09:16 07/22/19 09:16 07/22/19 09:16 07/22/19 09:16 Oxygen Flow Rate (L/min) 3 Oxygen Delivery Method Room Air Weight: 157 lb Body Mass Index (BMI) 23.1 Intake and Output for Last 24 Hours 07/20/19 07/21/19 07/22/19 23:59 23:59 23:59 Intake Total 880 / 880 2542.85 / 2542.85 1185.42 / 1185.42 Output Total 200 / 220 830 / 830 700 / 700 Balance 680 / 660 1712.85 / 1712.85 485.42 / 485.42 Laboratory Tests Past 24 Hrs 07/22/19 07/22/19 07/22/19 05:22 05:22 05:22 WBC 5.4 RBC 4.38 Hgb 13.2 Hct 41.0 MCV 93.6 MCH 30.1 MCHC 32.2 RDW Std Deviation 41.7 RDW Coeff of Michael 12.0 Plt Count 102 L MPV 13.0 H Immature Gran % (Auto) 0.200 Neut % (Auto) 59.9 Lymph % (Auto) 26.3 Dewitt % (Auto) 8.9 Eos % (Auto) 4.1 Baso % (Auto) 0.6 Absolute Neuts (auto) 3.2 Absolute Lymphs (auto) 1.41 Nucleated RBC % 0 Sodium 146 H Potassium 3.0 L Chloride 115 H Carbon Dioxide 26.0 Anion Gap 5 BUN 8 Creatinine 0.67 Estim Creat Clear Calc 47.67 Est GFR (MDRD) Af Amer 109 Est GFR (MDRD) Non-Af 90 BUN/Creatinine Ratio 12.0 Glucose 114 H Calcium 7.9 L Magnesium 1.6 Discharge Diet: - - mechanical soft diet Weight Bearing Status: Weight bearing as tolerated Call your doctor if you observe: Fever of 101 or Higher, - - confusion Home Medications: Medications to take at Discharge Atenolol [Tenormin (beta shaheen)] 25 mg PO DAILY 08/25/16 Multivit-Min/FA/Lycopen/Lutein [Adults 50 Plus Multivitamin Tb] 1 each PO DAILY 08/25/16 Simvastatin [Zocor] 10 mg PO QHS 08/25/16 Fexofenadine HCl 60 mg PO BID 08/08/18 Furosemide [Lasix] 20 mg PO BIDLX 08/08/18 Potassium Chloride [Klor-Con] 20 meq PO DAILY 08/08/18 Bacillus Coagulans [Digestive Advantage] 1 ea PO QODAY 07/17/19 Biotin 5 mg PO QODAY 07/17/19 Calcitonin,[place],Synthetic [Calcitonin-[place]] 1 spray NARES QHS 07/17/19 Calcium Carb/Vitamin D [Caltrate-600 With Vit D Tab] 1 tab PO DAILY@0800 07/17/19 Cholecalciferol (Vitamin D3) [Vitamin D3] 2,000 unit PO DAILY 07/17/19 Escitalopram Oxalate 15 mg PO DAILY 07/17/19 Memantine HCl 10 mg PO BID 07/17/19 Omeprazole [Prilosec] 20 mg PO DAILY 07/17/19 Ondansetron HCl [Zofran] 4 mg PO DAILY PRN PRN 07/17/19 Vit A/Vit C/Vit E/Zinc/Copper [Preservision Areds Tablet] 1 ea PO BID 07/17/19 Primary Care Physician: Arik Rey MD [Primary Care Provider] - Please follow up with your Primary Care Physician in: one week Please Follow Up With: Naz Caba MD When: one week Disposition: Nursing Home facility Minutes spent on discharge:: 45 Patient Condition:: Stable Medical Necessity - Tobacco Use Smoking Status: Never smoker Tobacco Use: Secondhand Meaningful Use Info Meaningful Use Diagnoses (Choose all that apply): None applicable Code Visit Inpatient E&M: 70660 Disch Hosp
--- NOTE | 2019-07-22 11:20 | CASEMGMT ---
Addendum entered by Maggie Qiu 07/22/19 11:48: KATHERINE faxed completed discharge paperwork to Leslie at [facility] including transfer to extended care facility, signed medication list, and any scripts. Original in SNF folder and copy on pt's chart. Pt's [facility]escent [facility] was completed over the weekend. KATHERINE placed original [facility] in pt's SNF folder and copy on pt's chart. KATHERINE called [facility] and earliest they are able to transport is 8:00pm. KATHERINE called [facility] and the earliest they can transport is 4:00pm. KATHERINE arranged transportation via cot through [facility] for 4:00pm. Transportation form on SNF folder and copy on pt's chart. KATHERINE updated pt's daughter Priscila who is present at [facility] on transportation time. KATHERINE placed a call to pt's CHERRI Curran and left her a message updating her on pt's discharge and transportation time. KATHERINE placed a call to Leslie at [facility] and left her a message updating her on transportation time. KATHERINE informed Leslie that per Speech therapy, pt will need to continue having speech therapy at [facility] and order for Speech is in pt's SNF folder. Plan: [facility] today skilled with [facility] transporting via cot at 4:00pm MAXINE Howell Original Note: Social Work Note Pt is discharging to [facility] skilled today. SW in to update pt and pt's daughter Priscila present in room. KATHERINE updated Jaclyn that physician is discharging pt to [facility] today. Jaclyn states transportation time can be arranged at any time and she will call her sister Jaclyn who is financial POA who will meet pt at [facility] to discuss financials. KATHERINE has all discharge paperwork except signed medication list and any scripts. KATHERINE tubed medication list to physician to sign. KATHERINE will fax completed discharge paperwork to [facility] once completed. KATHERINE placed a call to Leslie at [facility] and updated her that pt will be discharged today. Plan: [facility] skilled today MAXINE Howell
--- NOTE | 2019-07-22 13:31 | NURSING ---
Call placed to [facility], attempted to give report, no nurse answered, messaged left to call [facility]
--- NOTE | 2019-07-22 15:10 | NURSING ---
call placed to [facility] report given to nurse whom will be taking over care for this patient
[2019-07-22 15:13] VITALS: BP 164/92; PULSE 63; RESP 18; TEMP 36.9; O2SAT 95
== END 2019-07-22 16:15 | disposition skilled nursing facility (03) | DRG 92 ==
LOC: ED 13:55 → MS3 16:28
PROVIDERS: Internal Medicine; Admitting Provider Family Medicine; Emergency Provider Emergency Medicine; Family Provider Family Medicine; PCP Family Medicine; Referring Provider Family Medicine; Visit Provider Student in an Organized Health Care Education/Training Program
DX: G92 Toxic encephalopathy (principal); N17.9 Acute kidney failure, unspecified; I10 Essential (primary) hypertension; E86.0 Dehydration; R13.10 Dysphagia, unspecified; F03.90 Unspecified dementia, unspecified severity, without behavioral disturbance, psychotic disturbance, mood disturbance, and anxiety; R33.9 Retention of urine, unspecified; N39.46 Mixed incontinence; T43.595A Adverse effect of other antipsychotics and neuroleptics, initial encounter; E78.5 Hyperlipidemia, unspecified
CPT/HCPCS: 36415; 70551; 71045; 72141; 74176; 80048; 80053; 81001; 82607; 83735; 84443; 84484; 85025; 92526; 92610; 93005; 97162; 97166; 97530; 97802; 99285; J7030; P9612; A4216

== ENCOUNTER → 2019-08-23 14:59 | Outpatient (REF) | payer MEDICARE, OTHER, SELFPAY ==
[2019-08-24 08:45] LABS: Color, Urine Yellow (Yellow); Glucose, Dipstick Normal (Normal); Ketone-Dipstick Negative (Negative); Leukocyte Esterase-Dipstick 500 /ul (Negative); Nitrite-Dipstick Negative (Negative); Occult Blood-Urine 150 /ul (Negative); Protein-Dipstick 100 mg/dl (Negative); Urine Bilirubin Dipstick Negative (Negative); Urine Clarity Turbid (Clear); Urine Urobilinogen Normal (Normal)
== END ==
LOC: OLS.WHLTCC 14:59
PROVIDERS: Visit Provider Family Medicine
DX: G93.41 Metabolic encephalopathy (principal); F03.91 Unspecified dementia, unspecified severity, with behavioral disturbance; R13.12 Dysphagia, oropharyngeal phase; R13.19 Other dysphagia; N17.9 Acute kidney failure, unspecified; L89.322 Pressure ulcer of left buttock, stage 2; N39.0 Urinary tract infection, site not specified
CPT/HCPCS: 81002; 87077; 87086; 87088; 87186

== ENCOUNTER → 2019-09-01 05:00 | Outpatient (REF) | payer MEDICARE, OTHER, SELFPAY ==
[2019-09-01 08:04] LABS: Hemoglobin 13.1 g/dL (12.0-15.0); Mean Corpuscular Hgb 29.6 pg (27.0-32.0); Mean Corpuscular Volume 92.6 fL (81-99); Mean Platelet Vol. 12.7 fl (6.2-12.0); Platelet Count 149 K/mm3 (150-450); RBC Distribution Width CV 12.4 % (11.6-14.6); RBC Distribution Width SD 42.5 fl (35.1-43.9); Red Blood Count 4.43 M/mm3 (4.2-5.4); White Blood Count 4.5 K/mm3 (4.4-11.0)
[2019-09-01 08:21] LABS: Anion Gap 7 (5-15); BUN 10 mg/dL (7-18); BUN/Creat Ratio 11.8 RATIO (10-20); Calcium,Total 8.9 mg/dL (8.5-10.1); Chloride 108 mmol/L (98-107); Creatinine, Serum 0.85 mg/dL (0.55-1.02); EST Glomerular Filtration Rate 69 mL/min (>60); Est Glom Filt Rate - Afr Amer 83 mL/min (>60); Glucose 76 mg/dL (74-106); Potassium 3.9 mmol/L (3.5-5.1); Sodium Level 145 mmol/L (136-145)
== END ==
LOC: OLS.WHLTCC 05:00
PROVIDERS: Visit Provider Family Medicine
DX: I10 Essential (primary) hypertension (principal); G93.41 Metabolic encephalopathy; F03.91 Unspecified dementia, unspecified severity, with behavioral disturbance; R13.19 Other dysphagia; R13.12 Dysphagia, oropharyngeal phase; N17.9 Acute kidney failure, unspecified; L89.322 Pressure ulcer of left buttock, stage 2
CPT/HCPCS: 36415; 80048; 85027

== ENCOUNTER → 2019-09-22 05:00 | Outpatient (REF) | payer MEDICARE, OTHER, SELFPAY ==
[2019-09-22 08:40] LABS: Hematocrit 43.4 % (37-47); Hemoglobin 13.7 g/dL (12.0-15.0); Mean Corp Hgb Conc 31.6 g/dL (32-36); Mean Platelet Vol. 12.6 fl (6.2-12.0); Platelet Count 156 K/mm3 (150-450); RBC Distribution Width CV 12.8 % (11.6-14.6); RBC Distribution Width SD 44.3 fl (35.1-43.9); Red Blood Count 4.57 M/mm3 (4.2-5.4); White Blood Count 5.7 K/mm3 (4.4-11.0)
[2019-09-22 08:49] LABS: Anion Gap 5 (5-15); BUN 10 mg/dL (7-18); Calcium,Total 8.7 mg/dL (8.5-10.1); Chloride 107 mmol/L (98-107); Creatinine, Serum 0.91 mg/dL (0.55-1.02); EST Glomerular Filtration Rate 64 mL/min (>60); Est Glom Filt Rate - Afr Amer 77 mL/min (>60); Glucose 90 mg/dL (74-106); Sodium Level 143 mmol/L (136-145)
== END ==
LOC: OLS.WHLTSB 05:00
PROVIDERS: Visit Provider Family Medicine
DX: I10 Essential (primary) hypertension (principal); G93.41 Metabolic encephalopathy; F03.91 Unspecified dementia, unspecified severity, with behavioral disturbance; R13.19 Other dysphagia; R13.12 Dysphagia, oropharyngeal phase; N17.9 Acute kidney failure, unspecified; R48.8 Other symbolic dysfunctions
CPT/HCPCS: 36415; 80048; 85027

== ENCOUNTER → 2019-10-20 05:00 | Outpatient (REF) | payer MEDICARE, OTHER, SELFPAY ==
[2019-10-20 06:06] LABS: Hematocrit 38.4 % (37-47); Hemoglobin 12.1 g/dL (12.0-15.0); Mean Corp Hgb Conc 31.5 g/dL (32-36); Mean Corpuscular Hgb 29.7 pg (27.0-32.0); Mean Corpuscular Volume 94.3 fL (81-99); Mean Platelet Vol. 12.3 fl (6.2-12.0); Platelet Count 140 K/mm3 (150-450); RBC Distribution Width CV 12.3 % (11.6-14.6); RBC Distribution Width SD 42.8 fl (35.1-43.9); Red Blood Count 4.07 M/mm3 (4.2-5.4); White Blood Count 4.4 K/mm3 (4.4-11.0)
[2019-10-20 06:33] LABS: Anion Gap 2 (5-15); BUN 14 mg/dL (7-18); BUN/Creat Ratio 15.8 RATIO (10-20); Calcium,Total 8.5 mg/dL (8.5-10.1); Chloride 108 mmol/L (98-107); Creatinine, Serum 0.88 mg/dL (0.55-1.02); EST Glomerular Filtration Rate 65 mL/min (>60); Est Glom Filt Rate - Afr Amer 79 mL/min (>60); Glucose 80 mg/dL (74-106); Sodium Level 143 mmol/L (136-145)
== END ==
LOC: OLS.WHLTSB 05:00
PROVIDERS: Family Provider Family Medicine; PCP Family Medicine; Visit Provider Family Medicine
DX: I10 Essential (primary) hypertension (principal); G93.41 Metabolic encephalopathy; F03.91 Unspecified dementia, unspecified severity, with behavioral disturbance; R13.19 Other dysphagia; R13.12 Dysphagia, oropharyngeal phase; N17.9 Acute kidney failure, unspecified; R48.8 Other symbolic dysfunctions
CPT/HCPCS: 36415; 80048; 85027

== ENCOUNTER → 2019-11-17 05:00 | Outpatient (REF) | payer MEDICARE, OTHER, SELFPAY ==
[2019-11-17 09:12] LABS: Hematocrit 40.6 % (37-47); Hemoglobin 13.3 g/dL (12.0-15.0); Mean Corp Hgb Conc 32.8 g/dL (32-36); Mean Corpuscular Hgb 30.6 pg (27.0-32.0); Mean Corpuscular Volume 93.3 fL (81-99); Mean Platelet Vol. 12.9 fl (6.2-12.0); Platelet Count 117 K/mm3 (150-450); RBC Distribution Width CV 11.9 % (11.6-14.6); RBC Distribution Width SD 40.6 fl (35.1-43.9); Red Blood Count 4.35 M/mm3 (4.2-5.4); White Blood Count 5.6 K/mm3 (4.4-11.0)
[2019-11-17 09:38] LABS: BUN 17 mg/dL (7-18); Creatinine, Serum 0.94 mg/dL (0.55-1.02); Glucose 96 mg/dL (74-106)
[2019-11-17 09:39] LABS: Anion Gap 6 (5-15); BUN/Creat Ratio 18.2 RATIO (10-20); Calcium,Total 9.1 mg/dL (8.5-10.1); Chloride 105 mmol/L (98-107); EST Glomerular Filtration Rate 61 mL/min (>60); Est Glom Filt Rate - Afr Amer 74 mL/min (>60); Potassium 3.8 mmol/L (3.5-5.1); Sodium Level 136 mmol/L (136-145)
== END ==
LOC: OLS.WHLTSB 05:00
PROVIDERS: PCP Family Medicine; Visit Provider Family Medicine
DX: I10 Essential (primary) hypertension (principal); G93.41 Metabolic encephalopathy; F03.91 Unspecified dementia, unspecified severity, with behavioral disturbance; R13.19 Other dysphagia; R13.12 Dysphagia, oropharyngeal phase; N17.9 Acute kidney failure, unspecified; R48.8 Other symbolic dysfunctions
CPT/HCPCS: 36415; 80048; 85027

== ENCOUNTER → 2019-11-19 05:00 | Outpatient (REF) | payer SELFPAY | LOC: OLS.WHLTSB 05:00 | PROVIDERS: PCP Family Medicine; Visit Provider Family Medicine | DX: G93.41 Metabolic encephalopathy (principal); F03.91 Unspecified dementia, unspecified severity, with behavioral disturbance; R13.19 Other dysphagia; R13.12 Dysphagia, oropharyngeal phase; N17.9 Acute kidney failure, unspecified; R48.8 Other symbolic dysfunctions; R50.9 Fever, unspecified ==

== ENCOUNTER → 2019-11-19 07:58 | Outpatient (REF) | payer MEDICARE, OTHER, SELFPAY ==
[2019-11-20 08:06] LABS: Color, Urine Yellow (Yellow); Glucose, Dipstick Normal (Normal); Ketone-Dipstick Negative (Negative); Leukocyte Esterase-Dipstick 100 /ul (Negative); Nitrite-Dipstick Positive (Negative); Occult Blood-Urine 50 /ul (Negative); Protein-Dipstick Negative (Negative); Urine Bilirubin Dipstick Negative (Negative); Urine Clarity Sl. Cloudy (Clear); Urine Urobilinogen Normal (Normal)
== END ==
LOC: OLS.WHLTSB 07:58
PROVIDERS: PCP Family Medicine; Visit Provider Family Medicine
DX: G93.41 Metabolic encephalopathy (principal); F03.91 Unspecified dementia, unspecified severity, with behavioral disturbance; R13.19 Other dysphagia; R13.12 Dysphagia, oropharyngeal phase; B17.9 Acute viral hepatitis, unspecified; R48.8 Other symbolic dysfunctions; N32.81 Overactive bladder; R50.9 Fever, unspecified
CPT/HCPCS: 81002; 87086; 87088; 87186; 87633

== ENCOUNTER → 2019-12-15 04:00 | Outpatient (REF) | payer MEDICARE, OTHER, SELFPAY ==
[2019-12-15 09:46] LABS: Hematocrit 39.5 % (37-47); Hemoglobin 12.8 g/dL (12.0-15.0); Mean Corp Hgb Conc 32.4 g/dL (32-36); Mean Corpuscular Hgb 30.2 pg (27.0-32.0); Mean Corpuscular Volume 93.2 fL (81-99); Mean Platelet Vol. 12.8 fl (6.2-12.0); Platelet Count 129 K/mm3 (150-450); RBC Distribution Width CV 12.2 % (11.6-14.6); RBC Distribution Width SD 41.7 fl (35.1-43.9); Red Blood Count 4.24 M/mm3 (4.2-5.4); White Blood Count 5.6 K/mm3 (4.4-11.0)
[2019-12-15 10:08] LABS: Anion Gap 5 (5-15); BUN 20 mg/dL (7-18); Calcium,Total 8.9 mg/dL (8.5-10.1); Chloride 108 mmol/L (98-107); Creatinine, Serum 0.83 mg/dL (0.55-1.02); EST Glomerular Filtration Rate 70 mL/min (>60); Est Glom Filt Rate - Afr Amer 85 mL/min (>60); Glucose 86 mg/dL (74-106); Potassium 3.8 mmol/L (3.5-5.1); Sodium Level 142 mmol/L (136-145)
== END ==
LOC: OLS.WHLTSB 04:00
PROVIDERS: PCP Family Medicine; Visit Provider Family Medicine
DX: I10 Essential (primary) hypertension (principal); G93.41 Metabolic encephalopathy; F03.91 Unspecified dementia, unspecified severity, with behavioral disturbance; R13.19 Other dysphagia; R13.12 Dysphagia, oropharyngeal phase; N17.9 Acute kidney failure, unspecified; R48.8 Other symbolic dysfunctions
CPT/HCPCS: 36415; 80048; 85027

== ENCOUNTER → 2020-03-15 05:00 | Outpatient (REF) | payer MEDICARE, OTHER, SELFPAY ==
[2020-03-15 08:03] LABS: Hemoglobin 12.5 g/dL (12.0-15.0); Mean Corp Hgb Conc 32.1 g/dL (32-36); Mean Corpuscular Hgb 29.8 pg (27.0-32.0); Mean Corpuscular Volume 93.1 fL (81-99); Mean Platelet Vol. 12.5 fl (6.2-12.0); Platelet Count 145 K/mm3 (150-450); RBC Distribution Width CV 12.8 % (11.6-14.6); RBC Distribution Width SD 43.6 fl (35.1-43.9); Red Blood Count 4.19 M/mm3 (4.2-5.4); White Blood Count 5.8 K/mm3 (4.4-11.0)
[2020-03-15 08:22] LABS: Anion Gap 5 (5-15); BUN 14 mg/dL (7-18); Calcium,Total 8.8 mg/dL (8.5-10.1); Chloride 111 mmol/L (98-107); Creatinine, Serum 0.82 mg/dL (0.55-1.02); EST Glomerular Filtration Rate 71 mL/min (>60); Est Glom Filt Rate - Afr Amer 86 mL/min (>60); Glucose 80 mg/dL (74-106); Potassium 3.7 mmol/L (3.5-5.1); Sodium Level 144 mmol/L (136-145)
== END ==
LOC: OLS.WHLTSB 05:00
PROVIDERS: PCP Family Medicine; Visit Provider Family Medicine
DX: I10 Essential (primary) hypertension (principal); G93.41 Metabolic encephalopathy; F03.91 Unspecified dementia, unspecified severity, with behavioral disturbance; R13.19 Other dysphagia; R13.12 Dysphagia, oropharyngeal phase; N17.9 Acute kidney failure, unspecified; R48.8 Other symbolic dysfunctions
CPT/HCPCS: 36415; 80048; 85027

== ENCOUNTER → 2020-06-14 04:00 | Outpatient (REF) | payer MEDICARE, OTHER, SELFPAY ==
[2020-06-14 06:57] LABS: Hematocrit 38.4 % (37-47); Hemoglobin 12.3 g/dL (12.0-15.0); Mean Corpuscular Hgb 30.3 pg (27.0-32.0); Mean Corpuscular Volume 94.6 fL (81-99); Mean Platelet Vol. 12.5 fl (6.2-12.0); Platelet Count 147 K/mm3 (150-450); RBC Distribution Width CV 12.3 % (11.6-14.6); RBC Distribution Width SD 42.9 fl (35.1-43.9); Red Blood Count 4.06 M/mm3 (4.2-5.4); White Blood Count 5.4 K/mm3 (4.4-11.0)
[2020-06-14 07:24] LABS: Anion Gap 6 (5-15); BUN 16 mg/dL (7-18); BUN/Creat Ratio 18.7 RATIO (10-20); Calcium,Total 8.7 mg/dL (8.5-10.1); Chloride 110 mmol/L (98-107); Creatinine, Serum 0.86 mg/dL (0.55-1.02); EST Glomerular Filtration Rate 68 mL/min (>60); Est Glom Filt Rate - Afr Amer 82 mL/min (>60); Glucose 80 mg/dL (74-106); Potassium 3.6 mmol/L (3.5-5.1); Sodium Level 143 mmol/L (136-145)
== END ==
LOC: OLS.WHLTSB 04:00
PROVIDERS: PCP Family Medicine; Visit Provider Family Medicine
DX: I12.9 Hypertensive chronic kidney disease with stage 1 through stage 4 chronic kidney disease, or unspecified chronic kidney disease (principal); G93.41 Metabolic encephalopathy; F03.91 Unspecified dementia, unspecified severity, with behavioral disturbance; R13.19 Other dysphagia; R13.12 Dysphagia, oropharyngeal phase; N17.9 Acute kidney failure, unspecified; R48.8 Other symbolic dysfunctions
CPT/HCPCS: 36415; 80048; 85027

== ENCOUNTER → 2020-09-13 04:00 | Outpatient (REF) | payer MEDICARE, OTHER, SELFPAY ==
[2020-09-13 07:37] LABS: Hematocrit 40.2 % (37-47); Hemoglobin 12.6 g/dL (12.0-15.0); Mean Corp Hgb Conc 31.3 g/dL (32-36); Mean Corpuscular Hgb 29.2 pg (27.0-32.0); Mean Corpuscular Volume 93.3 fL (81-99); Mean Platelet Vol. 12.6 fl (6.2-12.0); Platelet Count 147 K/mm3 (150-450); RBC Distribution Width CV 12.1 % (11.6-14.6); RBC Distribution Width SD 42.3 fl (35.1-43.9); Red Blood Count 4.31 M/mm3 (4.2-5.4); White Blood Count 5.2 K/mm3 (4.4-11.0)
[2020-09-13 07:58] LABS: Anion Gap 5 (5-15); BUN 10 mg/dL (7-18); BUN/Creat Ratio 12.6 RATIO (10-20); Calcium,Total 8.6 mg/dL (8.5-10.1); Chloride 109 mmol/L (98-107); Creatinine, Serum 0.79 mg/dL (0.55-1.02); EST Glomerular Filtration Rate 74 mL/min (>60); Est Glom Filt Rate - Afr Amer 89 mL/min (>60); Glucose 75 mg/dL (74-106); Potassium 3.5 mmol/L (3.5-5.1); Sodium Level 142 mmol/L (136-145)
== END ==
LOC: OLS.WHLTSB 04:00
PROVIDERS: PCP Family Medicine; Referring Provider Family Medicine; Visit Provider Family Medicine
DX: I10 Essential (primary) hypertension (principal)
CPT/HCPCS: 36415; 80048; 85027

== ENCOUNTER → 2020-09-18 16:35 | Outpatient (REF) | payer MEDICARE, OTHER, SELFPAY | LOC: OLS.WHLTSB 16:35 | PROVIDERS: PCP Family Medicine; Referring Provider Family Medicine; Visit Provider Family Medicine | DX: Z03.818 Encounter for observation for suspected exposure to other biological agents ruled out (principal) | CPT/HCPCS: 87635; U0003 ==

== ENCOUNTER → 2020-09-18 22:55 | Outpatient (REF) | payer MEDICARE, OTHER, SELFPAY ==
[2020-09-19 09:52] LABS: Color, Urine Yellow (Yellow); Glucose, Dipstick Normal (Normal); Ketone-Dipstick Negative (Negative); Leukocyte Esterase-Dipstick 500 /ul (Negative); Nitrite-Dipstick Positive (Negative); Occult Blood-Urine 150 /ul (Negative); Protein-Dipstick 30 mg/dl (Negative); Urine Bilirubin Dipstick Negative (Negative); Urine Clarity Cloudy (Clear); Urine Urobilinogen Normal (Normal)
== END ==
LOC: OLS.WHLTSB 22:55
PROVIDERS: PCP Family Medicine; Referring Provider Family Medicine; Visit Provider Family Medicine
DX: Z03.818 Encounter for observation for suspected exposure to other biological agents ruled out (principal); G93.41 Metabolic encephalopathy; N39.0 Urinary tract infection, site not specified; F03.91 Unspecified dementia, unspecified severity, with behavioral disturbance; R13.19 Other dysphagia; R13.12 Dysphagia, oropharyngeal phase; N17.9 Acute kidney failure, unspecified; R48.8 Other symbolic dysfunctions
CPT/HCPCS: 81002; 87077; 87086; 87088; 87186; 87635; U0003

== ENCOUNTER → 2020-10-26 06:00 | Outpatient (REF) | payer MEDICARE, OTHER, SELFPAY ==
[2020-10-26 07:25] LABS: Hematocrit 41.7 % (37-47); Hemoglobin 12.4 g/dL (12.0-15.0); Mean Corp Hgb Conc 29.7 g/dL (32-36); Mean Corpuscular Hgb 29.1 pg (27.0-32.0); Mean Corpuscular Volume 97.9 fL (81-99); Mean Platelet Vol. 11.8 fl (6.2-12.0); Platelet Count 308 K/mm3 (150-450); RBC Distribution Width CV 13.2 % (11.6-14.6); RBC Distribution Width SD 47.1 fl (35.1-43.9); Red Blood Count 4.26 M/mm3 (4.2-5.4); White Blood Count 17.9 K/mm3 (4.4-11.0)
[2020-10-26 07:56] LABS: ALB/GLOB Ratio 0.5 RATIO (0.9-2.4); AST(SGOT) 14 U/L (15-37); Alanine Aminotransfer ALT/SGPT 66 U/L (13-56); Albumin, Serum 2.4 g/dL (3.2-5.0); Alkaline Phosphatase 90 U/L (45-117); Anion Gap 3 (5-15); BUN 34 mg/dL (7-18); BUN/Creat Ratio 31.2 RATIO (10-20); Calcium,Total 9.3 mg/dL (8.5-10.1); Chloride 123 mmol/L (98-107); Creatinine, Serum 1.09 mg/dL (0.55-1.02); EST Glomerular Filtration Rate 51 mL/min (>60); Est Glom Filt Rate - Afr Amer 62 mL/min (>60); Globulin 4.7 g/dL (2.2-4.2); Glucose 112 mg/dL (74-106); Potassium 4.2 mmol/L (3.5-5.1); Protein, Total 7.1 g/dL (6.4-8.2); Sodium Level 156 mmol/L (136-145); Thyroid Stim Hormone (TSH) 1.12 uIU/mL (0.358-3.74)
== END ==
LOC: OLS.WHLTSB 06:00
PROVIDERS: PCP Family Medicine; Referring Provider Family Medicine; Visit Provider Family Medicine
DX: I10 Essential (primary) hypertension (principal); G93.41 Metabolic encephalopathy; F03.91 Unspecified dementia, unspecified severity, with behavioral disturbance; R13.19 Other dysphagia; R13.12 Dysphagia, oropharyngeal phase; N17.9 Acute kidney failure, unspecified; R48.8 Other symbolic dysfunctions
CPT/HCPCS: 36415; 80053; 84443; 85027

== ENCOUNTER → 2021-03-14 05:00 | Outpatient (REF) | payer MEDICARE, OTHER, SELFPAY ==
[2021-03-14 07:24] LABS: Hemoglobin 12.5 g/dL (12.0-15.0); Mean Corp Hgb Conc 31.3 g/dL (32-36); Mean Corpuscular Hgb 28.7 pg (27.0-32.0); Mean Corpuscular Volume 91.7 fL (81-99); Mean Platelet Vol. 13.3 fl (6.2-12.0); Platelet Count 114 K/mm3 (150-450); RBC Distribution Width CV 13.2 % (11.6-14.6); RBC Distribution Width SD 44.9 fl (35.1-43.9); Red Blood Count 4.36 M/mm3 (4.2-5.4); White Blood Count 4.4 K/mm3 (4.4-11.0)
[2021-03-14 07:32] LABS: Anion Gap 3 (5-15); BUN 28 mg/dL (7-18); BUN/Creat Ratio 39.1 RATIO (10-20); Calcium,Total 8.8 mg/dL (8.5-10.1); Chloride 111 mmol/L (98-107); Creatinine, Serum 0.72 mg/dL (0.55-1.02); EST Glomerular Filtration Rate 83 mL/min (>60); Est Glom Filt Rate - Afr Amer 101 mL/min (>60); Glucose 74 mg/dL (74-106); Potassium 3.9 mmol/L (3.5-5.1); Sodium Level 142 mmol/L (136-145)
== END ==
LOC: OLS.WHLTSB 05:00
PROVIDERS: PCP Family Medicine; Visit Provider Family Medicine
DX: I10 Essential (primary) hypertension (principal)
CPT/HCPCS: 36415; 80048; 85027

== ENCOUNTER → 2021-09-12 04:00 | Outpatient (REF) | payer MEDICARE, OTHER, SELFPAY ==
[2021-09-12 06:44] LABS: Hematocrit 42.2 % (37-47); Hemoglobin 13.4 g/dL (12.0-15.0); Mean Corp Hgb Conc 31.8 g/dL (32-36); Mean Corpuscular Hgb 29.3 pg (27.0-32.0); Mean Corpuscular Volume 92.1 fL (81-99); Mean Platelet Vol. 13.2 fl (6.2-12.0); Platelet Count 142 K/mm3 (150-450); RBC Distribution Width CV 12.3 % (11.6-14.6); RBC Distribution Width SD 41.9 fl (35.1-43.9); Red Blood Count 4.58 M/mm3 (4.2-5.4); White Blood Count 5.5 K/mm3 (4.4-11.0)
[2021-09-12 07:14] LABS: Anion Gap 4 (5-15); BUN 22 mg/dL (7-18); BUN/Creat Ratio 28.3 RATIO (10-20); Chloride 108 mmol/L (98-107); Creatinine, Serum 0.78 mg/dL (0.55-1.02); EST Glomerular Filtration Rate 75 mL/min (>60); Est Glom Filt Rate - Afr Amer 91 mL/min (>60); Glucose 70 mg/dL (74-106); Potassium 4.4 mmol/L (3.5-5.1); Sodium Level 138 mmol/L (136-145)
== END ==
LOC: OLS.WHLTSB 04:00
PROVIDERS: PCP Family Medicine; Visit Provider Family Medicine
DX: I10 Essential (primary) hypertension (principal)
CPT/HCPCS: 36415; 80048; 85027

== ENCOUNTER → 2022-03-13 | Outpatient (REF) | payer SELFPAY ==
[2022-03-13 09:05] LABS: Absolute Lymphocyte Count 2.16 X10^3/uL (0.83-4.51); Absolute Neutrophil Count 2.9 X10^3/uL (2.0-7.7); Basophil# 0.03 X10^3/uL; Basophil% 0.5 % (0-1); Eosinophil# 0.15 X10^3/uL; Eosinophils% 2.6 % (0-5); Hematocrit 44.2 % (37-47); Hemoglobin 13.9 g/dL (12.0-15.0); Lymphocyte # 2.16 X10^3/ul (0.83-4.51); Lymphocyte % 37.6 % (19-41); Mean Corp Hgb Conc 31.4 g/dL (32-36); Mean Corpuscular Hgb 29.3 pg (27.0-32.0); Mean Corpuscular Volume 93.1 fL (81-99); Mean Platelet Vol. 14.2 fl (6.2-12.0); Monocyte# 0.49 X10^3/uL; Monocyte% 8.5 % (0-10); NRBC Flagged by Analyzer 0 % (0-5); Neutrophil % 50.6 % (47-70); Platelet Count 147 K/mm3 (150-450); RBC Distribution Width CV 12.2 % (11.6-14.6); Red Blood Count 4.75 M/mm3 (4.2-5.4); White Blood Count 5.7 K/mm3 (4.4-11.0)
[2022-03-13 09:27] LABS: Anion Gap 8 (5-15); BUN 14 mg/dL (7-18); BUN/Creat Ratio 20.7 RATIO (10-20); Calcium,Total 9.1 mg/dL (8.5-10.1); Chloride 108 mmol/L (98-107); Creatinine, Serum 0.68 mg/dL (0.55-1.02); EST Glomerular Filtration Rate 89 mL/min (>60); Est Glom Filt Rate - Afr Amer 107 mL/min (>60); Glucose 85 mg/dL (74-106); Potassium 4.1 mmol/L (3.5-5.1); Sodium Level 141 mmol/L (136-145)
== END | disposition home or self-care (01) ==
LOC: OLS.WHLCAR 05:00
PROVIDERS: PCP Family Medicine; Referring Provider Family Medicine; Visit Provider Family Medicine
DX: I10 Essential (primary) hypertension (principal); F03.91 Unspecified dementia, unspecified severity, with behavioral disturbance; J18.9 Pneumonia, unspecified organism; E86.0 Dehydration; R13.11 Dysphagia, oral phase
CPT/HCPCS: 36415; 80048; 85025

== ENCOUNTER → 2022-09-18 | Outpatient (REF) | payer MEDICARE, OTHER, SELFPAY ==
[2022-09-18 07:54] LABS: Hematocrit 44.4 % (37-47); Hemoglobin 14.1 g/dL (12.0-15.0); Mean Corp Hgb Conc 31.8 g/dL (32-36); Mean Corpuscular Hgb 29.8 pg (27.0-32.0); Mean Corpuscular Volume 93.9 fL (81-99); Platelet Count 130 K/mm3 (150-450); RBC Distribution Width CV 12.3 % (11.6-14.6); RBC Distribution Width SD 42.7 fl (35.1-43.9); Red Blood Count 4.73 M/mm3 (4.2-5.4); White Blood Count 7.4 K/mm3 (4.4-11.0)
[2022-09-18 08:12] LABS: Anion Gap 5 (5-15); BUN 17 mg/dL (7-18); BUN/Creat Ratio 24.6 RATIO (10-20); Calcium,Total 9.3 mg/dL (8.5-10.1); Chloride 110 mmol/L (98-107); Creatinine, Serum 0.69 mg/dL (0.55-1.02); EST Glomerular Filtration Rate 86 mL/min (>60); Est Glom Filt Rate - Afr Amer 104 mL/min (>60); Glucose 76 mg/dL (74-106); Potassium 4.2 mmol/L (3.5-5.1); Sodium Level 142 mmol/L (136-145)
== END ==
LOC: OLS.WHLCAR 05:00
PROVIDERS: PCP Family Medicine; Visit Provider Family Medicine
DX: I10 Essential (primary) hypertension (principal); R13.11 Dysphagia, oral phase; J18.9 Pneumonia, unspecified organism; E86.0 Dehydration; F03.918 Unspecified dementia, unspecified severity, with other behavioral disturbance; R48.8 Other symbolic dysfunctions
CPT/HCPCS: 36415; 80048; 85027

== ENCOUNTER → 2023-03-12 | Outpatient (REF) | payer MEDICARE, OTHER, SELFPAY ==
[2023-03-12 08:25] LABS: Hematocrit 40.6 % (37-47); Hemoglobin 12.7 g/dL (12.0-15.0); Mean Corp Hgb Conc 31.3 g/dL (32-36); Mean Corpuscular Hgb 29.7 pg (27.0-32.0); Mean Corpuscular Volume 95.1 fL (81-99); Mean Platelet Vol. 14.1 fl (6.2-12.0); Platelet Count 127 K/mm3 (150-450); RBC Distribution Width CV 12.2 % (11.6-14.6); RBC Distribution Width SD 42.5 fl (35.1-43.9); Red Blood Count 4.27 M/mm3 (4.2-5.4); White Blood Count 5.4 K/mm3 (4.4-11.0)
[2023-03-12 08:34] LABS: Anion Gap 6 (5-15); BUN 18 mg/dL (7-18); BUN/Creat Ratio 27.2 RATIO (10-20); Calcium,Total 8.9 mg/dL (8.5-10.1); Chloride 112 mmol/L (98-107); Creatinine, Serum 0.66 mg/dL (0.55-1.02); EST Glomerular Filtration Rate 91 mL/min (>60); Est Glom Filt Rate - Afr Amer 110 mL/min (>60); Glucose 80 mg/dL (74-106); Potassium 3.9 mmol/L (3.5-5.1); Sodium Level 143 mmol/L (136-145)
== END ==
LOC: OLS.WHLCAR 05:00
PROVIDERS: PCP Family Medicine; Visit Provider Family Medicine
DX: I10 Essential (primary) hypertension (principal); J18.9 Pneumonia, unspecified organism; E86.0 Dehydration; F03.918 Unspecified dementia, unspecified severity, with other behavioral disturbance; R13.11 Dysphagia, oral phase; R48.8 Other symbolic dysfunctions
CPT/HCPCS: 36415; 80048; 85027